=== PATIENT | male | born 1940 | race Caucasian/White ===

== ENCOUNTER → 2017-11-30 13:30 | Outpatient (CLI) | payer MEDICARE, BC, SELFPAY | PROVIDERS: PCP Family Medicine; Visit Provider Psychiatry & Neurology Neurology | DX: G20 Parkinson's disease (principal); I10 Essential (primary) hypertension | CPT/HCPCS: 99214 ==

== ENCOUNTER → 2017-12-01 10:34 | Outpatient (CLI) | payer MEDICARE, BC, SELFPAY | PROVIDERS: PCP Family Medicine | DX: R13.11 Dysphagia, oral phase (principal); R49.8 Other voice and resonance disorders | CPT/HCPCS: 92507 ==

== ENCOUNTER 2017-12-15 15:00 | Outpatient (RCR) | payer MEDICARE, BC, SELFPAY ==
--- NOTE | 2017-11-23 15:00 | PTTR_ITS ---
DATE: 11/23/17 SUBJECTIVE: Doing okay today. No complaints of any elbow or knee irritation given today throughout session. OBJECTIVE: Therapeutic procedures ([id number]) * x See flow sheet: Focus on strengthening of bilateral LE/ UE and core / hip stabilization. * x Provided skilled instruction in proper exercise performance * x Provided skilled manual cues to facilitate proper muscle recruitment and/ or movement pattern Ended session with MHP x 10 minutes to low back while in seated position. Direct treatment time: 45 minutes Total treatment time: 55 minutes
--- NOTE | 2017-11-25 14:49 | PTTR_ITS ---
DATE: 11/25/17 SUBJECTIVE: Wade states today that he is trying to speak more loudly and open his mouth wider when speaking, per speech therapy consultation. Did not feel that he was able to increase any of his exercises today, and feels as though he gets a good fatigue level with his current weights and reps. OBJECTIVE: Therapeutic procedures ([id number]). * x See flow sheet: focus was on strengthening of bilateral UE/LE and core/ hip stabilization. * Verbal and tactile cues were provided throughout today's session for proper positioning and isolation of specific muscles. * Treatment ended with application of moist heat pack to the low back w/ cryotherapy to the left knee x10 minutes while seated at no charge. Direct treatment time: 45 minutes Total treatment time: 55 minutes SG/gc
--- NOTE | 2017-12-06 14:00 | PTTR_ITS ---
DATE: 12/06/17 SUBJECTIVE: Wade states he has been holding up pretty well. He has been working quite a bit with speech pathologist working on volume and tongue motions. He follows up with them next week. Overall feels more stable on his feet with PT and has been holding up well with his HEP so long as his home care provider is there to help with some of the exercises, getting bands set up for him. Therapeutic procedures ([id number]). Bilateral UE/LE strengthening. Work on some verbal cues for proper squatting positions to avoid excessive anterior translation of knees over toes. Also offer verbal cues for proper upper back, postural positioning to avoid such slouched forward head posturing. Discuss this will also help with his vocal cord strength for volume of speech. Did progress to incorporate some Nautilus resistance hamstring and quad strengthening exercises. Direct treatment time: 30 mins Total treatment time: 30 mins followed by completion of strengthening with PSYCH SOCIAL WORKER April Quinones PTA (see her note) P: Continue as above 2x a week for next couple weeks, then start tapering him off for just HEP. MM/dl
--- NOTE | 2017-12-06 14:30 | PTTR_ITS ---
DATE: 12/06/17 Co-treat with supervising PT, Amadou Sandhu. OBJECTIVE: Therapeutic procedures ([id number]) * x See flow sheet: Completed remaining therapeutic exercises with client, adding quad and hams machines as per supervising PT's request. * x Provided skilled instruction in proper exercise performance * x Provided skilled manual cues to facilitate proper muscle recruitment and/ or movement pattern MHP to low back and cryotherapy to left knee at conclusion of session. Direct treatment time: 20 minutes Total treatment time: 30 minutes
--- NOTE | 2017-12-09 14:34 | PTTR_ITS ---
DATE: 12/09/17 SUBJECTIVE: No complaints are offered today. He asks for an updated HEP, secondary to having so many different papers that he is not sure what he should be performing. We discussed attending P.T. 1x per week, and he agrees. OBJECTIVE: Therapeutic procedures ([id number]). * x See flow sheet: upgraded his program by increasing reps of hip flexion, trying to work on AAROM while seated, working eccentric holds. Performed a ther-ex routine with verbal and tactile cues for proper pelvic alignment with standing hip PREs. Direct treatment time: 2:45 til 3:30 P.M. Assessment: Holding up very well with exercises. I do feel it is appropriate to start decreasing his frequency of treatment to 1x per week. MM/gc
--- NOTE | 2017-12-15 09:52 | PTTR_ITS ---
DATE: 12/15/17 SUBJECTIVE: Wade states that he is doing ok. He admits that he feels a little stronger and his endurance is better to tolerate functional activities at home. His pain level has not changed much. OBJECTIVE: Therapeutic procedures ([id number]). * x See flow sheet: for global strength and conditioning while incorporating functional mobility * x Provided skilled instruction in proper exercise performance: to avoid compensation, and engage specific muscle groups. * Ended with cryo to low back x 10 min. Direct treatment time: 35 min Total treatment time: 50 min (finished via wellness at no charge.)
== END 2017-12-17 23:59 | disposition home or self-care (01) ==
LOC: PT 15:00
PROVIDERS: PCP Family Medicine; Referring Provider Family Medicine; Visit Provider Family Medicine
DX: M25.562 Pain in left knee (principal); R26.89 Other abnormalities of gait and mobility; R29.898 Other symptoms and signs involving the musculoskeletal system; M06.9 Rheumatoid arthritis, unspecified
CPT/HCPCS: 97110

== ENCOUNTER 2017-12-16 02:46 | Outpatient (CLI) | payer MEDICARE, BC, SELFPAY | END 2017-12-16 02:47 | PROVIDERS: PCP Family Medicine | DX: R13.11 Dysphagia, oral phase (principal); R49.0 Dysphonia | CPT/HCPCS: 92507 ==

== ENCOUNTER 2017-12-30 11:02 | Outpatient (RCR) | payer MEDICARE, BC, SELFPAY | END 2018-01-16 23:59 | disposition home or self-care (01) | LOC: SP 11:02 | PROVIDERS: PCP Family Medicine | DX: R13.11 Dysphagia, oral phase (principal); R47.89 Other speech disturbances | CPT/HCPCS: 92507 ==

== ENCOUNTER 2018-01-31 09:58 | Outpatient (CLI) | payer MEDICARE, BC, SELFPAY ==
[2018-01-31 14:33] LABS: Abs Immature Grans 0.01 k/cumm (0.0-0.09); Absolute Basophil Count 0.01 k/cumm (0.0-0.2); Absolute Eosinophil Count 0.06 k/cumm (0.0-0.7); Absolute Monocyte Count 0.47 k/cumm (0.11-0.7); Absolute Neutrophil Count 3.76 k/cumm (1.2-6.7); Basophils % 0.2; Eosinophils % 1.1; HCT 35.8 % (40.0-50.0); HGB 11.8 g/dL (13.5-17.5); Immature Grans % 0.2; Lymphocytes % 23.2; Mean Corpuscular Hemoglobin 34.3 pg (27.0-33.0); Mean Corpuscular Volume 104.1 fL (80-95); Mean Platelet Volume 9.7 fL (8.0-11.0); Monocytes % 8.4; Neutrophils % 66.9; Platelet Count 149 x1000/uL (130-400); RBC 3.44 m/cumm (4.50-6.00); RBC Distribution Width 13.6 % (11.8-14.1); White Blood Cell Count 5.61 k/cumm (4.4-10.8)
[2018-01-31 15:07] LABS: ALT 16 U/L (12-78); AST 27 U/L (15-37); Albumin 4.2 g/dL (3.4-5.0); Alkaline Phosphatase 59 U/L (46-116); Anion Gap 8.8 mmol/L (3-11); BUN 44 mg/dL (7-18); Bilirubin, Total 0.3 mg/dL (0.2-1.0); C-Reactive Protein 0.19 mg/dL (0.0-0.3); CO2 28.2 mmol/L (21.0-32.0); Calcium 9.1 mg/dL (8.5-10.1); Chloride 104 mmol/L (98-107); Glucose 109 mg/dL (70-100); Potassium 5.7 mmol/L (3.5-5.1); Sodium 141 mmol/L (136-145); Total Protein 7.4 g/dL (6.4-8.2)
== END 2018-01-31 10:18 ==
PROVIDERS: PCP Family Medicine; Referring Provider Internal Medicine; Visit Provider Internal Medicine Rheumatology
DX: C61 Malignant neoplasm of prostate (principal); M06.9 Rheumatoid arthritis, unspecified; Z79.899 Other long term (current) drug therapy; I10 Essential (primary) hypertension; G20 Parkinson's disease; K11.7 Disturbances of salivary secretion
CPT/HCPCS: 80053; 99214; 84153; 84154; 85025; 86140

== ENCOUNTER 2018-03-17 01:33 | Outpatient (CLI) | payer MEDICARE, BC, SELFPAY ==
[2018-03-17 11:30] LABS: CREATININE 1.09 mg/dL (0.70-1.30)
[2018-03-17] MEDS: Omnipaque 350 MG/ML 50 ML BTL IJ (11:39)
[2018-03-17] MEDS: Omnipaque 350 MG/ML 100 ML BTL IJ (13:13)
--- NOTE | 2018-03-17 13:14 | DI.CT_ITS ---
SYMPTOMS/DIAGNOSIS: H/O PROSTATE CA, RISING PSA, C61 ABDOMINAL AND PELVIC CT: CT examination of the abdomen and pelvis was performed with a bolus infusion of 100 cc's of Omnipaque 350 and ingestion of dilute barium. Biphasic hepatic imaging was obtained. The visualized lung bases are clear. The liver and spleen appear normal. No pancreatic abnormality seen. The adrenals and kidneys appear normal. The abdominal aorta is of normal diameter and no major vascular abnormality is seen. No significant abdominal wall hernia seen. No abdominal or pelvic adenopathy identified. No evidence of bowel obstruction. Multiple vascular clips noted in the region of the prostate. No focal bony lesion identified. Marked degenerative changes of the lumbar spine noted. The adrenals and kidneys appear normal. No evidence of urinary tract calcification or obstruction. The urinary bladder is unremarkable in appearance. CONCLUSION: No evidence of acute disease. No specific evidence of prostatic metastatic disease.
--- NOTE | 2018-03-17 14:30 | DI.NM_ITS ---
SYMPTOMS/DIAGNOSIS: H/O PROSTATE CA, RISING PSA, C61 WHOLE BODY BONE SCAN: Whole body bone scan was performed with intravenous infusion of 23.5 mCi of technetium 99 labelled methylene diphosphonate with delayed imaging of the whole body. Today's CT examination showed severe degenerative changes and scoliosis of the lumbar spine. This corresponds to areas of increased uptake seen in the lumbar region on bone scan. Mildly increased uptake noted in the elbows, shoulders and ankles bilaterally, consistent with degenerative change with bilateral knee joint replacements in position. No other areas of increased uptake seen. CONCLUSION: Findings as described are unlikely to represent metastatic disease. Severe DJD of the lumbar spine.
== END 2018-03-17 01:53 ==
PROVIDERS: PCP Family Medicine; Visit Provider Nurse Practitioner Family
DX: R97.20 Elevated prostate specific antigen [PSA] (principal); Z85.46 Personal history of malignant neoplasm of prostate; M85.871 Other specified disorders of bone density and structure, right ankle and foot; M85.872 Other specified disorders of bone density and structure, left ankle and foot; M85.832 Other specified disorders of bone density and structure, left forearm; M85.831 Other specified disorders of bone density and structure, right forearm; M85.811 Other specified disorders of bone density and structure, right shoulder; M85.812 Other specified disorders of bone density and structure, left shoulder; M47.816 Spondylosis without myelopathy or radiculopathy, lumbar region; Z96.653 Presence of artificial knee joint, bilateral
CPT/HCPCS: 36415; 78306; 74177; 82565; J3490; Q9967

== ENCOUNTER → 2018-04-04 11:17 | Outpatient (BNVA) | payer MEDICARE, BC, SELFPAY | PROVIDERS: PCP Family Medicine; Visit Provider Psychiatry & Neurology Neurology | DX: G20 Parkinson's disease (principal); G24.01 Drug induced subacute dyskinesia; T42.8X5A Adverse effect of antiparkinsonism drugs and other central muscle-tone depressants, initial encounter; I10 Essential (primary) hypertension; K11.7 Disturbances of salivary secretion | CPT/HCPCS: 99214 ==

== ENCOUNTER 2018-04-13 11:31 | Outpatient (CLI) | payer MEDICARE, BC, SELFPAY ==
[2018-04-13 15:19] LABS: Potassium 4.8 mmol/L (3.5-5.1)
== END 2018-04-13 11:51 ==
PROVIDERS: PCP Family Medicine; Visit Provider Family Medicine
DX: E78.5 Hyperlipidemia, unspecified (principal)
CPT/HCPCS: 36415; 84132

== ENCOUNTER 2018-06-29 10:11 | Outpatient (CLI) | payer MEDICARE, BC, SELFPAY ==
[2018-06-29 12:34] LABS: Absolute Basophil Count 0.02 k/cumm (0.0-0.2); Absolute Eosinophil Count 0.05 k/cumm (0.0-0.7); Absolute Lymphocyte Count 1.21 k/cumm (1.2-3.4); Absolute Monocyte Count 0.36 k/cumm (0.11-0.7); Absolute Neutrophil Count 2.97 k/cumm (1.2-6.7); Basophils % 0.4; Eosinophils % 1.1; HCT 35.6 % (40.0-50.0); HGB 11.7 g/dL (13.5-17.5); Lymphocytes % 26.2; Mean Corp. HGB Concentration 32.9 g/dL (32.0-36.0); Mean Corpuscular Hemoglobin 34.1 pg (27.0-33.0); Mean Corpuscular Volume 103.8 fL (80-95); Mean Platelet Volume 9.9 fL (8.0-11.0); Monocytes % 7.8; Neutrophils % 64.5; Platelet Count 158 x1000/uL (130-400); RBC 3.43 m/cumm (4.50-6.00); RBC Distribution Width 13.3 % (11.8-14.1); White Blood Cell Count 4.61 k/cumm (4.4-10.8)
[2018-06-29 12:52] LABS: ALT 14 U/L (12-78); AST 30 U/L (15-37); Alkaline Phosphatase 65 U/L (46-116); BUN 27 mg/dL (7-18); Bilirubin, Total 0.4 mg/dL (0.2-1.0); CREATININE 1.18 mg/dL (0.70-1.30); Calcium 9.2 mg/dL (8.5-10.1); Chloride 103 mmol/L (98-107); Glucose 118 mg/dL (70-100); Potassium 4.8 mmol/L (3.5-5.1); Sodium 140 mmol/L (136-145)
[2018-06-29 12:58] LABS: C-Reactive Protein < 0.05 mg/dL (0.0-0.3)
== END 2018-06-29 10:31 ==
PROVIDERS: PCP Family Medicine; Visit Provider Internal Medicine Rheumatology
DX: M06.9 Rheumatoid arthritis, unspecified (principal); Z79.899 Other long term (current) drug therapy
CPT/HCPCS: 36415; 80053; 85025; 86140

== ENCOUNTER → 2018-07-11 13:25 | Outpatient (BNVA) | payer MEDICARE, BC, SELFPAY | PROVIDERS: PCP Family Medicine; Visit Provider Psychiatry & Neurology Neurology | DX: G20 Parkinson's disease (principal); G24.01 Drug induced subacute dyskinesia; T42.8X5A Adverse effect of antiparkinsonism drugs and other central muscle-tone depressants, initial encounter | CPT/HCPCS: 99214 ==

== ENCOUNTER 2018-07-15 15:09 | Outpatient (REF) | payer MEDICARE, BC, SELFPAY ==
--- NOTE | 2018-07-15 13:45 | SKI_PTH ---
PATIENT: Wade Lau LOC: [facility] U#:[id number] AGE/SX: 78/M ROOM: RE07/15/[address]: Willie Hodges MD : [id number] BED: DIS: 07/15/2018 SPEC #: [id number] RECD: 07/18/18 12:48 STATUS: XIMNEA REQ #: [id number] WON: 07/15/18 13:[address]: Willie Hodges DEPT: Surgical Specimen RECD BY: Leonela Parks Tissues: 1 - SKIN BIOPSY(SHAVE/PUNCH) Procedures: IMMUNOPEROXIDASE STAIN SKIN LEVEL 4 Comments: [id number]
== END 2018-07-15 15:29 ==
LOC: LBN 15:09
PROVIDERS: PCP Family Medicine; Visit Provider Family Medicine
DX: D22.72 Melanocytic nevi of left lower limb, including hip (principal)
CPT/HCPCS: 88305; 88361

== ENCOUNTER 2018-08-31 10:08 | Outpatient (CLI) | payer MEDICARE, BC, SELFPAY ==
[2018-08-31 13:15] LABS: Abs Immature Grans 0.01 k/cumm (0.0-0.09); Absolute Basophil Count 0.01 k/cumm (0.0-0.2); Absolute Eosinophil Count 0.07 k/cumm (0.0-0.7); Absolute Monocyte Count 0.38 k/cumm (0.11-0.7); Absolute Neutrophil Count 2.51 k/cumm (1.2-6.7); Basophils % 0.2; Eosinophils % 1.6; HCT 37.1 % (40.0-50.0); HGB 12.3 g/dL (13.5-17.5); Immature Grans % 0.2; Mean Corp. HGB Concentration 33.2 g/dL (32.0-36.0); Mean Corpuscular Hemoglobin 33.4 pg (27.0-33.0); Mean Corpuscular Volume 100.8 fL (80-95); Monocytes % 8.7; Neutrophils % 57.3; Platelet Count 149 x1000/uL (130-400); RBC 3.68 m/cumm (4.50-6.00); White Blood Cell Count 4.38 k/cumm (4.4-10.8)
[2018-08-31 14:26] LABS: ALT 15 U/L (12-78); AST 24 U/L (15-37); Albumin 4.1 g/dL (3.4-5.0); Alkaline Phosphatase 56 U/L (46-116); BUN 35 mg/dL (7-18); Bilirubin, Total 0.4 mg/dL (0.2-1.0); CREATININE 1.07 mg/dL (0.70-1.30); Calcium 9.4 mg/dL (8.5-10.1); Chloride 104 mmol/L (98-107); Glucose 105 mg/dL (70-100); Potassium 5.3 mmol/L (3.5-5.1); Sodium 140 mmol/L (136-145); Total Protein 7.3 g/dL (6.4-8.2)
[2018-08-31 14:38] LABS: C-Reactive Protein < 0.05 mg/dL (0.0-0.3)
[2018-09-01 10:05] LABS: PSA, Diagnostic 2.7 ng/ml (0-6.5)
== END 2018-08-31 10:28 ==
PROVIDERS: Internal Medicine; PCP Family Medicine; Visit Provider Internal Medicine Rheumatology
DX: C61 Malignant neoplasm of prostate (principal); M06.9 Rheumatoid arthritis, unspecified; Z79.899 Other long term (current) drug therapy
CPT/HCPCS: 36415; 80053; 84153; 85025; 86140

== ENCOUNTER → 2018-10-12 14:07 | Outpatient (BNVA) | payer MEDICARE, BC, SELFPAY | PROVIDERS: PCP Family Medicine; Visit Provider Psychiatry & Neurology Neurology | DX: K11.7 Disturbances of salivary secretion (principal); G20 Parkinson's disease; G56.03 Carpal tunnel syndrome, bilateral upper limbs; G56.22 Lesion of ulnar nerve, left upper limb; I10 Essential (primary) hypertension | CPT/HCPCS: 99214 ==

== ENCOUNTER 2019-01-04 12:08 | Outpatient (CLI) | payer MEDICARE, BC, SELFPAY ==
[2019-01-04 14:51] LABS: Abs Immature Grans 0.01 k/cumm (0.0-0.09); Absolute Basophil Count 0.01 k/cumm (0.0-0.2); Absolute Eosinophil Count 0.06 k/cumm (0.0-0.7); Absolute Lymphocyte Count 1.23 k/cumm (1.2-3.4); Absolute Monocyte Count 0.31 k/cumm (0.11-0.7); Absolute Neutrophil Count 2.88 k/cumm (1.2-6.7); Basophils % 0.2; Eosinophils % 1.3; HCT 35.3 % (40.0-50.0); HGB 11.4 g/dL (13.5-17.5); Immature Grans % 0.2; Lymphocytes % 27.3; Mean Corp. HGB Concentration 32.3 g/dL (32.0-36.0); Mean Corpuscular Volume 102.3 fL (80-95); Mean Platelet Volume 9.5 fL (8.0-11.0); Monocytes % 6.9; Neutrophils % 64.1; Platelet Count 165 x1000/uL (130-400); RBC 3.45 m/cumm (4.50-6.00); RBC Distribution Width 13.7 % (11.8-14.1)
[2019-01-04 15:42] LABS: ALT 18 U/L (16-63); AST 24 U/L (15-37); Alkaline Phosphatase 56 U/L (46-116); Anion Gap 11.6 mmol/L (3-11); BUN 33 mg/dL (7-18); Bilirubin, Total 0.4 mg/dL (0.2-1.0); CO2 25.4 mmol/L (21.0-32.0); CREATININE 1.14 mg/dL (0.70-1.30); Chloride 104 mmol/L (98-107); Glucose 133 mg/dL (70-100); Potassium 4.7 mmol/L (3.5-5.1); Sodium 141 mmol/L (136-145)
[2019-01-04 15:50] LABS: C-Reactive Protein < 0.05 mg/dL (0.0-0.3)
== END 2019-01-04 12:28 ==
PROVIDERS: PCP Family Medicine; Visit Provider Internal Medicine Rheumatology
DX: M06.9 Rheumatoid arthritis, unspecified (principal); Z79.899 Other long term (current) drug therapy
CPT/HCPCS: 36415; 80053; 85025; 86140

== ENCOUNTER → 2019-01-23 12:56 | Outpatient (BNVA) | payer MEDICARE, BC, SELFPAY | PROVIDERS: PCP Family Medicine; Referring Provider Family Medicine; Visit Provider Psychiatry & Neurology Neurology | DX: K11.7 Disturbances of salivary secretion (principal); G24.01 Drug induced subacute dyskinesia; G56.03 Carpal tunnel syndrome, bilateral upper limbs; G56.22 Lesion of ulnar nerve, left upper limb; G20 Parkinson's disease; R13.10 Dysphagia, unspecified; I10 Essential (primary) hypertension | CPT/HCPCS: 99214 ==

== ENCOUNTER 2019-03-16 02:48 | Emergency (ER) | payer MEDICARE, BC, SELFPAY ==
[2019-03-16 02:48] VITALS: BP 100/71; PULSE 77; RESP 14; TEMP 36.6; O2SAT 97
[2019-03-16 02:58] VITALS: RESP 15
--- NOTE | 2019-03-16 03:08 | ED.GENADUL_ITS ---
Discharge Plan Disposition Patient Disposition: HOME Condition: Good Discharge Details Chief Complaint: GenMedical Clinical Impression: Mild renal insufficiency, Generalized weakness Primary Care Provider: Willie Hodegs ED Provider: Toño Fay [place] Meds and New Rx's Prescriptions: Continued cyanocobalamin (vitamin B-12) 1,000 mcg tablet 1,000 mcg PO DAILY RF: 0 omega-3 fatty acids [Fish Oil Concentrate] 1,000 mg capsule 1,000 mg PO DAILY RF: 0 loperamide [Anti-Diarrheal (loperamide)] 2 mg capsule 2 mg PO DAILY PRN RF: 0 ibuprofen 200 mg tablet 200 - 800 mg PO HS PRN RF: 0 amoxicillin 500 mg capsule 2 gm PO ONCE PRN (Reason: TAKE 1 HOUR PRIOR TO DENTAL WORK) RF: 0 folic acid 1 mg tablet 1 mg PO DAILY RF: 0 ascorbic acid (vitamin C) 500 mg tablet 500 mg PO .4 DAYS A WEEK RF: 0 zinc 50 mg tablet 50 mg PO .3 DAYS A WEEK RF: 0 misoprostol 100 mcg tablet 100 mcg PO QAM Qty: 90 RF: 3 sertraline 50 mg tablet 50 mg PO DAILY Qty: 90 RF: 3 sertraline 25 mg tablet 25 mg PO DAILY Qty: 90 RF: 3 psyllium husk [Metamucil] 0.4 gram capsule 0.4 gm PO PRN PRNRF: 0 econazole 1 % cream 1 applic TP BID RF: 0 lisinopril 40 mg tablet 20 mg PO DAILY RF: 0 cetirizine 10 mg tablet 5 mg PO DAILY PRNRF: 0 Enbrel 50 MG/1 ML syringe 50 mg SQ 1x/wk RF: 0 fluocinonide 120 GM cream 120 gm Topical PRN RF: 0 Benedict-Mag 1 EACH tablet,chewable 1 ea PO DAILY RF: 0 cholecalciferol (vitamin D3) [Vitamin D3] 2,000 UNIT capsule 1,000 unit PO DAILY RF: 0 nystatin 100,000 unit/gram powder 1 applic TP BID PRN (Reason: inguinal rash) Qty: 30 RF: 1 methotrexate sodium 2.5 mg tablet 5 mg PO QWEEK Qty: 24 RF: 3 simvastatin 10 mg tablet 10 mg PO QPM Qty: 90 RF: 3 trazodone 50 mg tablet 50 - 100 mg PO HS Qty: 180 RF: 2 famotidine 40 mg tablet 40 mg PO QHS Qty: 90 RF: 3 carbidopa-levodopa 25-100 mg tablet 1 tab PO TID Qty: 270 RF: 3 Discharge Instructions Instructions: Weakness (ED) Additional Instructions: Please remember to drink plenty of fluids to hydrate. Always use your walker or cane to help with ambulation. Follow-up with primary care next week for reevaluation and for repeat labs. Return to ED if you develop fever, mental status changes, focal weakness, chest pain, abdominal pain, other concerns or problems. Referrals: Willie Hodges [Primary Care Provider] - Medical Decision Making Patient presenting with more of a general weakness and mild confusion than anything else. This does not strike me as focal issue related to stroke. He is afebrile and has normal vitals. However I feel work-up for metabolic and infectious etiologies is appropriate. IV established and laboratory studies obtained. Chest x-ray and urinalysis ordered. EKG ordered. EKG is normal. Laboratory studies for the most part unremarkable other than some elevation of his kidney function. He reports no vomiting or diarrhea. He does think he has been eating and drinking okay but admits maybe not as well as he should be. He is not on diuretics. Urine is negative for infection. Chest x-ray without acute disease. Patient was able to get up here and ambulate with a walker without significant difficulty. He reports that he is walking about the way he usually does. His biggest issue seems to be trying to get up from a sitting position. He reports that physical therapy has been teaching him exercises to get better with this. He is able to eat and drink without difficulty so I think he should build to hydrate at home. He will need to follow-up with primary care next week for repeat BMP. Return to ED if he develops fever, mental status changes, focal neurologic changes, chest pain, abdominal pain, other concerns or problems. Medical Records Medical records reviewed: Yes I reviewed the patient's medical records. Lab Data Lab results reviewed: Yes I reviewed the patient's lab results. ECG Data Attestation: I personally reviewed and interpreted this ECG (s) as follows: Prior ECG tracings: not available for review Interpretation: Sinus rhythm at 72. Normal intervals and axis. No ST changes. HPI General Mode of arrival: EMS . Date/Time Provider Initiated Documentation: 03/16/19 02:55 . Limitations to Documentation: no limitations . Information obtained by: patient, EMS, RN notes reviewed and old records reviewed . HPI Narrative: Patient presents to ED by ambulance because of inability to get out of his chair. He was having difficulty getting out of his chair. Had a friend come over and she thought he was having some speech problems and that his right leg was weak. EMS was called. Patient was transported here. Patient reports that the right thigh is always weak and has been since his knee replacement. He reports having difficulty getting out of his chair at times but not always. He also reports having some difficulty with remembering what he was going to say not speech difficulty per se. This has been ongoing for a few weeks and is not acutely different tonight. He denies being ill recently. He has been eating and drinking normally. He does have a history of Parkinson's as well as severe rheumatoid arthritis. Denies chest pain, shortness of breath, abdominal pain, headache. Related Data Home Medications Medication Instructions Recorded Confirmed Enbrel 50 mg SQ 1x/wk 12/04/13 03/16/19 fluocinonide 120 gm TOPICAL PRN 12/04/13 03/16/19 Benedict-Mag 1 ea PO DAILY tab.chew 10/30/14 03/16/19 cholecalciferol (vitamin D3) 1,000 unit PO DAILY 06/30/16 03/16/19 [Vitamin D3] amoxicillin 500 mg capsule 2 gm PO ONCE PRN cap 12/24/17 03/16/19 cyanocobalamin (vitamin B-12) 1,000 mcg PO DAILY 12/24/17 03/16/19 1,000 mcg tablet ibuprofen 200 mg tablet 200 - 800 mg PO HS PRN tab 12/24/17 03/16/19 loperamide 2 mg capsule 2 mg PO DAILY PRN cap 12/24/17 03/16/19 omega-3 fatty acids 1,000 mg 1,000 mg PO DAILY 12/24/17 03/16/19 capsule ascorbic acid (vitamin C) 500 mg 500 mg PO .4 DAYS A WEEK tab 04/04/18 03/16/19 tablet zinc 50 mg tablet 50 mg PO .3 DAYS A WEEK tab 04/04/18 03/16/19 nystatin 100,000 unit/gram topical 1 applic TP BID PRN #30 gm 05/10/18 03/16/19 powder econazole 1 % topical cream 1 applic TP BID 10/12/18 03/16/19 folic acid 1 mg tablet 1 mg PO DAILY tab 10/12/18 03/16/19 psyllium husk 0.4 gram capsule 0.4 gm PO PRN PRN cap 10/12/18 03/16/19 methotrexate sodium 2.5 mg tablet 5 mg PO QWEEK #24 tab 11/14/18 03/16/19 simvastatin 10 mg tablet 10 mg PO QPM #90 tab 11/14/18 03/16/19 trazodone 50 mg tablet 50 - 100 mg PO HS #180 tab 11/15/18 03/16/19 cetirizine 10 mg tablet 5 mg PO DAILY PRN 01/23/19 03/16/19 lisinopril 40 mg tablet 20 mg PO DAILY tab-cap 01/23/19 03/16/19 misoprostol 100 mcg tablet 100 mcg PO QAM #90 tab 01/24/19 03/16/19 sertraline 25 mg tablet 25 mg PO DAILY #90 tab 01/24/19 03/16/19 sertraline 50 mg tablet 50 mg PO DAILY #90 tab 01/24/19 03/16/19 famotidine 40 mg tablet 40 mg PO QHS #90 tab 02/13/19 03/16/19 carbidopa 25 mg-levodopa 100 mg 1 tab PO TID #270 tab 02/23/19 03/16/19 tablet Previous Rx's Medication Instructions Recorded nystatin 100,000 unit/gram topical 1 applic TP BID PRN #30 gm 05/10/18 powder methotrexate sodium 2.5 mg tablet 5 mg PO QWEEK #24 tab 11/14/18 simvastatin 10 mg tablet 10 mg PO QPM #90 tab 11/14/18 trazodone 50 mg tablet 50 - 100 mg PO HS #180 tab 11/15/18 misoprostol 100 mcg tablet 100 mcg PO QAM #90 tab 01/24/19 sertraline 25 mg tablet 25 mg PO DAILY #90 tab 01/24/19 sertraline 50 mg tablet 50 mg PO DAILY #90 tab 01/24/19 famotidine 40 mg tablet 40 mg PO QHS #90 tab 02/13/19 carbidopa 25 mg-levodopa 100 mg 1 tab PO TID #270 tab 02/23/19 tablet Allergies Allergy/AdvReac Type Severity Reaction Status Date / Time POLLEN Allergy Unknown Uncoded 01/24/19 14:21 dust AdvReac Unknown PND, RUNNY Uncoded 01/24/19 14:21 NOSE General Stated Complaint: GenMedical ELAINE: 3 Review of Systems Narrative: 01/30 Review of Systems completed and is negative except as stated above in HPI (Systems reviewed: Const, Eyes, ENT, Resp, CV, GI, , MSK, Skin, Neuro) PFSH Medical History Hyperlipidemia Hypertension Insomnia Ocular hemorrhage Parkinsonism (Acute) 10/29/14; [facility] ([facility] SCANNED) Prostate cancer RA (rheumatoid arthritis) Spinal stenosis Surgical History Extraction of cataract LEFT REMOVAL; LEFT RETINAL BUCKLE W/VITRIECTOMY; RIGHT RETINAL DETACHMENT W/VITRIECTOMY; YAG LASER TX CLOUDED LENS FOOT SURGERY (~1979) Open Carpal Tunnel release Prostatectomy RADICAL Replacement of total knee joint (~12/2013) Both spinal surgery Total replacement of hip RIGHT Transurethral prostatectomy Social History Smoking/Tobacco Use Status: Never Alcohol Intake: current Alcohol Intake frequency: 0-2 drinks per day Substance use type: does not use Duration: 15-30 minutes/day Frequency: 3-4 times per week Seatbelt use: always Do you feel safe at home: Yes Do you feel safe in your relationship?: Yes Exam Narrative Exam Narrative: Vitals: Afebrile. Normal vitals and room air pulse ox. Const: Thin elderly male in NAD. HEENT: NC/AT. Normal facial exam. Neck: Supple. Trachea midline. Lungs: Normal respiratory effort. Lungs are clear. Cor: RRR with murmur. Good radial pulses. GI: Soft. NT/ND. No guarding or rebound. Neuro: A+O x 3. CN grossly in tact. Good strength in the upper extremities. Sensation intact. Good distal strength in the lower extremities. Difficulty elevating right leg off bed which patient states is chronic. Speech is clear to me with no dysarthria or a aphasia. He does have pauses and memory lapses but usually recovers with some time. Ext: No C/C/E. Bilateral hand atrophy. Skin: Warm and dry without rash. Course Vital Signs Vital signs: Vital Signs Temperature 97.9 F 03/16/19 02:48 Pulse 77 03/16/19 02:48 Respiratory Rate 14 03/16/19 02:48 Blood Pressure 100/71 03/16/19 02:48 Pulse Oximetry 97 03/16/19 02:48 Temperature 97.9 F 03/16/19 02:48 Temperature Source Skin 03/16/19 02:48 Pulse 77 03/16/19 02:48 Respiratory Rate 15 03/16/19 02:58 Respiratory Effort 03/16/19 02:58 Blood Pressure 100/71 03/16/19 02:48 Blood Pressure Position Supine 03/16/19 02:48 Pulse Oximetry 97 03/16/19 02:48 Oxygen Delivery Method Room Air 03/16/19 02:48 Oxygen Flow Rate 0 03/16/19 02:48 Pain Level 0 03/16/19 02:48
[2019-03-16 03:30] LABS: Bilirubin Negative (Negative); Blood Negative (Negative); Clarity Clear (Clear); Glucose Negative (Negative); Ketones Negative (Negative); Leukocyte Esterase Negative (Negative); Nitrite Negative (Negative); Urobilinogen 0.2 EU/dL (Up TO 0.2)
[2019-03-16 03:41] LABS: Abs Immature Grans 0.02 k/cumm (0.0-0.09); Absolute Basophil Count 0.02 k/cumm (0.0-0.2); Absolute Eosinophil Count 0.08 k/cumm (0.0-0.7); Absolute Lymphocyte Count 1.03 k/cumm (1.2-3.4); Absolute Monocyte Count 0.69 k/cumm (0.11-0.7); Absolute Neutrophil Count 7.63 k/cumm (1.2-6.7); Basophils % 0.2; Eosinophils % 0.8; HCT 36.6 % (40.0-50.0); Immature Grans % 0.2; Lymphocytes % 10.9; Mean Corp. HGB Concentration 32.8 g/dL (32.0-36.0); Mean Corpuscular Hemoglobin 33.1 pg (27.0-33.0); Mean Corpuscular Volume 101.1 fL (80-95); Mean Platelet Volume 9.5 fL (8.0-11.0); Monocytes % 7.3; Neutrophils % 80.6; Platelet Count 196 x1000/uL (130-400); RBC 3.62 m/cumm (4.50-6.00); RBC Distribution Width 13.2 % (11.8-14.1); White Blood Cell Count 9.47 k/cumm (4.4-10.8)
--- NOTE | 2019-03-16 03:50 | NUR.NOTE ---
GENTRY Claire from home with c/o weakness. Pt was unable to get out of chair, called his friend Yessenia who called EMS. Yessenia notes pt was having difficulty with word finding. right leg seemed weak. Pt reports right leg has been weak for a long time after surgery and that he has been having word finding difficulty x several weeks. Face symmetrical, speech clear, slow at times. Tongue at midline. Pt having intermittent word finding difficulty. Pt reports difficulty lifting right leg off bed, 5/5 strength to [place] feet. SR on monitor. denies pain, recent illness, falls. Up to commode with 2 assist, pt unsteady on feet.
[2019-03-16 03:54] LABS: ALT 14 U/L (16-63); AST 22 U/L (15-37); Albumin 4.3 g/dL (3.4-5.0); Alkaline Phosphatase 63 U/L (46-116); Anion Gap 11.5 mmol/L (3-11); BUN 44 mg/dL (7-18); Bilirubin, Total 0.4 mg/dL (0.2-1.0); CO2 25.5 mmol/L (21.0-32.0); CREATININE 1.72 mg/dL (0.70-1.30); Calcium 9.4 mg/dL (8.5-10.1); Chloride 103 mmol/L (98-107); Estimated GFR 38.75 (mL/min/1.73m2); Glucose 110 mg/dL (74-106); Magnesium 2.1 mg/dL (1.8-2.4); Potassium 4.5 mmol/L (3.5-5.1); Sodium 140 mmol/L (136-145)
[2019-03-16 03:55] LABS: Troponin I < 0.05 ng/Ml (<0.06)
--- NOTE | 2019-03-16 03:57 | DI.RAD_ITS ---
EXAM: XR CHEST 2V PA LATERAL CLINICAL HISTORY: generalized weakness TECHNIQUE: The study was performed according to usual protocol. FINDINGS: Heart is not enlarged. Eventration of the diaphragm noted on the right portion of the colon interpos ed between liver and diaphragm. Findings appears similar to prior CT of 03/08/2018. There appear to be mild changes of COPD and scarring. No pleural effusion. No focal consolidation. IMPRESSION: No evidence of acute process.
--- NOTE | 2019-03-16 04:03 | NUR.NOTE ---
Neighbor/Friend Yessenia [phone]
--- NOTE | 2019-03-16 04:16 | DI.VRAD_ITS ---
PROCEDURE INFORMATION: Exam: XR Chest, 2 Views Exam date and time: 03/16/2019 3:52 AM Age: 79 years old Clinical history: Other: Generalized weakness TECHNIQUE: Imaging protocol: XR of the chest Views: 2 views. COMPARISON: No relevant prior studies available. FINDINGS: Lungs: Unremarkable. No consolidation. Pleural space: Unremarkable. No pleural effusion. No pneumothorax. Heart/Mediastinum: Unremarkable. No cardiomegaly. Diaphragm: Minimal elevation or eventration of right hemidiaphragm anteriorly. Bones/joints: Healed right rib fractures. IMPRESSION: No acute findings. Dictated and Authenticated by: Markos Owusu MD. Ordering:MAIK Lundberg MD
--- NOTE | 2019-03-16 04:30 | NUR.NOTE ---
ambulated in core with walker and steady gait. Pt reports he is ambulating at his baseline.
[2019-03-16 04:45] VITALS: BP 92/57; PULSE 82; RESP 16; TEMP 36.6; O2SAT 98
[2019-03-16] MEDS: Normal Saline 500 ML IV (04:45)
--- NOTE | 2019-03-16 05:18 | NUR.NOTE ---
Yessenia unable to drive in the dark, will pick pt up when it's light out.
[2019-03-16 05:19] VITALS: BP 97/51
== END 2019-03-16 06:43 | disposition home or self-care (01) ==
LOC: ER 05:56
PROVIDERS: Emergency Provider Emergency Medicine; PCP Family Medicine
DX: N28.9 Disorder of kidney and ureter, unspecified (principal); R53.1 Weakness; I10 Essential (primary) hypertension; G20 Parkinson's disease; Z96.653 Presence of artificial knee joint, bilateral
CPT/HCPCS: 36415; 80053; 93005; 96360; 99285; 71046; 81003; 83735; 84484; 85025; 93010; 99284

== ENCOUNTER 2019-03-23 10:04 | Outpatient (CLI) | payer MEDICARE, BC, SELFPAY ==
[2019-03-23 12:51] LABS: Abs Immature Grans 0.01 k/cumm (0.0-0.09); Absolute Basophil Count 0.02 k/cumm (0.0-0.2); Absolute Eosinophil Count 0.14 k/cumm (0.0-0.7); Absolute Lymphocyte Count 1.17 k/cumm (1.2-3.4); Absolute Monocyte Count 0.36 k/cumm (0.11-0.7); Absolute Neutrophil Count 3.35 k/cumm (1.2-6.7); Basophils % 0.4; Eosinophils % 2.8; HCT 36.8 % (40.0-50.0); HGB 11.8 g/dL (13.5-17.5); Immature Grans % 0.2; Lymphocytes % 23.2; Mean Corp. HGB Concentration 32.1 g/dL (32.0-36.0); Mean Corpuscular Hemoglobin 32.9 pg (27.0-33.0); Mean Corpuscular Volume 102.5 fL (80-95); Mean Platelet Volume 9.7 fL (8.0-11.0); Monocytes % 7.1; Neutrophils % 66.3; Platelet Count 194 x1000/uL (130-400); RBC 3.59 m/cumm (4.50-6.00); RBC Distribution Width 13.3 % (11.8-14.1); White Blood Cell Count 5.05 k/cumm (4.4-10.8)
[2019-03-23 13:03] LABS: C-Reactive Protein 0.08 mg/dL (0.0-0.3)
[2019-03-23 13:07] LABS: ALT 16 U/L (16-63); AST 29 U/L (15-37); Albumin 3.9 g/dL (3.4-5.0); Alkaline Phosphatase 58 U/L (46-116); Anion Gap 7.8 mmol/L (3-11); BUN 31 mg/dL (7-18); Bilirubin, Total 0.3 mg/dL (0.2-1.0); CO2 28.2 mmol/L (21.0-32.0); Calcium 9.1 mg/dL (8.5-10.1); Chloride 106 mmol/L (98-107); Estimated GFR 53.53 (mL/min/1.73m2); Glucose 109 mg/dL (74-106); Potassium 5.2 mmol/L (3.5-5.1); Sodium 142 mmol/L (136-145)
[2019-03-24 16:37] LABS: PSA, Diagnostic 4.4 ng/mL (0.0-6.5)
== END 2019-03-23 10:24 ==
PROVIDERS: Internal Medicine Rheumatology; Nurse Practitioner Family; PCP Family Medicine; Visit Provider Internal Medicine
DX: C61 Malignant neoplasm of prostate (principal); M06.9 Rheumatoid arthritis, unspecified; Z79.899 Other long term (current) drug therapy
CPT/HCPCS: 36415; 80053; 84153; 85025; 86140

== ENCOUNTER 2019-03-30 00:42 | Outpatient (CLI) | payer MEDICARE, BC, SELFPAY ==
[2019-03-30] MEDS: Omnipaque 350 MG/ML 100 ML BTL IJ (15:26)
--- NOTE | 2019-03-30 15:29 | DI.CT_ITS ---
EXAM: CT HEAD WO/W CLINICAL HISTORY: NEW ONSET HALLUCINATIONS, R44.1 TECHNIQUE: Before and after IV contrast COMPARISON: No exams were available for comparison FINDINGS: Intracranial hemorrhage, mass or infarct is seen. The ventricles are normal in size. No abnormal e nhancing lesions are seen on postcontrast images. There is no evidence of vascular occlusion or thro mbosis. No skull fracture or opacification of the sinuses or mastoid air cells is seen. There has b een previous surgery to both globes. IMPRESSION: Negative head CT
== END 2019-03-30 01:02 ==
PROVIDERS: PCP Family Medicine; Visit Provider Family Medicine
DX: R44.1 Visual hallucinations (principal)
CPT/HCPCS: 70470; J3490

== ENCOUNTER 2019-03-31 21:13 | Emergency (ER) | payer MEDICARE, BC, SELFPAY ==
[2019-03-31 21:15] VITALS: BP 122/59; PULSE 82; RESP 16; TEMP 37.4; O2SAT 99
[2019-03-31 21:20] VITALS: RESP 16
--- NOTE | 2019-03-31 21:25 | W.ED.GENAD ---
Discharge Plan Disposition Patient Disposition: HOME Condition: Stable Discharge Details Chief Complaint: AMS/LOC Clinical Impression: Disorientation Primary Care Provider: Willie Hodges ED Provider: Zeke Blanchard [place] Meds and New Rx's Prescriptions: Continued cyanocobalamin (vitamin B-12) 1,000 mcg tablet 1,000 mcg PO DAILY RF: 0 omega-3 fatty acids [Fish Oil Concentrate] 1,000 mg capsule 1,000 mg PO DAILY RF: 0 loperamide [Anti-Diarrheal (loperamide)] 2 mg capsule 2 mg PO DAILY PRN RF: 0 ibuprofen 200 mg tablet 200 - 800 mg PO HS PRN RF: 0 amoxicillin 500 mg capsule 2 gm PO ONCE PRN (Reason: TAKE 1 HOUR PRIOR TO DENTAL WORK) RF: 0 folic acid 1 mg tablet 1 mg PO DAILY RF: 0 ascorbic acid (vitamin C) 500 mg tablet 500 mg PO .4 DAYS A WEEK RF: 0 zinc 50 mg tablet 50 mg PO .3 DAYS A WEEK RF: 0 misoprostol 100 mcg tablet 100 mcg PO QAM Qty: 90 RF: 3 sertraline 50 mg tablet 50 mg PO DAILY Qty: 90 RF: 3 sertraline 25 mg tablet 25 mg PO DAILY Qty: 90 RF: 3 psyllium husk [Metamucil] 0.4 gram capsule 0.4 gm PO PRN PRNRF: 0 econazole 1 % cream 1 applic TP BID RF: 0 lisinopril 40 mg tablet 20 mg PO DAILY RF: 0 cetirizine 10 mg tablet 5 mg PO DAILY PRNRF: 0 atropine 1 % drops 1 - 4 drp sublingual QID PRN (Reason: secretions) Qty: 15 RF: 2 Enbrel 50 MG/1 ML syringe 50 mg SQ 1x/wk RF: 0 fluocinonide 120 GM cream 120 gm Topical PRN RF: 0 Benedict-Mag 1 EACH tablet,chewable 1 ea PO DAILY RF: 0 cholecalciferol (vitamin D3) [Vitamin D3] 2,000 UNIT capsule 1,000 unit PO DAILY RF: 0 nystatin 100,000 unit/gram powder 1 applic TP BID PRN (Reason: inguinal rash) Qty: 30 RF: 1 methotrexate sodium 2.5 mg tablet 5 mg PO QWEEK Qty: 24 RF: 3 simvastatin 10 mg tablet 10 mg PO QPM Qty: 90 RF: 3 trazodone 50 mg tablet 50 - 100 mg PO HS Qty: 180 RF: 2 famotidine 40 mg tablet 40 mg PO QHS Qty: 90 RF: 3 carbidopa-levodopa 25-100 mg tablet 1 tab PO TID Qty: 270 RF: 3 Discharge Instructions Additional Instructions: Follow up with your primary care provider within 1-2 weeks if you feel more ill or have fevers return to the emergency department Medical Decision Making 79 yo male with hx of parkinson's, recent visual hallucinations, who comes in after an episode where he was disoriented and arrives caox4 with no focal deficits or complaints. He denies fevers, chills, chest pain or abdominal pain and no focal deficits. He decclined to have any blood work or imaging done and requested to go home during the middle of the history and physical so this was not completed fully. HE has capacity to make his own decisions and understands risks of leaving without full h and p and workup of labs/imaging including and permanent disability and is willing to take these risks. HE understands he can always return if he changes his mind Differential Diagnosis Differential Diagnosis: dehydration, electrolyte abnormality, anemia HPI General Mode of arrival: EMS. Date/Time Provider Initiated Documentation: 03/31/19 21:25. Limitations to Documentation: no limitations. Information obtained by: patient. History of Present Illness 79 year old M presents to the emergency department with the chief complaint of disoriented, Patient started experiencing this hour(s) (1) and it has been now resolved. No relieving factors improve symptom(s), No exacerbating factors reported . Patient did receive the following treatments prior to arrival, none Related Data Home Medications Medication Instructions Recorded Confirmed Enbrel 50 mg SQ 1x/wk 12/04/13 03/31/19 fluocinonide 120 gm TOPICAL PRN 12/04/13 03/31/19 Benedict-Mag 1 ea PO DAILY tab.chew 10/30/14 03/31/19 cholecalciferol (vitamin D3) 1,000 unit PO DAILY 06/30/16 03/31/19 [Vitamin D3] amoxicillin 500 mg capsule 2 gm PO ONCE PRN cap 12/24/17 03/31/19 cyanocobalamin (vitamin B-12) 1,000 mcg PO DAILY 12/24/17 03/31/19 1,000 mcg tablet ibuprofen 200 mg tablet 200 - 800 mg PO HS PRN tab 12/24/17 03/31/19 loperamide 2 mg capsule 2 mg PO DAILY PRN cap 12/24/17 03/31/19 omega-3 fatty acids 1,000 mg 1,000 mg PO DAILY 12/24/17 03/31/19 capsule ascorbic acid (vitamin C) 500 mg 500 mg PO .4 DAYS A WEEK tab 04/04/18 03/31/19 tablet zinc 50 mg tablet 50 mg PO .3 DAYS A WEEK tab 04/04/18 03/31/19 nystatin 100,000 unit/gram topical 1 applic TP BID PRN #30 gm 05/10/18 03/31/19 powder econazole 1 % topical cream 1 applic TP BID 10/12/18 03/31/19 folic acid 1 mg tablet 1 mg PO DAILY tab 10/12/18 03/31/19 psyllium husk 0.4 gram capsule 0.4 gm PO PRN PRN cap 10/12/18 03/31/19 methotrexate sodium 2.5 mg tablet 5 mg PO QWEEK #24 tab 11/14/18 03/31/19 simvastatin 10 mg tablet 10 mg PO QPM #90 tab 11/14/18 03/31/19 trazodone 50 mg tablet 50 - 100 mg PO HS #180 tab 11/15/18 03/31/19 cetirizine 10 mg tablet 5 mg PO DAILY PRN 01/23/19 03/31/19 lisinopril 40 mg tablet 20 mg PO DAILY tab-cap 01/23/19 03/31/19 misoprostol 100 mcg tablet 100 mcg PO QAM #90 tab 01/24/19 03/31/19 sertraline 25 mg tablet 25 mg PO DAILY #90 tab 01/24/19 03/31/19 sertraline 50 mg tablet 50 mg PO DAILY #90 tab 01/24/19 03/22/19 famotidine 40 mg tablet 40 mg PO QHS #90 tab 02/13/19 03/31/19 carbidopa 25 mg-levodopa 100 mg 1 tab PO TID #270 tab 02/23/19 03/31/19 tablet atropine 1 % eye drops 1 - 4 drp SUBLINGUAL QID PRN #15 ml 03/22/19 03/31/19 Previous Rx's Medication Instructions Recorded nystatin 100,000 unit/gram topical 1 applic TP BID PRN #30 gm 05/10/18 powder methotrexate sodium 2.5 mg tablet 5 mg PO QWEEK #24 tab 11/14/18 simvastatin 10 mg tablet 10 mg PO QPM #90 tab 11/14/18 trazodone 50 mg tablet 50 - 100 mg PO HS #180 tab 11/15/18 misoprostol 100 mcg tablet 100 mcg PO QAM #90 tab 01/24/19 sertraline 25 mg tablet 25 mg PO DAILY #90 tab 01/24/19 sertraline 50 mg tablet 50 mg PO DAILY #90 tab 01/24/19 famotidine 40 mg tablet 40 mg PO QHS #90 tab 02/13/19 carbidopa 25 mg-levodopa 100 mg 1 tab PO TID #270 tab 02/23/19 tablet atropine 1 % eye drops 1 - 4 drp SUBLINGUAL QID PRN #15 ml 03/22/19 Allergies Allergy/AdvReac Type Severity Reaction Status Date / Time POLLEN Allergy Unknown Uncoded 03/22/19 15:34 dust AdvReac Unknown PND, RUNNY Uncoded 03/22/19 15:34 NOSE General Stated Complaint: AMS/LOC ELAINE: 3 Review of Systems All systems reviewed & are unremarkable except as noted in HPI and below Constitutional Constitutional: Denies chills and Denies fever(s) ENT Ears, Nose, Mouth, and Throat: Denies change in voice Cardiovascular Cardiovascular: Denies chest pain and Denies dyspnea Respiratory Respiratory: Denies cough and Denies dyspnea Gastrointestinal Gastrointestinal: Denies abdominal pain, Denies nausea and Denies vomiting Genitourinary Genitourinary: Denies dysuria Musculoskeletal Musculoskeletal: Denies joint swelling Integumentary/Breasts Skin/Breast: Denies rash Psychiatric Psychiatric: Denies depression Endocrine Endocrine: Denies cold intolerance and Denies heat intolerance Allergic/Immunologic Allergic/Immunologic: Denies urticaria [facility] Social History Smoking/Tobacco Use Status: Never Alcohol Intake: current Alcohol Intake frequency: 0-2 drinks per day Substance use type: does not use Duration: 15-30 minutes/day Frequency: 3-4 times per week Seatbelt use: always Do you feel safe at home: Yes Do you feel safe in your relationship?: Yes Exam Const General: no acute distress Orientation: alert HENMT Head: normal to inspection Ears: external ears normal General nose exam: external nose normal Mouth: moist mucous membranes Eyes General: appearance normal, both eyes and all related structures Neck Neck: normal visual inspection Resp Effort & Inspection: normal respiratory effort and able to speak in complete sentences Cardio Rate: regular rate Skin General skin exam: no rashes or lesions noted Neuro General: alert and oriented x3 Extrem General: normal to inspection Psych Mental Status: mental status grossly normal Course Vital Signs Vital signs: Vital Signs Temperature 37.4 C 03/31/19 21:15 Pulse 82 03/31/19 21:15 Respiratory Rate 16 03/31/19 21:15 Blood Pressure 122/59 L 03/31/19 21:15 Pulse Oximetry 99 03/31/19 21:15 Temperature 37.4 C 03/31/19 21:15 Temperature Source Skin 03/31/19 21:15 Pulse 82 03/31/19 21:15 Respiratory Rate 16 03/31/19 21:20 Respiratory Effort 03/31/19 21:20 Respiratory Depth Normal 03/31/19 21:20 Respiratory Pattern Normal 03/31/19 21:20 Blood Pressure 122/59 L 03/31/19 21:15 Blood Pressure Position Supine 03/31/19 21:15 Pulse Oximetry 99 03/31/19 21:15 Oxygen Delivery Method Room Air 03/31/19 21:15 Oxygen Flow Rate 0 03/31/19 21:15 Pain Level 0 03/31/19 21:15
--- NOTE | 2019-03-31 21:37 | NUR.NOTE ---
Arrives via [place] from home with c/o AMS. Pt was sent in by day public health officer for episode of confusion. Pt arrives A&Ox4. Denies any C/O. Denies CP, SOB, abd pain, N/V/D, VILLAFANA, confusion. Pt able to recall all medications. MD Blanchard in to eval, pt declined workup.
--- NOTE | 2019-03-31 22:00 | NUR.NOTE ---
Discharge instructions reviewed with verbal understanding. aware to f/u with pcp as needed. to exit via [place].
== END 2019-03-31 21:50 | disposition home or self-care (01) ==
LOC: ER 21:56
PROVIDERS: Emergency Provider Emergency Medicine; PCP Family Medicine
DX: R41.0 Disorientation, unspecified (principal); Z53.29 Procedure and treatment not carried out because of patient's decision for other reasons; G20 Parkinson's disease
CPT/HCPCS: 80053; 99282; 80320; 82140; 83735; 84443; 85025

== ENCOUNTER → 2019-04-05 10:09 | Outpatient (BNVA) | payer MEDICARE, BC, SELFPAY | PROVIDERS: PCP Family Medicine; Referring Provider Family Medicine; Visit Provider Psychiatry & Neurology Neurology | DX: G20 Parkinson's disease (principal); R13.10 Dysphagia, unspecified; K11.7 Disturbances of salivary secretion; G24.01 Drug induced subacute dyskinesia | CPT/HCPCS: 99214 ==

== ENCOUNTER → 2019-06-26 13:47 | Outpatient (BNVA) | payer MEDICARE, BC, SELFPAY | PROVIDERS: PCP Family Medicine; Referring Provider Family Medicine; Visit Provider Psychiatry & Neurology Neurology | DX: K11.7 Disturbances of salivary secretion (principal); G20 Parkinson's disease; R13.10 Dysphagia, unspecified; N32.81 Overactive bladder | CPT/HCPCS: 99214 ==

== ENCOUNTER → 2019-07-25 07:37 | Outpatient (BNVA) | payer MEDICARE, BC, SELFPAY | PROVIDERS: PCP Family Medicine; Referring Provider Family Medicine; Visit Provider Psychiatry & Neurology Neurology | DX: G20 Parkinson's disease (principal); K11.7 Disturbances of salivary secretion; R13.10 Dysphagia, unspecified; K59.00 Constipation, unspecified; N32.81 Overactive bladder; I10 Essential (primary) hypertension | CPT/HCPCS: 99213; 99442 ==

== ENCOUNTER 2019-09-21 04:15 | Outpatient (CLI) | payer MEDICARE, BC, SELFPAY ==
[2019-09-21 12:23] LABS: Abs Immature Grans 0.02 k/cumm (0.0-0.09); Absolute Basophil Count 0.01 k/cumm (0.0-0.2); Absolute Eosinophil Count 0.17 k/cumm (0.0-0.7); Absolute Lymphocyte Count 1.62 k/cumm (1.2-3.4); Absolute Monocyte Count 0.39 k/cumm (0.11-0.7); Absolute Neutrophil Count 2.28 k/cumm (1.2-6.7); Basophils % 0.2; Eosinophils % 3.8; HCT 33.1 % (40.0-50.0); Immature Grans % 0.4 %; Lymphocytes % 36.1; Mean Corp. HGB Concentration 33.2 g/dL (32.0-36.0); Mean Corpuscular Hemoglobin 33.4 pg (27.0-33.0); Mean Corpuscular Volume 100.6 fL (80-95); Mean Platelet Volume 9.7 fL (8.0-11.0); Monocytes % 8.7; Neutrophils % 50.8; Platelet Count 169 x1000/uL (130-400); RBC 3.29 m/cumm (4.50-6.00); RBC Distribution Width 13.5 % (11.8-14.1); White Blood Cell Count 4.49 k/cumm (4.4-10.8)
[2019-09-21 12:49] LABS: ALT 15 U/L (16-63); AST 27 U/L (15-37); Albumin 3.8 g/dL (3.4-5.0); Alkaline Phosphatase 57 U/L (46-116); Anion Gap 5.1 mmol/L (3-11); BUN 47 mg/dL (7-18); Bilirubin, Total 0.4 mg/dL (0.2-1.0); CO2 27.9 mmol/L (21.0-32.0); CREATININE 1.26 mg/dL (0.70-1.30); Calcium 9.3 mg/dL (8.5-10.1); Chloride 104 mmol/L (98-107); Estimated GFR 55.49 (mL/min/1.73m2); Glucose 97 mg/dL (74-106); Potassium 5.3 mmol/L (3.5-5.1); Sodium 137 mmol/L (136-145); Total Protein 7.2 g/dL (6.4-8.2)
[2019-09-21 12:51] LABS: C-Reactive Protein < 0.05 mg/dL (0.0-0.3)
[2019-09-22 09:34] LABS: PSA, Diagnostic 3.7 ng/mL (0.0-6.5)
== END 2019-09-21 04:35 ==
PROVIDERS: PCP Family Medicine; Visit Provider Nurse Practitioner Family
DX: C61 Malignant neoplasm of prostate (principal); M06.9 Rheumatoid arthritis, unspecified; Z79.899 Other long term (current) drug therapy
CPT/HCPCS: 36415; 80053; 84153; 85025; 86140

== ENCOUNTER → 2019-09-25 07:43 | Outpatient (BNVA) | payer MEDICARE, BC, SELFPAY | PROVIDERS: PCP Family Medicine; Referring Provider Family Medicine; Visit Provider Psychiatry & Neurology Neurology | DX: G20 Parkinson's disease (principal); K11.7 Disturbances of salivary secretion; R13.10 Dysphagia, unspecified; K59.00 Constipation, unspecified; N32.81 Overactive bladder | CPT/HCPCS: 99214; 99442 ==

== ENCOUNTER → 2019-10-26 14:06 | Outpatient (BNVA) | payer MEDICARE, BC, SELFPAY | PROVIDERS: PCP Family Medicine; Referring Provider Family Medicine; Visit Provider Psychiatry & Neurology Neurology | DX: G20 Parkinson's disease (principal); K11.7 Disturbances of salivary secretion; K59.00 Constipation, unspecified; N32.81 Overactive bladder; R13.10 Dysphagia, unspecified; I10 Essential (primary) hypertension | CPT/HCPCS: 99214 ==

== ENCOUNTER 2019-11-23 02:32 | Outpatient (CLI) | payer MEDICARE, BC, SELFPAY ==
[2019-11-23 13:07] LABS: Abs Immature Grans 0.01 10^3/uL (0.0-0.06); Absolute Basophil Count 0.02 10^3/uL (0.0-0.2); Absolute Eosinophil Count 0.13 10^3/uL (0.0-0.7); Absolute Lymphocyte Count 1.42 10^3/uL (1.2-3.4); Absolute Neutrophil Count 2.17 10^3/uL (1.2-6.7); Basophils % 0.5; Eosinophils % 3.1; HCT 34.7 % (40.0-50.0); HGB 11.2 g/dL (13.5-17.5); Immature Grans % 0.2; Lymphocytes % 34.2; MCH 32.8 pg (27.0-33.0); MCHC 32.3 % (32.0-36.0); MCV 101.8 fL (80-95); Monocytes % 9.6; Neutrophils % 52.4; Nucleated RBC 0 %; Platelet Count 190 10^3/uL (130-400); RBC 3.41 10^6/uL (4.36-5.78); RDW 13.5 % (11.8-14.1); RDW-SD 50.5 fL; WBC 4.15 10^3/uL (4.4-10.8)
[2019-11-23 13:26] LABS: ALT 17 U/L (16-63); AST 19 U/L (15-37); Alkaline Phosphatase 57 U/L (46-116); Anion Gap 7.6 mmol/L (3-11); BUN 43 mg/dL (7-18); Bilirubin, Total 0.3 mg/dL (0.2-1.0); CO2 27.4 mmol/L (21.0-32.0); CREATININE 1.15 mg/dL (0.70-1.30); Calcium 9.7 mg/dL (8.5-10.1); Chloride 107 mmol/L (98-107); Glucose 101 mg/dL (74-106); Potassium 5.1 mmol/L (3.5-5.1); Sodium 142 mmol/L (136-145); Total Protein 7.2 g/dL (6.4-8.2)
[2019-11-23 13:36] LABS: C-Reactive Protein 0.28 mg/dL (0.0-0.3)
== END 2019-11-23 02:52 ==
PROVIDERS: PCP Family Medicine; Visit Provider Internal Medicine Rheumatology
DX: M06.9 Rheumatoid arthritis, unspecified (principal); Z79.899 Other long term (current) drug therapy
CPT/HCPCS: 36415; 80053; 85025; 86140

== ENCOUNTER → 2020-01-02 11:07 | Outpatient (BNVA) | payer MEDICARE, BC, SELFPAY | PROVIDERS: PCP Family Medicine; Referring Provider Family Medicine; Visit Provider Psychiatry & Neurology Neurology | DX: G20 Parkinson's disease (principal); K11.7 Disturbances of salivary secretion; K59.00 Constipation, unspecified; N32.81 Overactive bladder; R13.10 Dysphagia, unspecified; I10 Essential (primary) hypertension | CPT/HCPCS: 99215 ==

== ENCOUNTER 2020-01-14 11:57 | Emergency (ER) | payer MEDICARE, BC, SELFPAY ==
[2020-01-14 12:03] VITALS: BP 152/67; PULSE 78; RESP 20; TEMP 36.8; O2SAT 97
--- NOTE | 2020-01-14 12:17 | ED.GENADUL_ITS ---
Discharge Plan Disposition Patient Disposition: HOME Condition: Improving Discharge Details Clinical Impression: Hematuria Primary Care Provider: Willie Hodges ED Provider: Marlon Haro Home Meds and New Rx's Prescriptions: New cephalexin 500 mg capsule 500 mg PO TID 5 Days Qty: 15 RF: 0 Continued cyanocobalamin (vitamin B-12) 1,000 mcg tablet 1,000 mcg PO DAILY RF: 0 omega-3 fatty acids [Fish Oil Concentrate] 1,000 mg capsule 1,000 mg PO DAILY RF: 0 loperamide [Anti-Diarrheal (loperamide)] 2 mg capsule 2 mg PO DAILY PRN RF: 0 folic acid 1 mg tablet 1 mg PO DAILY RF: 0 ascorbic acid (vitamin C) 500 mg tablet 500 mg PO .4 DAYS A WEEK RF: 0 zinc 50 mg tablet 50 mg PO .3 DAYS A WEEK RF: 0 misoprostol 100 mcg tablet 100 mcg PO QAM Qty: 90 RF: 3 carbidopa-levodopa 25-100 mg tablet 1 tab PO DIRECTED Qty: 360 RF: 3 sertraline 50 mg tablet 50 mg PO DAILY Qty: 90 RF: 3 sertraline 25 mg tablet 25 mg PO DAILY Qty: 90 RF: 3 psyllium husk [Metamucil] 0.4 gram capsule 0.4 gm PO PRN PRNRF: 0 econazole 1 % cream 1 applic TP BID RF: 0 lisinopril 40 mg tablet 20 mg PO DAILY RF: 0 Hold Instructions: Home Medication placed on hold at Doctor's office cetirizine 10 mg tablet 5 mg PO DAILY PRNRF: 0 trazodone 50 mg tablet 50 - 100 mg PO HS Qty: 180 RF: 3 methotrexate sodium 2.5 mg tablet 5 mg PO QWEEK Qty: 24 RF: 3 simvastatin 10 mg tablet 10 mg PO QPM Qty: 90 RF: 3 Enbrel 50 MG/1 ML syringe 50 mg SQ 1x/wk RF: 0 fluocinonide 120 GM cream 120 gm Topical PRN RF: 0 Benedict-Mag 1 EACH tablet,chewable 1 ea PO DAILY RF: 0 cholecalciferol (vitamin D3) [Vitamin D3] 2,000 UNIT capsule 1,000 unit PO DAILY RF: 0 ibuprofen 200 mg capsule 200 mg PO HS RF: 0 No Action amoxicillin 500 mg capsule 2 gm PO ONCE PRN (Reason: TAKE 1 HOUR PRIOR TO DENTAL WORK) RF: 0 Discharge Instructions Instructions: Hematuria (ED) Additional Instructions: We will ask our care management team to arrange a follow-up for you in urology clinic. With the bloody urine you are having is not dangerous in and of itself. It may be due to developing infection for which we will place you on antibiotics. If you develop inability to urinate with bloating of the abdomen and pain, please return for reevaluation. Return for any other acute concerns. Continue your regularly prescribed medications. Medical Decision Making 79-year-old male presents from home with urinary urgency and hematuria last night. No fever, no significant pain. 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 She is also status post transurethral resection of the prostate for prostate cancer. He is afebrile and well-appearing. Differential diagnosis includes UTI, cystitis, mass. IV access was established, patient given maintenance fluids, referred for laboratory testing with urinalysis as well as CT urogram. Labs noted a white count of 6, matted 34, platelets 150. Chemistries notable for BUN 34, creatinine 1.2. Urine with large blood, negative leuk esterase and negative nitrites. CT images: Bilateral extrarenal pelves. No evidence of renal cortical mass. Subtle wall thickening of the urothelium. Mild bladder wall thickening present. See formal report. Consistent with painless hematuria, may be developing cystitis and therefore he will merit a trial of 5 days of Keflex. Given the history of prostate cancer we will refer to urology for outpatient follow-up. CT images did not show a large clot present. Patient does understand indications seek return including inability to urinate. HPI General Mode of arrival: ambulatory . Date/Time Provider Initiated Documentation: 01/14/20 11:59 . Limitations to Documentation: no limitations . Information obtained by: patient . History of Present Illness 79 year old M presents to the emergency department with the chief complaint of Bloody urine at home, described as mild, and is localized to the pelvis. Patient reports no radiation. Patient started experiencing this hour(s) and it has been intermittent. No relieving factors improve symptom(s), No exacerbating factors reported . Patient notes denies fever/chills and nausea/vomiting. Patient did receive the following treatments prior to arrival, none Related Data Home Medications Medication Instructions Recorded Confirmed Enbrel 50 mg SQ 1x/wk 12/04/13 01/14/20 fluocinonide 120 gm TOPICAL PRN 12/04/13 01/14/20 Benedict-Mag 1 ea PO DAILY tab.chew 10/30/14 01/14/20 cholecalciferol (vitamin D3) 1,000 unit PO DAILY 06/30/16 01/14/20 [Vitamin D3] amoxicillin 500 mg capsule 2 gm PO ONCE PRN cap 12/24/17 01/14/20 cyanocobalamin (vitamin B-12) 1,000 mcg PO DAILY 12/24/17 01/14/20 1,000 mcg tablet loperamide 2 mg capsule 2 mg PO DAILY PRN cap 12/24/17 01/14/20 omega-3 fatty acids 1,000 mg 1,000 mg PO DAILY 12/24/17 01/14/20 capsule ascorbic acid (vitamin C) 500 mg 500 mg PO .4 DAYS A WEEK tab 04/04/18 01/14/20 tablet zinc 50 mg tablet 50 mg PO .3 DAYS A WEEK tab 04/04/18 01/14/20 econazole 1 % topical cream 1 applic TP BID 10/12/18 01/14/20 folic acid 1 mg tablet 1 mg PO DAILY tab 10/12/18 01/14/20 psyllium husk 0.4 gram capsule 0.4 gm PO PRN PRN cap 10/12/18 01/14/20 cetirizine 10 mg tablet 5 mg PO DAILY PRN 01/23/19 01/14/20 lisinopril 40 mg tablet 20 mg PO DAILY tab-cap 01/23/19 01/14/20 misoprostol 100 mcg tablet 100 mcg PO QAM #90 tab 01/24/19 01/14/20 carbidopa 25 mg-levodopa 100 mg 1 tab PO DIRECTED #360 tab 06/26/19 01/14/20 tablet methotrexate sodium 2.5 mg tablet 5 mg PO QWEEK #24 tab 09/12/19 01/14/20 simvastatin 10 mg tablet 10 mg PO QPM #90 tab 09/12/19 01/14/20 trazodone 50 mg tablet 50 - 100 mg PO HS #180 tab 09/12/19 01/14/20 ibuprofen 200 mg capsule 200 mg PO HS cap 12/12/19 01/14/20 sertraline 25 mg tablet 25 mg PO DAILY #90 tab 12/12/19 01/14/20 sertraline 50 mg tablet 50 mg PO DAILY #90 tab 12/12/19 01/14/20 cephalexin 500 mg PO TID 5 Days #15 cap 01/14/20 Previous Rx's Medication Instructions Recorded misoprostol 100 mcg tablet 100 mcg PO QAM #90 tab 01/24/19 carbidopa 25 mg-levodopa 100 mg 1 tab PO DIRECTED #360 tab 06/26/19 tablet methotrexate sodium 2.5 mg tablet 5 mg PO QWEEK #24 tab 09/12/19 simvastatin 10 mg tablet 10 mg PO QPM #90 tab 09/12/19 trazodone 50 mg tablet 50 - 100 mg PO HS #180 tab 09/12/19 sertraline 25 mg tablet 25 mg PO DAILY #90 tab 12/12/19 sertraline 50 mg tablet 50 mg PO DAILY #90 tab 12/12/19 cephalexin 500 mg PO TID 5 Days #15 cap 01/14/20 Allergies Allergy/AdvReac Type Severity Reaction Status Date / Time POLLEN Allergy Unknown Uncoded 01/14/20 12:15 dust AdvReac Unknown PND, RUNNY Uncoded 01/14/20 12:15 NOSE General Stated Complaint: Urinary ELAINE: 3 Review of Systems Narrative: 6 systems reviewed and otherwise negative [facility] Medical History Bilateral chronic knee pain Carpal tunnel syndrome on both sides based on sx; rheum recommends no surgery Cubital tunnel syndrome on left based on sx; no surgery per rheum 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 Hyperlipidemia Hypertension Insomnia Ocular hemorrhage Osteoarthritis of knee (10/01/14) Overactive bladder Parkinsonism 10/29/14; [facility] ([facility]) Prostate cancer RA (rheumatoid arthritis) Retinal detachment multiple, bilateral Sialorrhea 10/29/14; [facility]; ([facility]) Spinal stenosis lumbar with h/o radiculopathy Surgical History History of cataract removal with insertion of prosthetic lens LEFT REMOVAL; LEFT RETINAL BUCKLE W/VITRIECTOMY; RIGHT RETINAL DETACHMENT W/VITRIECTOMY; YAG LASER TX CLOUDED LENS History of spinal surgery Lumbar 2013 Status post carpal tunnel release LEFT Status post foot surgery Status post hip replacement RIGHT Status post prostatectomy Status post total knee replacement Bilateral Status post transurethral resection of prostate Family History Mother Essential hypertension Parkinson disease Father Personal history of malignant neoplasm PANCREATIC Heart disease CAD Parkinson disease Grandfather Personal history of malignant neoplasm LEUKEMIA Grandfather , UNKNOWN No problems noted. Grandmother No problems noted. Grandmother Essential hypertension Stroke Social History Smoking/Tobacco Use Status: Never Alcohol Intake: current Alcohol Intake frequency: 0-2 drinks per day Substance use type: does not use Duration: 15-30 minutes/day Frequency: 3-4 times per week Seatbelt use: always Do you feel safe at home: Yes Do you feel safe in your relationship?: Yes Exam Narrative Exam Narrative: GEN: awake, alert, oriented 3. Pleasant, well groomed, interactive. HEAD: Normocephalic, atraumatic ENT: Mucous membranes moist, oropharynx unremarkable, External ear exam unremarkable EYES: PERRL, EOMI NECK: Full ROM, no TAMARA, no menigismus CHEST/RESP: Nontender, clear to auscultation bilateral, no wheeze/rhonchi/rales CARDIOVASCULAR: RRR, no murmur, rub angel. 2+ Rad pulse bilateral ABDOMEN: Soft, nontender, no mass. +Bowel sounds. No flank tenderness. EXT: Full ROM, no edema, no rash Neuro: Grossly normal neurologic exam, conversant, interactive. Psych: Speech fluent, thoughts congruent, affect normal Course Vital Signs Vital signs: Vital Signs Temperature 36.8 C 01/14/20 12:03 Pulse 78 01/14/20 12:03 Respiratory Rate 20 01/14/20 12:03 Blood Pressure 152/67 H 01/14/20 12:03 Pulse Oximetry 97 01/14/20 12:03 Temperature 36.8 C 01/14/20 12:03 Temperature Source Skin 01/14/20 12:03 Pulse 78 01/14/20 12:03 Respiratory Rate 20 01/14/20 12:03 Respiratory Effort Non-Labored 01/14/20 12:14 Blood Pressure 152/67 H 01/14/20 12:03 Blood Pressure Position Sitting 01/14/20 12:03 Pulse Oximetry 97 01/14/20 12:03 Oxygen Delivery Method Room Air 01/14/20 12:03 Oxygen Flow Rate 0 01/14/20 12:03
[2020-01-14 12:18] LABS: Bilirubin Negative (Negative); Blood Large (Negative); Clarity Cloudy (Clear); Glucose Negative (Negative); Ketones Negative (Negative); Leukocyte Esterase Negative (Negative); Nitrite Negative (Negative); Specific Gravity 1.015 (1.005-1.025); Urobilinogen 0.2 EU/dL (Up TO 0.2); pH 6.5 (5-8)
[2020-01-14 12:32] LABS: RBC >50 HPF (0-2)
[2020-01-14 12:33] LABS: C & S Indicated? No
[2020-01-14] MEDS: Normal Saline Flush 10 ML SYR IVP (13:08)
[2020-01-14] MEDS: Normal Saline 1,000 ML 75 ML IV (13:08)
[2020-01-14 13:12] LABS: Abs Immature Grans 0.02 10^3/uL (0.0-0.06); Absolute Basophil Count 0.02 10^3/uL (0.0-0.2); Absolute Eosinophil Count 0.03 10^3/uL (0.0-0.7); Absolute Lymphocyte Count 1.18 10^3/uL (1.2-3.4); Absolute Monocyte Count 0.47 10^3/uL (0.1-0.8); Absolute Neutrophil Count 4.37 10^3/uL (1.2-6.7); Basophils % 0.3; Eosinophils % 0.5; HCT 33.9 % (40.0-50.0); HGB 11.1 g/dL (13.5-17.5); Immature Grans % 0.3; Lymphocytes % 19.4; MCH 33.8 pg (27.0-33.0); MCHC 32.7 % (32.0-36.0); MCV 103.4 fL (80-95); MPV 9.4 fL (8.0-11.0); Monocytes % 7.7; Neutrophils % 71.8; Nucleated RBC 0 %; Platelet Count 150 10^3/uL (130-400); RBC 3.28 10^6/uL (4.36-5.78); RDW 13.9 % (11.8-14.1); RDW-SD 52.8 fL; WBC 6.09 10^3/uL (4.4-10.8)
[2020-01-14 13:21] LABS: ALT 11 U/L (16-63); AST 27 U/L (15-37); Albumin 3.6 g/dL (3.4-5.0); Alkaline Phosphatase 55 U/L (46-116); BUN 34 mg/dL (7-18); Bilirubin, Total 0.4 mg/dL (0.2-1.0); CREATININE 1.21 mg/dL (0.70-1.30); Calcium 9.2 mg/dL (8.5-10.1); Chloride 104 mmol/L (98-107); Estimated GFR 58.15 (mL/min/1.73m2); Glucose 111 mg/dL (74-106); Potassium 4.7 mmol/L (3.5-5.1); Sodium 138 mmol/L (136-145); Total Protein 6.8 g/dL (6.4-8.2)
[2020-01-14] MEDS: Normal Saline - Diluent 50 ML VIAL IV ×3 (13:41→13:43)
[2020-01-14] MEDS: Omnipaque 350 MG/ML 100 ML BTL IJ (13:43)
--- NOTE | 2020-01-14 13:44 | DI.CT_ITS ---
EXAM: CT ABDOMEN PELVIS WO/W REASON FOR EXAM: PAINLESS HEMATURIA TECHNIQUE: Imaging Protocol: Axial computed tomography images with coronal and sagittal reformatted images were created and reviewed CONTRAST MATERIAL: Intravenous: Omnipaque 350 Contrast volume:100 ml Contrast route:IV - Oral:/ no FINDINGS: ABDOMEN: Lung Bases: Normal where visualized. Liver: Normal density. No measurable mass. Gallbladder and biliary tract: No radiodense calculus or dilation. Pancreas: Normal density, no abnormal calcifications or inflammatory process. Spleen: Normal. Kidneys: No radiodense stones or obstructive uropathy. No masses seen. There is a prominent right ext rarenal pelvis. A small left extrarenal pelvis is present. There is mild bilateral hydronephrosis. This appears increased when compared with the previous exam. There are symmetric nephrogram and dionte logram. There is a question of mild urothelial enhancement. Adrenal glands: No masses seen. Lymph nodes: Within normal limits. Abdominal Aorta: Abdominal portion non-dilated. PELVIS: Bladder: Distended. No stones, mass or wall thickening. Bowel: No obstruction or bowel wall thickening. Peritoneal cavity: No ascites, collection or mesenteric inflammatory response. Bones: There are degenerative disc changes and scoliosis. Right hip prosthesis. Reproductive organs: Status post prostatectomy. IMPRESSION: Mild bilateral hydronephrosis and bilateral extrarenal pelves. No evidence of a mass or stone. Ques tion of mild urothelial enhancement. RADIATION DOSE DELIVERED: 2,080.54mGy.cm Total DLP DATA REPOSITORY: All CT scans at this facility are submitted to the National Radiology Data Registry (NRDR) Dose Index Registry (DIR) with the [employer] (A[employer]). RADIATION OPTIMIZATION: All CT scans at this facility use at least one of these dose optimization te chniques: automated exposure control; mA and/or kV adjustment per patient size (includes targeted exa ms where dose is matched to clinical indication); or iterative reconstruction.
--- NOTE | 2020-01-14 14:18 | DI.VRAD_ITS ---
PROCEDURE INFORMATION: Exam: CT Abdomen And Pelvis Without And With Contrast Exam date and time: 01/14/2020 1:43 PM Age: 79 years old Clinical indication: Other: Painless hematuria; Patient HX: HX prostate CA TECHNIQUE: Imaging protocol: Computed tomography of the abdomen and pelvis without and with intravenous contrast. Contrast material: OMNIPAQUE 350; Contrast volume: 100 ml; Contrast route: INTRAVENOUS (IV); COMPARISON: CT ABD PELVIS WITH CONTRAST 07/26/2017 10:23 AM FINDINGS: Lungs: No significant airspace consolidation is identified at the lung bases. Pleural effusion is not seen. Liver: The liver is not significantly enlarged. No new intrahepatic abnormality is identified. Gallbladder and bile ducts: The gallbladder is contracted. No calcified gallstones are identified. There is no evidence of biliary ductal dilatation Pancreas: Pancreas is unremarkable Spleen: Spleen is unremarkable Adrenals: Adrenals are unremarkable. Kidneys and ureters: No definite radiopaque urinary tract calculi are identified. There are bilateral extrarenal pelves . There is mild caliectasis, mild hydroureteronephrosis, increased when compared with the patient's prior exam. There is subtle wall thickening/enhancement of the urothelium in the ureters bilaterally. There is no evidence of an enhancing or solid renal cortical mass. Stomach and bowel: Bowel is noted anterior to the liver. Evaluation of the bowel is limited without oral contrast but there is no evidence of bowel obstruction, mass or pneumatosis. Appendix: There are no findings to suggest acute appendicitis Intraperitoneal space: No free fluid focal collections or free air Vasculature: Vascular calcification is noted within the abdomen, pelvis. The aorta is nonaneurysmal Lymph nodes: No significantly enlarged mesenteric or retroperitoneal nodes are identified. Urinary bladder: There is mild bladder wall thickening which is subtle. No bladder calculi are identified. Reproductive: Patient has had apparent prior prostatectomy. Bones/joints: There is a right hip replacement with metallic artifact which somewhat limits evaluation of the pelvis. There is a levoconvex lumbar scoliosis, there is multilevel disc space narrowing. There is multilevel vacuum phenomena. There are disc bulges spondylitic changes of the endplates and facet arthropathy. There is narrowing of the canal/stenosis present at multiple levels, this appears most prominent at L4-L5, L5-S1. There is multilevel foraminal stenosis. No definite acute or destructive bony abnormality is identified. Soft tissues: Subcutaneous soft tissues are unremarkable There is a small fat containing right inguinal hernia the IMPRESSION: 1. Bilateral extrarenal pelves. There is mild caliectasis and mild bilateral hydroureteronephrosis new/increased when compared with 2018. There is no evidence of a discrete renal cortical mass, there is subtle wall thickening/enhancement of the urothelium particularly seen in both ureters, there is mild bladder wall thickening as well. Findings are nonspecific and may be related to inflammation/urinary tract infection but subtle neoplastic disease could have a similar appearance and clinical correlation recommended. 2. Levoconvex lumbar scoliosis. Advanced lumba the r spondylosis, disc disease with multilevel spinal, foraminal stenosis. Dictated and Authenticated by: Ngoc Clinton MD. Ordering:LANEY Mason MD
--- NOTE | 2020-01-14 14:28 | NUR.NOTE ---
Referral faxed to [facility].Nursing Note:
[2020-01-14 14:45] VITALS: BP 150/71; PULSE 78; RESP 18; TEMP 37; O2SAT 96
== END 2020-01-14 13:01 | disposition home or self-care (01) ==
PROVIDERS: Emergency Provider Emergency Medicine; PCP Family Medicine
DX: R31.0 Gross hematuria (principal); R39.15 Urgency of urination; I10 Essential (primary) hypertension; G20 Parkinson's disease
CPT/HCPCS: 36415; 80053; 99285; 74178; 81003; 81015; 85025; 99284; J3490

== ENCOUNTER → 2020-03-04 10:15 | Outpatient (BNVA) | payer MEDICARE, BC, SELFPAY | PROVIDERS: PCP Family Medicine; Referring Provider Family Medicine; Visit Provider Psychiatry & Neurology Neurology | DX: G20 Parkinson's disease (principal); K11.7 Disturbances of salivary secretion; K59.00 Constipation, unspecified; N32.81 Overactive bladder; R13.10 Dysphagia, unspecified; R31.9 Hematuria, unspecified | CPT/HCPCS: 99213; 99442 ==

== ENCOUNTER 2020-03-20 03:26 | Outpatient (CLI) | payer MEDICARE, BC, SELFPAY ==
[2020-03-20 12:19] LABS: Abs Immature Grans 0.01 10^3/uL (0.0-0.06); Absolute Basophil Count 0.02 10^3/uL (0.0-0.2); Absolute Lymphocyte Count 1.49 10^3/uL (1.2-3.4); Absolute Monocyte Count 0.31 10^3/uL (0.1-0.8); Absolute Neutrophil Count 2.57 10^3/uL (1.2-6.7); Basophils % 0.4; Eosinophils % 2.2; HCT 39.4 % (40.0-50.0); HGB 12.9 g/dL (13.5-17.5); Immature Grans % 0.2; Lymphocytes % 33.1; MCH 33.2 pg (27.0-33.0); MCHC 32.7 % (32.0-36.0); MCV 101.5 fL (80-95); MPV 10.4 fL (8.0-11.0); Monocytes % 6.9; Neutrophils % 57.2; Nucleated RBC 0 %; Platelet Count 145 10^3/uL (130-400); RBC 3.88 10^6/uL (4.36-5.78); RDW 13.3 % (11.8-14.1); RDW-SD 49.6 fL
[2020-03-20 12:30] LABS: ALT 14 U/L (16-63); AST 23 U/L (15-37); Albumin 4.1 g/dL (3.4-5.0); Alkaline Phosphatase 71 U/L (46-116); Anion Gap 6.6 mmol/L (3-11); BUN 28 mg/dL (7-18); Bilirubin, Total 0.5 mg/dL (0.2-1.0); C-Reactive Protein 1.12 mg/dL (0.0-0.3); CO2 28.4 mmol/L (21.0-32.0); CREATININE 1.05 mg/dL (0.70-1.30); Calcium 9.4 mg/dL (8.5-10.1); Chloride 105 mmol/L (98-107); Glucose 96 mg/dL (74-106); Potassium 4.1 mmol/L (3.5-5.1); Sodium 140 mmol/L (136-145); Total Protein 7.4 g/dL (6.4-8.2)
[2020-03-21 18:16] LABS: PSA, Ultrasensitive 5.2 ng/mL (<= 6.5)
== END 2020-03-20 03:46 ==
PROVIDERS: Internal Medicine; PCP Family Medicine; Visit Provider Family Medicine
DX: C61 Malignant neoplasm of prostate (principal); M06.9 Rheumatoid arthritis, unspecified; Z79.899 Other long term (current) drug therapy
CPT/HCPCS: 36415; 80053; 84153; 85025; 86140

== ENCOUNTER → 2020-06-03 08:43 | Outpatient (BNVA) | payer MEDICARE, BC, SELFPAY | PROVIDERS: PCP Family Medicine; Referring Provider Family Medicine; Visit Provider Psychiatry & Neurology Neurology | DX: G20 Parkinson's disease (principal); K11.7 Disturbances of salivary secretion; K59.00 Constipation, unspecified; R13.10 Dysphagia, unspecified; R31.9 Hematuria, unspecified; N32.81 Overactive bladder | CPT/HCPCS: 99443 ==

== ENCOUNTER → 2020-07-03 12:18 | Outpatient (BNVA) | payer MEDICARE, BC, SELFPAY | PROVIDERS: PCP Family Medicine; Referring Provider Family Medicine; Visit Provider Psychiatry & Neurology Neurology | DX: G20 Parkinson's disease (principal); K11.7 Disturbances of salivary secretion; K59.00 Constipation, unspecified; N32.81 Overactive bladder; R13.10 Dysphagia, unspecified; R31.9 Hematuria, unspecified | CPT/HCPCS: 99213 ==

== ENCOUNTER → 2020-08-12 07:51 | Outpatient (BNVA) | payer MEDICARE, BC, SELFPAY | PROVIDERS: PCP Family Medicine; Referring Provider Family Medicine; Visit Provider Psychiatry & Neurology Neurology | DX: G20 Parkinson's disease (principal); K11.7 Disturbances of salivary secretion; K59.00 Constipation, unspecified; N32.81 Overactive bladder; R13.10 Dysphagia, unspecified; R31.9 Hematuria, unspecified | CPT/HCPCS: 99443 ==

== ENCOUNTER 2020-08-30 01:51 | Outpatient (CLI) | payer MEDICARE, BC, SELFPAY ==
[2020-08-30 12:41] LABS: Bilirubin Negative (Negative); Blood Negative (Negative); Clarity Clear (Clear); Glucose Negative (Negative); Ketones Trace mg/dL (Negative); Leukocyte Esterase Negative (Negative); Nitrite Negative (Negative); Specific Gravity 1.025 (1.005-1.025); Urobilinogen 0.2 EU/dL (Up TO 0.2)
== END 2020-08-30 01:52 | disposition home or self-care (01) ==
PROVIDERS: Psychiatry & Neurology Neurology; PCP Family Medicine; Visit Provider Internal Medicine Rheumatology
DX: R31.9 Hematuria, unspecified (principal)
CPT/HCPCS: 36415; 80053; 85027; 81003; 86140

== ENCOUNTER 2020-09-02 03:27 | Outpatient (CLI) | payer MEDICARE, BC, SELFPAY ==
[2020-09-02 13:57] LABS: Abs Immature Grans 0.01 10^3/uL (0.0-0.06); Absolute Basophil Count 0.03 10^3/uL (0.0-0.2); Absolute Eosinophil Count 0.11 10^3/uL (0.0-0.7); Absolute Lymphocyte Count 1.71 10^3/uL (1.2-3.4); Absolute Monocyte Count 0.43 10^3/uL (0.1-0.8); Absolute Neutrophil Count 3.53 10^3/uL (1.2-6.7); Basophils % 0.5; Eosinophils % 1.9; HCT 37.9 % (40.0-50.0); HGB 12.7 g/dL (13.5-17.5); Immature Grans % 0.2; Lymphocytes % 29.4; MCH 34.3 pg (27.0-33.0); MCHC 33.5 % (32.0-36.0); MCV 102.4 fL (80-95); MPV 9.8 fL (8.0-11.0); Monocytes % 7.4; Neutrophils % 60.6; Nucleated RBC 0 %; Platelet Count 153 10^3/uL (130-400); RDW 13.4 % (11.8-14.1); RDW-SD 50.5 fL; WBC 5.82 10^3/uL (4.4-10.8)
[2020-09-02 14:12] LABS: ALT 10 U/L (16-63); AST 22 U/L (15-37); Albumin 4.1 g/dL (3.4-5.0); Alkaline Phosphatase 67 U/L (46-116); Anion Gap 9.4 mmol/L (3-11); BUN 27 mg/dL (7-18); Bilirubin, Total 0.4 mg/dL (0.2-1.0); CO2 27.6 mmol/L (21.0-32.0); CREATININE 0.9 mg/dL (0.70-1.30); Calcium 9.5 mg/dL (8.5-10.1); Chloride 103 mmol/L (98-107); Glucose 93 mg/dL (74-106); Potassium 4.4 mmol/L (3.5-5.1); Sodium 140 mmol/L (136-145); Total Protein 7.6 g/dL (6.4-8.2)
[2020-09-02 14:35] LABS: C-Reactive Protein 0.09 mg/dL (0.0-0.3)
[2020-09-03 18:29] LABS: PSA, Ultrasensitive 4.6 ng/mL (<= 6.5)
== END 2020-09-02 03:28 | disposition home or self-care (01) ==
LOC: LBO 03:28
PROVIDERS: Internal Medicine Rheumatology; PCP Family Medicine; Visit Provider Internal Medicine
DX: C61 Malignant neoplasm of prostate (principal); M06.9 Rheumatoid arthritis, unspecified; Z79.899 Other long term (current) drug therapy
CPT/HCPCS: 36415; 80053; 84153; 85025; 86140

== ENCOUNTER → 2020-10-14 12:47 | Outpatient (BNVA) | payer MEDICARE, BC, SELFPAY | PROVIDERS: PCP Family Medicine; Referring Provider Family Medicine; Visit Provider Psychiatry & Neurology Neurology | DX: G20 Parkinson's disease (principal); K11.7 Disturbances of salivary secretion; K59.00 Constipation, unspecified; N32.81 Overactive bladder; R13.10 Dysphagia, unspecified; R31.9 Hematuria, unspecified | CPT/HCPCS: 99215 ==

== ENCOUNTER → 2020-11-25 09:47 | Outpatient (BNVA) | payer MEDICARE, BC, SELFPAY | PROVIDERS: PCP Family Medicine; Referring Provider Family Medicine; Visit Provider Psychiatry & Neurology Neurology | DX: G20 Parkinson's disease (principal); R41.3 Other amnesia; R13.10 Dysphagia, unspecified; K59.00 Constipation, unspecified; N32.81 Overactive bladder; K11.7 Disturbances of salivary secretion | CPT/HCPCS: 99215; 99415 ==

== ENCOUNTER 2020-12-12 03:36 | Outpatient (CLI) | payer MEDICARE, BC, SELFPAY ==
[2020-12-12 12:42] LABS: HCT 33.9 % (40.0-50.0); HGB 11.5 g/dL (13.5-17.5); MCHC 33.9 % (32.0-36.0); MCV 97.4 fL (80-95); MPV 9.9 fL (8.0-11.0); Platelet Count 172 10^3/uL (130-400); RBC 3.48 10^6/uL (4.36-5.78); RDW-SD 46.3 fL; WBC 4.79 10^3/uL (4.4-10.8)
[2020-12-12 12:45] LABS: Bilirubin Negative (Negative); Blood Negative (Negative); Clarity Clear (Clear); Glucose Negative (Negative); Ketones Negative (Negative); Leukocyte Esterase Negative (Negative); Nitrite Negative (Negative); Specific Gravity 1.015 (1.005-1.025); Urobilinogen 0.2 EU/dL (Up TO 0.2)
[2020-12-12 13:41] LABS: ALT 8 U/L (16-63); AST 23 U/L (15-37); Albumin 3.9 g/dL (3.4-5.0); Alkaline Phosphatase 59 U/L (46-116); Anion Gap 7.3 mmol/L (3-11); BUN 26 mg/dL (7-18); Bilirubin, Total 0.5 mg/dL (0.2-1.0); CO2 28.7 mmol/L (21.0-32.0); CREATININE 0.9 mg/dL (0.70-1.30); Calcium 9.4 mg/dL (8.5-10.1); Chloride 99 mmol/L (98-107); Glucose 101 mg/dL (74-106); Potassium 4.7 mmol/L (3.5-5.1); Sodium 135 mmol/L (136-145); TSH (W/Ref FT4) 0.89 uIU/mL (0.36-3.74); Total Protein 6.7 g/dL (6.4-8.2); Vitamin B12 1631 pg/mL (193-986)
== END 2020-12-12 03:37 | disposition home or self-care (01) ==
LOC: LOS 03:36
PROVIDERS: PCP Family Medicine; Visit Provider Psychiatry & Neurology Neurology
DX: E13.10 Other specified diabetes mellitus with ketoacidosis without coma (principal); G62.9 Polyneuropathy, unspecified; G20 Parkinson's disease; R41.0 Disorientation, unspecified; R41.3 Other amnesia
CPT/HCPCS: 36415; 80053; 85027; 81003; 82607; 84443

== ENCOUNTER 2020-12-13 12:34 | Inpatient (IN) | payer MEDICARE, BC, SELFPAY ==
[2020-12-13 12:43] VITALS: BP 156/68; PULSE 61; TEMP 36.7; O2SAT 98
[2020-12-13 12:49] VITALS: RESP 15
--- NOTE | 2020-12-13 12:52 | W.ED.GENAD ---
Discharge Plan Disposition Patient Disposition: [facility] INPATIENT Condition: Stable Discharge Details Clinical Impression: Frequent falls, Parkinsonism Admit Date/Time: 12/13/20 14:22 Admit Provider: Lalit Wells Attending Provider: Lalit Wells Primary Care Provider: Willie Hodges ED Provider: Lauryn Sutton Medical Decision Making 80 year old male with a history of Parkinson's, RA, HTN, Hyperlidpidemia, Prostate CA presents to the ER accompanied by his daughter for increased frequent falls at home, inability to walk by himself and failure to take care of him at home safely. Patient states she has been in contact with patient's PCP and Neurologist and was instructed to come here by PCP, Patient had labs and urinalysis done yesterday. Patient has no signs of trauma, no focal neuro deficits noted, denies neck or back pain, no fever, chills, SOB, no chest pain. Patients only complaint is some leg pain which is at his baseline. 1305: Care management consulted, spoke with Trina, discussed patient case and details, she agrees to come and speak with the daughter. Will re-draw labs and obtain urinalysis and CT head due to increased falls and inability to walk. 1401: Spoke with radiologist regarding head CT, He reports some questionable left occipital lobe low attenuation which is questionable for evolving infarct, unclear if this was present with last Head CT. EXAM: CT HEAD WO CLINICAL HISTORY: Frequent falls, Hx parkinsons. COMPARISON: CT CT HEAD WO/W from 03/30/2019 FINDINGS: There is mild generalized cerebral atrophy. There is a question of mild decreased attenuation in left occipital lobe in comparison with the right. Possibility of left occipital infarct of indeterminate age is raised, cysts similar findings may have been present on prior examination of March 2019. No evidence of acute intracranial hemorrhage, mass effect, or midline shift. The orbital structures are unremarkable. The temporal bone structures appear intact. Calvarium: Normal. Visualized Paranasal sinuses/Mastoids: Clear. IMPRESSION: No evidence of acute intracranial hemorrhage. Question left occipital infarct of uncertain age. Correlation with brain MRI may be obtained if clinically appropriate. 1404: Spoke with Dr. Hodges who is patients PCP, he expressed concern for patients decline and deterioration over the last week and being unsafe at home. I did discuss work up and recent devekopment on Head CT and informed him I would do whatever the right thing is for the patient. XR CHEST 2V PA LATERAL EXAM: XR CHEST 2V PA LATERAL CLINICAL HISTORY: Frequent falls TECHNIQUE: COMPARISON: CR,XR XR CHEST 2V PA LATERAL from 03/16/2019 FINDINGS: There is an eventration of the diaphragm on the right with bowel interposed between hepatic dome in the diaphragm, unchanged from prior examination of February 2019. Cardiac size is within normal limits. Lungs appear predominantly clear except for question of slight atelectasis or consolidation seen in the costophrenic angle on the left laterally. Old healed rib fractures noted on the right. No pleural effusion or pneumothorax. IMPRESSION: Question atelectasis or consolidation laterally in the left lung base. Follow-up films suggested following treatment. 1421: Spoke with Dr. Wells, discussed patient case and details who agrees to accept patient for admission at this time. Family and patient aware of plan of care, verbalized understanding and are in agreement with plan. HPI General Mode of arrival: wheelchair. Date/Time Provider Initiated Documentation: 12/13/20 12:37. Limitations to Documentation: no limitations and altered mental status (hx of parkinsons ). Information obtained by: patient and family (Daughter). HPI Narrative: 80 year old male with a history of Parkinson's, RA, HTN, Hyperlidpidemia, Prostate CA presents to the ER accompanied by his daughter for increased frequent falls at home, inability to walk by himself and failure to take care of him at home safely. Patient states she has been in contact with patient's PCP and Neurologist and was instructed to come here by PCP, Patient had labs and urinalysis done yesterday. Patient has no signs of trauma, denies neck or back pain, no fever, chills, SOB, no chest pain. Patients only complaint is some leg pain which is at his baseline. Related Data Home Medications Medication Instructions Recorded Confirmed fluocinonide 120 gm TOPICAL PRN 12/04/13 12/13/20 Benedict-Mag 1 ea PO DAILY tab.chew 10/30/14 12/13/20 cholecalciferol (vitamin D3) 1,000 unit PO DAILY 06/30/16 12/13/20 [Vitamin D3] amoxicillin 500 mg capsule 2 gm PO ONCE PRN cap 12/24/17 12/13/20 cyanocobalamin (vitamin B-12) 1,000 mcg PO DAILY 12/24/17 12/13/20 1,000 mcg tablet loperamide 2 mg capsule 2 mg PO DAILY PRN cap 12/24/17 12/13/20 omega-3 fatty acids 1,000 mg 1,000 mg PO DAILY 12/24/17 12/13/20 capsule ascorbic acid (vitamin C) 500 mg 500 mg PO .4 DAYS A WEEK tab 04/04/18 12/13/20 tablet zinc 50 mg tablet 50 mg PO .3 DAYS A WEEK tab 04/04/18 12/13/20 econazole 1 % topical cream 1 applic TP BID 10/12/18 12/13/20 folic acid 1 mg tablet 1 mg PO DAILY tab 10/12/18 12/13/20 psyllium husk 0.4 gram capsule 0.4 gm PO PRN PRN cap 10/12/18 12/13/20 cetirizine 10 mg tablet 5 mg PO DAILY PRN 01/23/19 12/13/20 ibuprofen 200 mg capsule 200 mg PO HS cap 12/12/19 12/13/20 amitriptyline 25 mg tablet 25 mg PO QHS #90 tab 05/03/20 12/13/20 methotrexate sodium 2.5 mg tablet 5 mg PO QWEEK #24 tab 09/25/20 12/13/20 oxybutynin chloride 5 mg tablet 5 mg PO QHS PRN #90 tab 11/12/20 12/13/20 adalimumab 40 mg/0.8 mL See Rx Instructions SUBCUT .COMPLEX 11/25/20 12/13/20 subcutaneous syringe kit sertraline 25 mg tablet 25 mg PO DAILY #90 tab 12/11/20 12/13/20 sertraline 50 mg tablet 50 mg PO DAILY #90 tab 12/11/20 12/13/20 simvastatin 10 mg tablet 10 mg PO QPM #90 tab 12/11/20 12/13/20 carbidopa 25 mg-levodopa 100 mg 1 tab PO QHS #90 tab 12/12/20 12/13/20 tablet carbidopa 25 mg-levodopa 250 mg 1 tab PO TID #90 tab 12/12/20 12/13/20 tablet Previous Rx's Medication Instructions Recorded amitriptyline 25 mg tablet 25 mg PO QHS #90 tab 05/03/20 methotrexate sodium 2.5 mg tablet 5 mg PO QWEEK #24 tab 06/09/21 oxybutynin chloride 5 mg tablet 5 mg PO QHS PRN #90 tab 11/12/20 sertraline 25 mg tablet 25 mg PO DAILY #90 tab 12/11/20 sertraline 50 mg tablet 50 mg PO DAILY #90 tab 12/11/20 simvastatin 10 mg tablet 10 mg PO QPM #90 tab 12/11/20 carbidopa 25 mg-levodopa 100 mg 1 tab PO QHS #90 tab 12/12/20 tablet carbidopa 25 mg-levodopa 250 mg 1 tab PO TID #90 tab 12/12/20 tablet Allergies Allergy/AdvReac Type Severity Reaction Status Date / Time POLLEN Allergy Unknown Uncoded 12/13/20 12:47 dust AdvReac Unknown PND, RUNNY Uncoded 12/13/20 12:47 NOSE General Stated Complaint: GenMedical ELAINE: 3 Review of Systems All systems reviewed & are unremarkable except as noted in HPI and below Constitutional Constitutional: Reports as per HPI, Denies chills, Reports frequent falls and Reports weakness Neurologic Neurologic: Reports frequent falls and Reports weakness PFSH Medical History Bilateral chronic knee pain Carpal tunnel syndrome on both sides based on sx; rheum recommends no surgery Confusion 10/31/20 Resolved with decrease of Oxybutnin to QD Cubital tunnel syndrome on left based on sx; no surgery per rheum 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 Hyperlipidemia Hypertension Insomnia Ocular hemorrhage Osteoarthritis of knee (10/01/14) Overactive bladder Parkinsonism 10/29/14; [facility] ([facility]) Prostate cancer RA (rheumatoid arthritis) Retinal detachment multiple, bilateral Sialorrhea 10/29/14; [facility]; ([facility]) Spinal stenosis lumbar with h/o radiculopathy Surgical History History of cataract removal with insertion of prosthetic lens LEFT REMOVAL; LEFT RETINAL BUCKLE W/VITRIECTOMY; RIGHT RETINAL DETACHMENT W/VITRIECTOMY; YAG LASER TX CLOUDED LENS History of spinal surgery Lumbar 2012 Status post carpal tunnel release LEFT Status post foot surgery Status post hip replacement RIGHT Status post prostatectomy Status post total knee replacement Bilateral Status post transurethral resection of prostate Family History Mother Essential hypertension Parkinson disease Father Personal history of malignant neoplasm PANCREATIC Heart disease CAD Parkinson disease Grandfather Personal history of malignant neoplasm LEUKEMIA Grandfather , UNKNOWN No problems noted. Grandmother No problems noted. Grandmother Essential hypertension Stroke Social History Smoking/Tobacco Use Status: Never Smoking risk assessment performed?: Yes Alcohol Intake: current Alcohol Intake frequency: 0-2 drinks per day Substance use type: does not use Duration: 15-30 minutes/day Frequency: 3-4 times per week Seatbelt use: always Do you feel safe at home: Yes Do you feel safe in your relationship?: Yes Exam Const General: cooperative, comfortable and well groomed Nutritional Appearance: average body habitus and well nourished Orientation: alert, awake and oriented to person [facility] Head: normal to inspection, no palpable skull fracture, normocephalic, atraumatic, no Monet's sign and no raccoon eyes Ears: external ears normal General nose exam: external nose normal Mouth: tongue normal Resp Effort & Inspection: normal respiratory effort and able to speak in complete sentences Auscultation: clear to auscultation bilaterally Cardio Rate: regular rate Rhythm: regular rhythm Heart Sounds: S1 normal and S2 normal GI Inspection: normal to inspection Palpation: soft Auscultation: normal bowel sounds Back/Spine/Pelvis Back: no CVA tenderness and No back tenderness Cervical Spine: No cervical spinal tenderness Thoracic/Lumbar Spine: thoracic and lumbar spine normal to inspection Pelvis: no pain with anterior-posterior compression Skin General skin exam: no rashes or lesions noted Lesions: no lesions Rashes: no rashes Trauma: no lacerations or abrasions Wounds: no wounds Neuro General: patient alert, patient awake, moves all extremities and no focal motor deficits Cranial Nerves: tongue midline and able to elevate shoulders bilaterally Motor: muscle tone normal throughout, strength 5/5 throughout and no pronator drift Course Vital Signs Vital signs: Vital Signs Temperature 36.7 C 12/13/20 12:43 Pulse 61 12/13/20 12:43 Blood Pressure 156/68 H 12/13/20 12:43 Pulse Oximetry 98 12/13/20 12:43 Temperature 36.7 C 12/13/20 12:43 Pulse 61 12/13/20 12:43 Respiratory Rate 15 12/13/20 12:49 Respiratory Effort Non-Labored 12/13/20 12:49 Respiratory Depth Normal 12/13/20 12:49 Respiratory Pattern Normal 12/13/20 12:49 Blood Pressure 156/68 H 12/13/20 12:43 Blood Pressure Position Supine 12/13/20 12:43 Pulse Oximetry 98 12/13/20 12:43 Oxygen Delivery Method Room Air 12/13/20 12:43 Oxygen Flow Rate 0 12/13/20 12:43 Pain Level 2 12/13/20 12:43
--- NOTE | 2020-12-13 13:00 | DI.CT_ITS ---
Exam(s) CT HEAD WO EXAM: CT HEAD WO CLINICAL HISTORY: Frequent falls, Hx parkinsons. TECHNIQUE: Imaging Protocol: Axial computed tomography images with coronal and sagittal reformatted images were created and reviewed COMPARISON: CT CT HEAD WO/W from 03/30/2019 FINDINGS: There is mild generalized cerebral atrophy. There is a question of mild decreased attenuation in left occipital lobe in comparison with the right . Possibility of left occipital infarct of indeterminate age is raised, cysts similar findings may h ave been present on prior examination of March 2019. No evidence of acute intracranial hemorrhage, mass effect, or midline shift. The orbital structures are unremarkable. The temporal bone structures appear intact. Calvarium: Normal. Visualized Paranasal sinuses/Mastoids: Clear. IMPRESSION: No evidence of acute intracranial hemorrhage. Question left occipital infarct of uncertain age. Cor relation with brain MRI may be obtained if clinically appropriate. RADIATION DOSE DELIVERED: 889.16mGy.cm Total DLP 889.16mGy.cm Total DLP 39.59mGy CTDIvol DATA REPOSITORY: All CT scans at this facility are submitted to the National Radiology Data Registry (NRDR) Dose Index Registry (DIR) with the [employer] ([employer]). RADIATION OPTIMIZATION: All CT scans at this facility use at least one of these dose optimization te chniques: automated exposure control; mA and/or kV adjustment per patient size (includes targeted exa ms where dose is matched to clinical indication); or iterative reconstruction.
--- NOTE | 2020-12-13 13:00 | DI.RAD_ITS ---
Exam(s) XR CHEST 2V PA LATERAL EXAM: XR CHEST 2V PA LATERAL CLINICAL HISTORY: Frequent falls TECHNIQUE: COMPARISON: CR,XR XR CHEST 2V PA LATERAL from 03/16/2019 FINDINGS: There is an eventration of the diaphragm on the right with bowel interposed between hepatic dome in t he diaphragm, unchanged from prior examination of February 2019. Cardiac size is within normal limit s. Lungs appear predominantly clear except for question of slight atelectasis or consolidation seen in the costophrenic angle on the left laterally. Old healed rib fractures noted on the right. No pl eural effusion or pneumothorax. IMPRESSION: Question atelectasis or consolidation laterally in the left lung base. Follow-up films suggested fol lowing treatment. RADIATION DOSE DELIVERED: Total DLP
[2020-12-13 13:24] LABS: Abs Immature Grans 0.01 10^3/uL (0.0-0.06); Absolute Basophil Count 0.03 10^3/uL (0.0-0.2); Absolute Eosinophil Count 0.15 10^3/uL (0.0-0.7); Absolute Lymphocyte Count 1.54 10^3/uL (1.2-3.4); Absolute Monocyte Count 0.66 10^3/uL (0.1-0.8); Absolute Neutrophil Count 2.82 10^3/uL (1.2-6.7); Basophils % 0.6; Eosinophils % 2.9; HGB 11.3 g/dL (13.5-17.5); Immature Grans % 0.2; Lymphocytes % 29.6; MCH 32.8 pg (27.0-33.0); MCHC 33.2 % (32.0-36.0); MCV 98.6 fL (80-95); MPV 9.6 fL (8.0-11.0); Monocytes % 12.7; Nucleated RBC 0 %; Platelet Count 156 10^3/uL (130-400); RBC 3.45 10^6/uL (4.36-5.78); RDW-SD 46.4 fL; WBC 5.21 10^3/uL (4.4-10.8)
[2020-12-13 13:36] LABS: Magnesium 1.9 mg/dL (1.8-2.4)
[2020-12-13 13:40] LABS: ALT 16 U/L (16-63); AST 24 U/L (15-37); Albumin 3.7 g/dL (3.4-5.0); Alkaline Phosphatase 55 U/L (46-116); Anion Gap 6.5 mmol/L (3-11); BUN 23 mg/dL (7-18); Bilirubin, Total 0.3 mg/dL (0.2-1.0); CO2 28.5 mmol/L (21.0-32.0); CREATININE 0.9 mg/dL (0.70-1.30); Calcium 9.1 mg/dL (8.5-10.1); Chloride 101 mmol/L (98-107); Glucose 101 mg/dL (74-106); Potassium 4.4 mmol/L (3.5-5.1); Sodium 136 mmol/L (136-145); Total Protein 6.8 g/dL (6.4-8.2)
[2020-12-13 14:29] LABS: Bilirubin Negative (Negative); Blood Negative (Negative); Clarity Clear (Clear); Glucose Negative (Negative); Ketones Negative (Negative); Leukocyte Esterase Negative (Negative); Nitrite Negative (Negative); Specific Gravity 1.015 (1.005-1.025); Urobilinogen 0.2 EU/dL (Up TO 0.2); pH 6.5 (5-8)
[2020-12-13 14:58] LABS: Source Nasal/Nares
[2020-12-13 14:59] VITALS: BP 156/68; PULSE 61; RESP 15; TEMP 36.7; O2SAT 98
[2020-12-13 15:15] VITALS: BP 163/82; PULSE 62; RESP 17; TEMP 36.8; O2SAT 97
[2020-12-13 15:50] LABS: COVID-19 PCR Negative (Negative)
--- NOTE | 2020-12-13 15:57 | CMPROGNOTE_ITS ---
- If Service Date Differs Date of service: 12/13/20 Time of Service: 13:45 Care Management Progress Note Wade presents in the ED due to frequent falls and inability to walk. At the request of ED provider, MAGGI meets with Wade and his daughter Robina. Wade lives alone in [place]. Robina reports that he has a diagnosis of Parkinson and expresses her belief that it is no longer safe for him to be at home alone due to frequent falls and an inability to care for himself. Wade currently has p rivate caregivers a few hours each day of the week but Robina feels he requires around the clock care. We discuss that Home Health PT and [employer] can be ordered but that would not provide 24/ care. Robina feels her dad should be going to a SNF placement. MAGGI advises that unless Lauryn, ED provider, finds a medical reason to admit him inpatient to the hospital, the family will need to pay out of pocket for the SNF placement, as Medicare will not pay for a nursing home facility without Wade first having a three nights qualifying stay at the hospital. Robina states she was told by Dr. Hodges of [facility] to bring her father to [facility] for admission to the hospital. MAGGI advises her that the ED provider is doing a work-up but if she does not find a medical reason to admit him, then we will be unable to proceed with an admission.
--- NOTE | 2020-12-13 17:29 | W.PM.HP.N ---
Date of service: 12/13/20 Time of Service: 17:30 Assessment and Plan Assessment and plan (1) Frequent falls: Status: Acute Assessment and plan: Multifactoral: Parkinsonism, RA, OA. He uses a walker and does have a wheelchair for use out of the home. PT to evaluate. He is likely going to continue to decline but may be able to slow progression of his disease states. He may benefit from a motorized wheelchair if he is capable of utilizing his upper exts adequately. (2) Rheumatoid arthritis: Status: Acute Assessment and plan: On Humira Q2 weeks. Due this coming Tues. Methotrexate 5mg po Qwk. (3) Parkinsonism: Status: Acute Assessment and plan: Cont home Sinemet Qualifiers: Parkinsonism type: Parkinson's disease Qualified Code(s): G20 - Parkinson's disease (4) Constipation: Status: Acute Assessment and plan: He controls this with prunes. Will have kitchen provide prunes. Miralax offered prn History of Present Illness History of Present Illness Chief Complaint: Frequent falls, Failure to thrive. Narrative: This is a 80 yo male with a h/o Parkinson's, RA, HTN, HLD, Prostate CA. He presented to the ED accompanied by his daughter who endorsed that he has been noted to be falling more frequently. She has concerns about his ability to care for himself. He endorses that at times a leg will give out and at other times he cannot get his legs to move. He states he has always been able to let himself down in a controlled manner He denies hitting his head. He denies palpitations, cp, F/C, N/V, SOA/cough. Covid in the ED was negative. CT head showed mild gen. cerebral atrophy. There is a question of mild decreased attenuation in the left occipital lobe compared to the right. Questionably a left occipital infarct. MRI ordered and pending. WBC count normal. Hgb 11.3. Lytes normal. BUN 23. creatinine 0.9. SBP in the 150-160's. Afebrile. RA O2 sats in the upper 90's. Admitting for observation and PT evaluation. 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 Hyperlipidemia Hypertension Insomnia Ocular hemorrhage Osteoarthritis of knee (10/01/14) Overactive bladder Parkinsonism 10/29/14; [facility] (SEE SCANNED) Prostate cancer RA (rheumatoid arthritis) Retinal detachment multiple, bilateral Sialorrhea 10/29/14; [facility]; (SEE SCANNED) Spinal stenosis lumbar with h/o radiculopathy Surgical History History of cataract removal with insertion of prosthetic lens LEFT REMOVAL; LEFT RETINAL BUCKLE W/VITRIECTOMY; RIGHT RETINAL DETACHMENT W/VITRIECTOMY; YAG LASER TX CLOUDED LENS History of spinal surgery Lumbar 2012 Status post carpal tunnel release LEFT Status post foot surgery Status post hip replacement RIGHT Status post prostatectomy Status post total knee replacement Bilateral Status post transurethral resection of prostate Family History Mother Essential hypertension Parkinson disease Father Personal history of malignant neoplasm PANCREATIC Heart disease CAD Parkinson disease Grandfather Personal history of malignant neoplasm LEUKEMIA Grandfather , UNKNOWN No problems noted. Grandmother No problems noted. Grandmother Essential hypertension Stroke Social History Smoking/Tobacco Use Status: Never Smoking risk assessment performed?: Yes Alcohol Intake: current Alcohol Intake frequency: 0-2 drinks per day Substance use type: does not use Duration: 15-30 minutes/day Frequency: 3-4 times per week Seatbelt use: always Do you feel safe at home: Yes Do you feel safe in your relationship?: Yes Meds Allergies and Home Medications Allergies Allergy/AdvReac Type Severity Reaction Status Date / Time POLLEN Allergy Unknown Uncoded 12/13/20 12:47 dust AdvReac Unknown PND, RUNNY Uncoded 12/13/20 12:47 NOSE Home Medications Medication Instructions Recorded Confirmed Type fluocinonide 120 gm TOPICAL PRN 12/04/13 12/13/20 History Benedict-Mag 1 ea PO DAILY tab.chew 10/30/14 12/13/20 History cholecalciferol (vitamin D3) 1,000 unit PO DAILY 06/30/16 12/13/20 History [Vitamin D3] amoxicillin 500 mg capsule 2 gm PO ONCE PRN cap 12/24/17 12/13/20 History cyanocobalamin (vitamin B-12) 1,000 mcg PO DAILY 12/24/17 12/13/20 History 1,000 mcg tablet loperamide 2 mg capsule 2 mg PO DAILY PRN cap 12/24/17 12/13/20 History omega-3 fatty acids 1,000 mg 1,000 mg PO DAILY 12/24/17 12/13/20 History capsule ascorbic acid (vitamin C) 500 mg 500 mg PO .4 DAYS A WEEK tab 04/04/18 12/13/20 History tablet zinc 50 mg tablet 50 mg PO .3 DAYS A WEEK tab 04/04/18 12/13/20 History econazole 1 % topical cream 1 applic TP BID 10/12/18 12/13/20 History folic acid 1 mg tablet 1 mg PO DAILY tab 10/12/18 12/13/20 History psyllium husk 0.4 gram capsule 0.4 gm PO PRN PRN cap 10/12/18 12/13/20 History cetirizine 10 mg tablet 5 mg PO DAILY PRN 01/23/19 12/13/20 History ibuprofen 200 mg capsule 200 mg PO HS cap 12/12/19 12/13/20 History amitriptyline 25 mg tablet 25 mg PO QHS #90 tab 05/03/20 12/13/20 Rx methotrexate sodium 2.5 mg tablet 5 mg PO QWEEK #24 tab 09/25/20 12/13/20 Rx oxybutynin chloride 5 mg tablet 5 mg PO QHS PRN #90 tab 11/12/20 12/13/20 Rx adalimumab 40 mg/0.8 mL See Rx Instructions SUBCUT .COMPLEX 11/25/20 12/13/20 History subcutaneous syringe kit sertraline 25 mg tablet 25 mg PO DAILY #90 tab 12/11/20 12/13/20 Rx sertraline 50 mg tablet 50 mg PO DAILY #90 tab 12/11/20 12/13/20 Rx simvastatin 10 mg tablet 10 mg PO QPM #90 tab 12/11/20 12/13/20 Rx carbidopa 25 mg-levodopa 100 mg 1 tab PO QHS #90 tab 12/12/20 12/13/20 Rx tablet carbidopa 25 mg-levodopa 250 mg 1 tab PO TID #90 tab 12/12/20 12/13/20 Rx tablet Exam Const General: cooperative, no acute distress and frail appearing Nutritional Appearance: average body habitus Orientation: alert and oriented x3 HENMT Head: normocephalic and atraumatic Neck Neck: full ROM and no JVD Resp Effort & Inspection: normal respiratory effort Auscultation: clear to auscultation bilaterally Cardio Rate: regular rate Rhythm: regular rhythm Heart Sounds: S1 normal and S2 normal GI Palpation: soft Auscultation: hyperactive bowel sounds Skin General skin exam: no rashes or lesions noted Neuro General: moves all extremities Cranial Nerves: facial strength normal Cognition: normal cognition Speech: other (weak vocal projection.) Motor: tone not normal throughout (Cog-wheel rigidity), strength not 5/5 throughout, tremor (Intentional tremor of hands.) and other (Unable to extend elbows d/t contractures. ) Extrem General: no pedal edema and no calf tenderness Hand/finger images: 1. Enlargement of DIP and PIP joints of both hands. Psych Mood: congruent mood Affect: other (Masked facies) Results Labs Result diagrams: 12/13/20 13:15 12/13/20 13:15 Labs: Laboratory Results - last 24 hr 12/13/20 12/13/20 12/13/20 13:15 13:15 13:15 WBC 5.21 RBC 3.45 L Hgb 11.3 L Hct 34.0 L MCV 98.6 H MCH 32.8 MCHC 33.2 RDW 13.0 Plt Count 156 MPV 9.6 Immature Gran % 0.2 Neutrophils % 54.0 Lymphocytes % 29.6 Monocytes % 12.7 Eosinophils % 2.9 Basophils % 0.6 Nucleated RBC % 0 Absolute Neutrophils 2.82 Absolute Lymphocytes 1.54 Absolute Monocytes 0.66 Absolute Eosinophils 0.15 Absolute Basophils 0.03 Sodium 136 Potassium 4.4 Chloride 101 Carbon Dioxide 28.5 Anion Gap 6.5 BUN 23 H Creatinine 0.9 Estimated GFR/1.73 m2 >= 60.00 Glucose 101 Calcium 9.1 Magnesium 1.9 Total Bilirubin 0.3 AST 24 ALT 16 Alkaline Phosphatase 55 Total Protein 6.8 Albumin 3.7 Urine Color Urine Clarity Urine pH Ur Specific [place] Urine Protein Urine Ketones Urine Blood Urine Nitrite Urine Bilirubin Urine Urobilinogen Ur Leukocyte Esterase Urine Glucose COVID-19 Source SARS-CoV-2 (PCR) 12/13/20 12/13/20 14:10 14:49 WBC RBC Hgb Hct MCV MCH MCHC RDW Plt Count MPV Immature Gran % Neutrophils % Lymphocytes % Monocytes % Eosinophils % Basophils % Nucleated RBC % Absolute Neutrophils Absolute Lymphocytes Absolute Monocytes Absolute Eosinophils Absolute Basophils Sodium Potassium Chloride Carbon Dioxide Anion Gap BUN Creatinine Estimated GFR/1.73 m2 Glucose Calcium Magnesium Total Bilirubin AST ALT Alkaline Phosphatase Total Protein Albumin Urine Color Yellow Urine Clarity Clear Urine pH 6.5 Ur Specific [place] 1.015 Urine Protein Negative Urine Ketones Negative Urine Blood Negative Urine Nitrite Negative Urine Bilirubin Negative Urine Urobilinogen 0.2 Ur Leukocyte Esterase Negative Urine Glucose Negative COVID-19 Source Nasal/Nares SARS-CoV-2 (PCR) Negative Last Vital Signs Temp 36.8 C 12/13/20 15:15 Pulse 62 12/13/20 15:15 Resp 17 12/13/20 15:15 BP 163/82 H 12/13/20 15:15 Pulse Ox 97 12/13/20 15:15
[2020-12-13] MEDS: Normal Saline 1,000 ML 75 ML IV (19:55)
[2020-12-13] MEDS: Ibuprofen 200 MG TAB PO (22:28)
[2020-12-13] MEDS: Simvastatin 10 MG TAB PO (22:29)
--- NOTE | 2020-12-14 | DI.US_ITS ---
Exam(s) US EXTREMITY VENOUS BI EXAM: US EXTREMITY VENOUS BI CLINICAL HISTORY: concern for DVT. TECHNIQUE: Bilateral lower extremity venous ultrasound performed using grayscale, color-flow, and sp ectral Doppler analysis. COMPARISON: No exams were available for comparison FINDINGS: The bilateral common femoral, femoral and popliteal veins demonstrate normal compressibility, augment ation, and color Doppler. The posterior tibial veins are patent. The saphenofemoral junctions are unr emarkable. There is no evidence of a Vallejo's cyst. The soft tissues are unremarkable. IMPRESSION: Right: Negative for DVT Left: Negative for DVT DATA REPOSITORY:
[2020-12-14 00:18] VITALS: BP 184/83; PULSE 64; RESP 16; TEMP 36.5; O2SAT 98
[2020-12-14 07:15] VITALS: BP 138/77; PULSE 55; RESP 16; TEMP 36.7; O2SAT 97
[2020-12-14 07:27] LABS: Anion Gap 4.7 mmol/L (3-11); BUN 19 mg/dL (7-18); CO2 29.3 mmol/L (21.0-32.0); CREATININE 0.8 mg/dL (0.70-1.30); Calcium 8.8 mg/dL (8.5-10.1); Chloride 105 mmol/L (98-107); Glucose 95 mg/dL (74-106); Potassium 3.8 mmol/L (3.5-5.1); Sodium 139 mmol/L (136-145)
[2020-12-14 08:14] VITALS: BP 169/78; PULSE 65; RESP 15; TEMP 36.4; O2SAT 98
[2020-12-14] MEDS: Sertraline 50 MG TAB PO (08:14)
[2020-12-14] MEDS: Cyanocobalamin 500 MCG TAB 1000 MCG PO (08:14)
[2020-12-14] MEDS: Folic Acid 1 MG TAB PO (08:14)
[2020-12-14] MEDS: Normal Saline Flush 10 ML SYR IVP ×2 (08:14→23:44)
[2020-12-14] MEDS: Omega-3 Fatty Acids 1000 MG CAP PO (08:14)
[2020-12-14] MEDS: Sertraline 25 MG TAB PO (08:14)
[2020-12-14] MEDS: Normal Saline 1,000 ML 75 ML IV (09:33)
--- NOTE | 2020-12-14 09:44 | PT.INIE ---
Date of service: 12/14/20 Time of Service: 09:00 PT Notes Visit Reasons: Frequent Falls, Parkinsons Inpatient Physical Therapy Evaluation Date: December 14, 2020 Referring Doctor: Lauryn Sutton PT Orders: PT CONSULT: Frequent falls, fall safety assessment Precautions: Fall risk, standard Patient Profile/Admitting Diagnosis: 80-year-old male with multiple comorbidities of PD, RA, and OA presenting to ER with his daughter on December 13, 2020 to the recommendation of his PCP due to increased falling and lower extremity weakness and immobility, for medical work-up. Differential diagnosis at this point suggesting UTI, patient currently undergoing work-up. 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 Hyperlipidemia Hypertension Insomnia Ocular hemorrhage Osteoarthritis of knee (10/01/14) Overactive bladder Parkinsonism 10/29/14; [facility] (SEE SCANNED) Prostate cancer RA (rheumatoid arthritis) Retinal detachment multiple, bilateral Sialorrhea 10/29/14; [facility]; (SEE SCANNED) Spinal stenosis lumbar with h/o radiculopathy Surgical History History of cataract removal with insertion of prosthetic lens LEFT REMOVAL; LEFT RETINAL BUCKLE W/VITRIECTOMY; RIGHT RETINAL DETACHMENT W/VITRIECTOMY; YAG LASER TX CLOUDED LENS History of spinal surgery Lumbar 2013 Status post carpal tunnel release LEFT Status post foot surgery Status post hip replacement RIGHT Status post prostatectomy Status post total knee replacement Bilateral Status post transurethral resection of prostate Social History/Home Situation: Patient reports to me that he lives alone in an apartment or mobile home, is unclear on which one. He states that he has caregivers that come in daily to provide food, clean, and visit with him. He is alone from 10 AM to 7 PM. He generally ambulates around his home with his walker, and states that he can get in and out of his home with a ramp or 2 small steps with his walker. This is per his subjective report, not sure how accurate this is. Current Functional Limitations: Patient is currently requiring assistance with sit to stand and stand to sit transfers, all ambulation activities with use of walker, and needed assistance with toileting today Equipment Owned/DME: Walker, WC Subjective: Denies any pain. Initially seems very confused, telling me that he and his daughter got into a small argument, while traveling through the current snowstorm. He is annoyed by all of the hospital bills, he is anxious to get out of the hospital. Does not suggest any feelings of illness. He does acknowledge that he is not able to get up and go like he once was. He tells me that he has had many close falls, but no falls. Objective: General Observation: Sitting in recliner chair, just having finished his breakfast. IV left cubital fossa. Swelling of bilateral elbows and digits due to arthritis. Mild edema noted bilateral lower extremities left greater than right Mental Status: Confused, not alert today, does know he is in the hospital but not certain which one. He is able to tell me that he lives alone of over a month, but is not clear on whether or not he lives in a mobile home or an apartment. Does know that he has a daughter, but seems to be confused about the current relationship peacefulness. Pain: 0/10 Vital Signs: BP 145/83, HR 79 ROM: Right Upper Extremity: Active shoulder flexion 80, scapular plane 70, passive shoulder flexion 145, passive shoulder abduction 90, elbow WNL, wrist limited 20 degrees flexion extension due to arthritis Left Upper Extremity: Active shoulder flexion 90, scapular plane 60, passive shoulder flexion 120, passive shoulder abduction 90, elbow WNL, wrist limited 20 degrees flexion and extension due to arthritis Right Lower Extremity: Right hip limited 90 degrees flexion in the seated position, 5 to 100 degrees knee mobility, assessed in sitting. Ankle within functional limits Left Lower Extremity: Right hip limited to 120 degrees flexion in the seated position, 5 to 100 degrees knee mobility assessed in sitting. Ankle within functional limits Strength: Right Upper Extremity: Grossly 3+/5 all planes of right shoulder, elbow 4+/5, wrist 3/5 Left Upper Extremity: Grossly 4/5 all planes left shoulder with crepitus, elbow 4+/5, wrist 3/5 Right Lower Extremity: Hip flexion 3/5, knee extension 4/5, knee flexion 5/5, ankle dorsiflexion 4/5, plantarflexion 4/5 Left Lower Extremity: Hip flexion 4 -/5, knee extension 4/5, knee flexion 5/5, ankle dorsiflexion plantarflexion 4/5 Sensation: Intact Bed Mobility/Transfers: Requires verbal cues throughout for proper hand placement for safety Sit to stand, max assist x1 at RW Stand to sit, max assist x1 to slow descent of RW Pivot transfer, mod assist x1 to limit falls, and assist with movement of RW Bed mobility not assessed today, can completely visits. Chair mobility requires min assist to transfer to the edge of the seat. Standing at RW, requires min assist x1 to maintain balance while utilizing urinal Gait: CG x1, min assist x1 for mobilization of RW, verbal cues for encouragement of advancement of lower extremities. Tolerates only 4-5 steps, shuffling pattern, bradykinesia observed. Requires verbal cues throughout for proper hand placement on walker Balance: Static Sitting: Fair Dynamic Sitting: Poor Static Standing: Poor Dynamic Standing: Poor Stage IV balance test: Feels to all stages Special Tests: Mobility Limitations Standardized Measure [facility] 6 clicks Basic Mobility Inpatient Short Form: 72% disability Informed Consent/Education: Patient instructed in purpose of PT consult and plan of care. Assessment: Patient is a 80 year old male referred to physical therapy services with the diagnosis of increased falls and lower extremity weakness, in the setting of PD, RA, and OA. Patient presents with clinical signs and symptoms of poor balance, lower extremity weakness, and unsteady gait, consistent with his progressive PD diagnosis contributing to functional limitations of inability to independently transfer, ambulate, or care for himself. He is completely dependent on assist for sit to stand transfers and just 3-5 steps of ambulation today, and all toileting activities. He is not appropriate for return home safely at this time, and does require rehab to attempt improvement in his physical capabilities. He will not be appropriate to be alone, if he cannot improve enough to be able to sit to stand and ambulate safely independently. Patient is assessed as a High [id number] complexity based on the following: History: See comorbidities Examination: See above impairments and functional limitations Presentation: Complex Decision Making: Hard Goals: Goals X1 week 1. Supine-Sit independent 2. Sit-Supine independent 3. Sit-Stand CG x1 4. Stand-Sit CG x1 5. Bed-Chair CG x1 6. Chair-Bed CG x1 7. Gait 20 feet with RW, CG x1 8. Stairs 2, with rail, min assist x1 9. Independent with home exercise program 10. Balance fair with contact-guard with ambulation activities and dynamic transfers Plan of Care/Treatment Plan: 1-2x/day, 7 days/week x 1 week. Plan of care has been reviewed with the DRIVER MESSENGER providing the service under Physical Therapy direction. Initiate Physical Therapy intervention for strengthening, bed mobility, transfers, gait, stairs, balance training, use of assistive device. DISCHARGE RECOMMENDATIONS: Swing bed or SNF TREATMENT CODE/TIME: 30 minutes, [id number]
[2020-12-14] MEDS: Carbidopa 25/Levodopa 100 TAB PO ×3 (15:03→21:43)
--- NOTE | 2020-12-14 15:05 | PGE_ITS ---
Date of Service Date of service: 12/14/20 Time of Service: 15:05 Assessment and Plan Assessment and plan (1) Edema of both lower extremities: Status: Acute Assessment and plan: This may actually be a chronic finding. D/c IVF. R/o DVT - obtain venous dopplers. Also, obtain an echo. Could be due to water retention of methotrexate. If no DVT, would start TEDs. (2) Frequent falls: Status: Acute Assessment and plan: Agree that this is likely multifactoral (Parkinsonism , RA, OA). However, due to abnormal CT head, will await MRI brain to ensure that there is not another pathology contributing. PT on board. Continue fall precautions. Will likely benefit from SNF placement on discharge. Has a walker and a wheelchair at home. (3) Parkinsonism: Status: Acute Assessment and plan: Continue home Sinemet - perhaps the schedule may have to be adjusted. Will monitor. Continue working with physical therapy. Qualifiers: Parkinsonism type: Parkinson's disease Qualified Code(s): G20 - Parkinson's disease (4) Rheumatoid arthritis: Status: Acute Assessment and plan: On Humira [id number] (Due Tu) as well as Methotrexate 5mg po Qwk. No change in tx (5) Constipation: Status: Acute Assessment and plan: Continue prunes as well as prn bowel regimen (6) DVT prophylaxis: Status: Acute Assessment and plan: Hold chemical DVT ppx due to listed h/o intraocular hemorrhage. Once we have ruled out acute DVT, would start TEDs/SCDs. (7) Discharge planning issues: Status: Acute Assessment and plan: Full code PT consulted. Will likely require SNF placement Subjective Subjective Interval history since last seen: Mr Lau states he does not have any dizziness, chest pain, shortness of breath, nausea. Nursing endorses the patient having extreme difficulty with ambulation. States his BLE edema is chronic. He takes his sinemet at 0800, 1230, 1830 and at HS. Exam Narrative Exam Narrative: General: Anxious tremulous elderly male, A&Ox3, sitting at the edge of the bed HEENT: EOMI, MMM Heart: RRR, no m/r/g Lungs: CTAB Abdomen: soft, nontender, nondistended Extremities: 2+ BLE edema, symmetric Objective Last Vital Signs Temp 36.4 C L 12/14/20 08:14 Pulse 65 12/14/20 08:14 Resp 15 12/14/20 08:14 BP 169/78 H 12/14/20 08:14 Pulse Ox 98 12/14/20 08:14 Laboratory Results - last 24 hr 12/13/20 12/14/20 14:49 06:46 Sodium 139 Potassium 3.8 Chloride 105 Carbon Dioxide 29.3 Anion Gap 4.7 BUN 19 H Creatinine 0.8 Estimated GFR/1.73 m2 >= 60.00 Glucose 95 Calcium 8.8 SARS-CoV-2 (PCR) Negative
[2020-12-14 15:14] VITALS: BP 170/75; PULSE 64; RESP 18; TEMP 37.1; O2SAT 99
--- NOTE | 2020-12-14 18:03 | DI.VRAD_ITS ---
PROCEDURE INFORMATION: Exam: US Duplex Lower Extremity Veins, Bilateral Exam date and time: 12/14/2020 3:05 PM Age: 80 years old Clinical indication: Swelling (edema) of limb; Lower extremity, bilateral TECHNIQUE: Imaging protocol: Real-time duplex ultrasound of the extremities with 2-D issa scale, color Doppler flow and spectral waveform analysis with image documentation. Complete exam focused on the bilateral lower extremity veins. COMPARISON: CT Abdomen^ROUTINE ABDOMEN PELVIS ARTERIAL VENOUS (Adult) 03/17/2018 12:58 PM FINDINGS: Right deep veins: The common femoral, femoral and popliteal veins are patent without thrombus. Normal compressibility, augmentation response and Doppler waveforms. Visualized calf veins are patent. Right superficial veins: Saphenofemoral junction is patent without thrombus. Left deep veins: The common femoral, femoral and popliteal veins are patent without thrombus. Normal compressibility, augmentation response and Doppler waveforms. Visualized calf veins are patent. Left superficial veins: Saphenofemoral junction is patent without thrombus. Soft tissues: Unremarkable. IMPRESSION: No deep venous thrombus. Dictated and Authenticated by: Isha Carter MD. Ordering:HÉCTOR Lackey MD
[2020-12-14] MEDS: Simvastatin 10 MG TAB PO (19:31)
[2020-12-14] MEDS: Melatonin 3 MG TAB PO (21:42)
[2020-12-14] MEDS: Ibuprofen 200 MG TAB PO (21:42)
[2020-12-14 22:40] VITALS: BP 148/76; PULSE 52; RESP 18; TEMP 36.6; O2SAT 99
[2020-12-14] MEDS: LORazepam 2 MG/ML VIAL 1 MG IVP (23:43)
[2020-12-15] MEDS: Calcium Carbonate *TUMS* 500 MG CHEW 1000 MG PO (02:40)
[2020-12-15] MEDS: QUEtiapine 25 MG TAB PO (02:55)
[2020-12-15 07:00] VITALS: BP 154/71; PULSE 53; RESP 14; TEMP 36.5; O2SAT 98
[2020-12-15] MEDS: Cyanocobalamin 500 MCG TAB 1000 MCG PO (08:15)
[2020-12-15] MEDS: Omega-3 Fatty Acids 1000 MG CAP PO (08:15)
[2020-12-15] MEDS: Carbidopa 25/Levodopa 100 TAB PO ×3 (08:15→17:35)
[2020-12-15] MEDS: Sertraline 50 MG TAB PO (08:15)
[2020-12-15] MEDS: Sertraline 25 MG TAB PO (08:15)
[2020-12-15] MEDS: Normal Saline Flush 10 ML SYR IVP ×2 (08:16→21:30)
[2020-12-15] MEDS: Folic Acid 1 MG TAB PO (08:16)
--- NOTE | 2020-12-15 12:01 | PT.INTREAT ---
PT Notes Visit Reasons: Frequent Falls, Parkinsons 12/15/2020 SUBJECTIVE: Pt stating he would like to get up. His left hip is feeling stiff and uncomfortable. OBJECTIVE: Sit to stand: Max A x 1 Stand to sit: Max A x 1 GAIT Device: FWW Weight bearing: Full Assist: Min A x1 and 2 Distance: 15'x2 Deviation: Second person in room stood in front of patient giving patient visual cues wear to move his foot, counting steps ASSESSMENT: Requires quite a bit of effort to get out of chair and initiate gait. Utilizing counting of steps which was helpful to keep his gait smooth. He is pleasant and cooperative. PLAN: Continue current POC. Treatment time: 25 minutes [id number] Nasra Asif PTA Clinic location: [facility] [place], [place]
[2020-12-15 13:11] LABS: Bilirubin Negative (Negative); Blood Negative (Negative); Clarity Clear (Clear); Glucose Negative (Negative); Ketones Negative (Negative); Leukocyte Esterase Negative (Negative); Nitrite Negative (Negative); Urobilinogen 0.2 EU/dL (Up TO 0.2)
--- NOTE | 2020-12-15 14:07 | PGE_ITS ---
Date of Service Date of service: 12/15/20 Time of Service: 14:07 Assessment and Plan Assessment and plan (1) Edema of both lower extremities: Status: Acute Assessment and plan: This may actually be a chronic finding due to water retention from methotrexate. DVT ruled out. Await echo. (2) Frequent falls: Status: Acute Assessment and plan: Agree that this is likely multifactoral (Parkinsonism, RA, OA). However, due to abnormal CT head, will await MRI brain to ensure that there is not another pathology contributing. PT on board. Continue fall precautions. Will likely benefit from SNF placement on discharge. Daughter is interested in [facility]. Has a walker and a wheelchair at home. (3) Parkinsonism: Status: Acute Assessment and plan: Continue home Sinemet - perhaps the schedule may have to be adjusted. Consult neurology. Seroquel for night time delirium. Will monitor. Continue working with physical therapy. Qualifiers: Parkinsonism type: Parkinson's disease Qualified Code(s): G20 - Parkinson's disease (4) Rheumatoid arthritis: Status: Acute Assessment and plan: On Humira [id number] (Due Tu) as well as Methotrexate 5mg po Qwk. No change in tx (5) Constipation: Status: Acute Assessment and plan: Continue prunes as well as prn bowel regimen (6) DVT prophylaxis: Status: Acute Assessment and plan: DVT ruled out with a negative doppler. TEDS/SCDS ordered. Avoid chemical DVT ppx due to h/o intraocular hemorrhage. (7) Discharge planning issues: Status: Acute Assessment and plan: Full code PT consulted. Will likely require SNF placement Subjective Subjective Interval history since last seen: Restless last night and required a dose of seroquel. Feels relaxed today. Denies dizziness, chest pain, shortness of breath, nausea. States his bilateral ankles hurt somewhat. Daughter is wondering if we could get Dr Fisher to see him and if we could stop oxybutynin (he never received it here as it was written prn for drooling). They are concerned that oxybutynin may have had a behavioral side effect. Exam Narrative Exam Narrative: General: Anxious slightly tremulous elderly male, A&Ox2 (thinks it is June of 2020), sitting up in a chair talking to his family, reading [employer] HEENT: EOMI, MMM Heart: RRR, no m/r/g Lungs: CTAB Abdomen: soft, nontender, nondistended Extremities: 1+ BLE edema, symmetric, improved from yesterday. Objective Last Vital Signs Temp 36.5 C 12/15/20 07:00 Pulse 53 L 12/15/20 07:00 Resp 14 12/15/20 07:00 BP 154/71 H 12/15/20 07:00 Pulse Ox 98 12/15/20 07:00 Laboratory Results - last 24 hr 12/15/20 13:01 Urine Color Yellow Urine Clarity Clear Urine pH 7.0 Ur Specific Hughes 1.020 Urine Protein Negative Urine Ketones Negative Urine Blood Negative Urine Nitrite Negative Urine Bilirubin Negative Urine Urobilinogen 0.2 Ur Leukocyte Esterase Negative Urine Glucose Negative
[2020-12-15 15:38] VITALS: BP 169/89; PULSE 59; RESP 18; TEMP 36.7; O2SAT 99
[2020-12-15 20:13] VITALS: BP 160/92; PULSE 81; RESP 18; TEMP 37.5; O2SAT 97
[2020-12-15] MEDS: LORazepam 2 MG/ML VIAL 1 MG IVP (21:30)
[2020-12-16] VITALS (7 sets, daily range): BP systolic 90–179; BP diastolic 50–86; PULSE 65–83; RESP 16–18; TEMP 36.5–37.3; O2SAT 94–99
--- NOTE | 2020-12-16 09:06 | DI.US_ITS ---
APPROVED REPORT EXAM: Comprehensive 2D, Doppler, and color-flow Echocardiogram Patient Location: In-Patient Room/Bed: [address] Machine Feeder: Eda Chavez RDCS (AE) Indications: Bilateral leg edema Other Information Study Quality: Fair. Technically limited study due to body habitus, inability to position patient, un cooperative patient. Conclusion Left Ventricle : The left ventricle is normal size. There is normal left ventricular wall thickness. The left ventricular systolic function is normal. The left ventricular ejection fraction is within the normal range. There is normal LV segmental wall motion. LVEF is 50-55%. Right Ventricle : Right ventricle is grossly normal in size. Right ventricular systolic function is g rossly normal. Atria : The left atrium size is normal. The right atrium size is normal. Aortic Valve : Aortic valve is grossly normal in structure. Aortic valve is trileaflet. Trace aortic regurgitation. There is no aortic valvular stenosis. Mitral Valve : Mild mitral annular calcification. Trace mitral regurgitation. No evidence of mitral v alve stenosis. Great Vessels : The aortic root is normal in size. Ascending aorta is not well visualized. Due to poo r image quality, the IVC could not be assessed. Please see remainder of study for further details. Wall motion Left Ventricle The left ventricle is normal size. The left ventricular systolic function is normal. The left ventric ular ejection fraction is within the normal range. There is normal left ventricular wall thickness. T here is normal LV segmental wall motion. There is no ventricular septal defect visualized. LVEF is 50 -55%. Right Ventricle Right ventricle is grossly normal in size. Right ventricular systolic function is grossly normal. Atria The left atrium size is normal. The right atrium size is normal. The interatrial septum is intact wit h no evidence for an atrial septal defect. Aortic Valve Aortic valve is grossly normal in structure. Aortic valve is trileaflet. There is no aortic valvular stenosis. Trace aortic regurgitation. Mitral Valve Mild mitral annular calcification. No evidence of mitral valve stenosis. Trace mitral regurgitation. Tricuspid Valve The tricuspid valve is normal in structure. There is no tricuspid valve stenosis. Trace to mild tricu spid regurgitation. Pulmonic Valve Pulmonic valve is not well visualized. There is no pulmonic valvular stenosis. There is no pulmonic v alvular regurgitation. Great Vessels The aortic root is normal in size. Ascending aorta is not well visualized. Due to poor image quality, the IVC could not be assessed. Pericardium There is no pericardial effusion. 2D Dimensions IVSD d PLAX 0.96 cm M: 0.6-1.2 LV Vol A2C d MOD 75.7 mL LVPW d PLAX 0.94 cm M: 0.6 - 1.2 LV Vol A4C d MOD 70.0 mL LVID d PLAX 4.26 cm M: 4.2 - 5.8 LA vol/ BSA A2C s A-L 17.5 mL/m2 LVDs 3.00 cm M: 2.5 - 4.0 LA Area A2C s MOD 12.50 cm2 Ao Root d 2.35 cm M: 3.1 - 3.7 LV EF A4C MOD 50.1 % LV EF Teichholz 55.7 % LV EF A2C MOD 55.0 % LVEF (Sandhu's) 52.27 % M: 52 - 72 LV EF Biplane MOD 52.3 % LV Volume 61.67 mL M: 62 - 150 SV 40.66 mL LV Volume Index 36.27 mL/m2 M: 34 - 74 SV Index 23.80 mL/m2 LV Vol Biplane MOD 77.8 mL FS 28.75 % M-Mode TAPSE 1.93 cm (M/F) >1.7 LV Diastology MV E' medial 0.061 (>0.07 m/s) E/A Ratio 0.7 LV E/e MED 9.65 (<14) MV E Vmax 0.59 (0.4-1.3 m/s) MV E' lateral 0.076 (>0.1 m/s) MV A Vmax 0.80 (0.4-1.3 m/s) LV E/e LAT 7.75 (<14) MV E/A Ratio 0.73 MV E/E' medial 9.65 MV E/E' lateral 7.78 Aortic Valve LVOT Area 2.78 cm2 AoV Area Vmax 2.73 cm2 LVOT Vmax 1.50 m/s AoV Area/ BSA (Vmax) 1.60 cm2/m2 LVOT Mean Mike. 0.97 m/s NELSON Mean Mike. 2.48 cm2 LVOT Peak Grad 9.0 mmHg NELSON Mean Mike. Index 1.45 cm2/m2 LVOT Mean Grad 4.5 mmHg LVOT VTI 0.313 m LVOT Diam s 1.85 cm AoV Vmax 1.53 m/s Velocity Ratio 0.98 AoV Mean Mike. 1.09 m/s AoV Peak Grad 9.3 mmHg LVOT SV 86.90 mL AoV Mean Grad 5.2 mmHg AoV VTI 0.313 m AoV Area VTI 2.77 cm2 AoV Area/ BSA (VTI) 1.62 cm/m2 Mitral Valve MV DT 337 (160-240 msec) MV PHT 98 msec MV Area PHT 2.25 cm2 MV VTI 0.271 m MV Area VTI 3.21 (4.0-6.0 cm2) Pulmonary Valve PV Vmax 1.41 (0.5-1.5 m/s) RVOT Peak Gr. 6.22 mmHg PV Peak Grad 7.9 mmHg RVOT Mean Gr. 3.00 mmHg PV Mean Grad 4.0 mmHg RVOT VTI 0.184 m PV VTI 0.257 m RVOT Vmax 1.25 m/s Tricuspid Valve TR Peak Grad 18.9 mmHg TR Vmax 2.18 m/s
[2020-12-16] MEDS: Carbidopa 25/Levodopa 100 TAB PO ×3 (10:10→20:16)
[2020-12-16] MEDS: Cyanocobalamin 500 MCG TAB 1000 MCG PO (10:15)
[2020-12-16] MEDS: Sertraline 50 MG TAB PO (10:15)
[2020-12-16] MEDS: Sertraline 25 MG TAB PO (10:15)
[2020-12-16] MEDS: Zinc Sulfate 220 MG TAB PO (10:15)
[2020-12-16] MEDS: Omega-3 Fatty Acids 1000 MG CAP PO (10:15)
[2020-12-16] MEDS: Folic Acid 1 MG TAB PO (10:15)
--- NOTE | 2020-12-16 10:20 | DI.MRI_ITS ---
Exam(s) MR BRAIN WO EXAM: MR BRAIN WO CLINICAL HISTORY: Falls. Questionable infarct on CT. TECHNIQUE: Multiplanar multisequence MRI of the brain was performed. COMPARISON: CT CT HEAD WO from 12/13/[address] HEAD WO from 12/13/2020 FINDINGS: The examination is limited due to patient motion artifact. VENTRICLES AND EXTRA AXIAL SPACES: Normal in size and morphology for the patient's age. MIDLINE SHIFT: None. CEREBRAL PARENCHYMA: No focus of restricted diffusion to suggest acute infarct. No space-occupying le onofre identified. There are multiple areas of hyperintense signal on the T2 and FLAIR images in the wh ite matter most consistent with chronic microvascular ischemic disease. HEMORRHAGE: None. BRAINSTEM/CEREBELLUM: Normal. CALVARIUM: Normal. VISUALIZED PARANASAL SINUSES/MASTOIDS:Clear. S[place] OF GONZALEZ: Normal flow void. PITUITARY GLAND: Unremarkable. OTHER FINDINGS: None. IMPRESSION: 1. No evidence of an acute infarct. 2. Chronic microvascular ischemic disease. DATA REPOSITORY:
--- NOTE | 2020-12-16 11:20 | INITIAL_ITS ---
- If Service Date Differs Date of service: 12/16/20 Time of Service: 11:20 Care Management Initial Assess REASON FOR HOSPITALIZATION:: Frequent falls, Parkinson's PAST MEDICAL HISTORY/PAST SURGICAL HISTORY:: Bilateral chronic knee pain. Carpal tunnel syndrome on both sides. based on sx; rheum recommends no surgery. Confusion. 10/31/20 Resolved with decrease of Oxybutnin to QD. Cubital tunnel syndrome on left. based on sx; no surgery per rheum. 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 Hyperlipidemia. Hypertension. Insomnia. Ocular hemorrhage. Osteoarthritis of knee (10/01/14). Overactive bladder. Parkinsonism. 10/29/14; [facility] (SEE SCANNED). Prostate cancer. RA (rheumatoid arthritis). Retinal detachment. multiple, bilateral. Sialorrhea. 10/29/14; [facility]; (SEE SCANNED). Spinal stenosis. lumbar with h/o radiculopathy. History of cataract removal with insertion of prosthetic lens. LEFT REMOVAL; LEFT RETINAL BUCKLE W/VITRIECTOMY; RIGHT RETINAL DETACHMENT W/VITRIECTOMY; YAG LASER TX CLOUDED LENS. History of spinal surgery. Lumbar 2012. Status post carpal tunnel release. LEFT. Status post foot surgery. Status post hip replacement. RIGHT. Status post prostatectomy. Status post total knee replacement. Bilateral. Status post transurethral resection of prostate PREVIOUS FUNCTIONAL STATUS/SOCIAL/FAMILY SUPPORTS:: Wade resides in [place], [place]. He has a supportive family including his DPOA and daughter, Robina and his caregiver, Radha. He requires support with most ADLs due to Parkinsonism. CURRENT FUNCTIONAL STATUS:: Wade is sitting in his chair, sleeping. His daughter, Robina is sitting with him on her tablet. continues to follow. ADVANCE DIRECTIVES:: DPOA: Robina Lau Has patient been provided with info about the portal/API?: Yes Did the patient sign up for the portal?: Yes (Previously) CODE STATUS:: Full Code INSURANCE COVERAGE / FINANCIAL ISSUES:: BC/BS. Medicare CURRENT HOME/COMMUNITY SERVICES/EQUIPMENT:: Caregiver, raised toilet seat, tub seat/bench, FWW, home health aide, home health nurse PRIMARY CARE PHYSICIAN:: Willie Hodges POTENTIAL DISCHARGE NEEDS:: SNF [id number] PATIENT/FAMILY EDUCATION NEEDS:: Review of discharge instructions, discuss care needs for discharge. ANTICIPATED BARRIERS TO DISCHARGE:: None identified. TRANSPORTATION:: TBD by disposition. PLAN:: Wade continues to be closely monitored and treated, referral sent to [facility]. CM continues to follow. SNF discussion to follow tomorrow.
[2020-12-16] MEDS: Lactated Ringers 500 ML IV (14:25)
--- NOTE | 2020-12-16 14:25 | W.PM.PROGNOT ---
Date of Service Date of service: 12/16/20 Time of Service: 14:26 Assessment and Plan Assessment and plan (1) Hypotension: Status: Acute Assessment and plan: Current episode is likely at least partially vagal due to constipation. Will provide bowel meds. Hydrate gently. The orthostatic component likely has to do with Parkinsonism. Will trial IVF for this as well. May require midodrine. May be the reason for falls as well. (2) Frequent falls: Status: Acute Assessment and plan: Multifactoral (Parkinsonism, orthostasis, RA, OA). MRI brain negative PT on board. Hydrate. Continue fall precautions. Will likely benefit from SNF placement on discharge. Has a walker and a wheelchair at home. (3) Parkinsonism: Status: Acute Assessment and plan: Continue home Sinemet - perhaps the schedule may have to be adjusted. Await neurology consult. Seroquel for night time delirium - the patient refused this last night. Ativan appears to have made the patient too sedated. Will monitor. Continue working with physical therapy. Qualifiers: Parkinsonism type: Parkinson's disease Qualified Code(s): G20 - Parkinson's disease (4) Edema of both lower extremities: Status: Chronic Assessment and plan: This may actually be a chronic finding due to water retention from methotrexate. DVT ruled out. Echo with preserved EF and no evidence of pulmonary hypertension. Continue TEDs (5) Rheumatoid arthritis: Status: Acute Assessment and plan: On Humira [id number] (Due ) as well as Methotrexate 5mg po Qwk. No change in tx (6) Constipation: Status: Acute Assessment and plan: To receive dulcolax now. Continue prunes as well as prn bowel regimen (7) DVT prophylaxis: Status: Acute Assessment and plan: TEDS/SCDS Avoid chemical DVT ppx due to h/o intraocular hemorrhage. (8) Discharge planning issues: Status: Acute Assessment and plan: Full code PT consulted. Will require SNF placement Subjective Subjective Interval history since last seen: I got called to the patient's bedside because of his BP of 90/50 while supine. Additionally, nurses noted a new stereotypic tongue movement. The patient states he feels off. He also states he feels like he needs to have a BM. His last BM was on Wednesday. He does not feel dizzy, have chest pain, shortness of breath or nausea. He was found to have orthostasis today. Last night, the patient was restless/confused. HE did not take either sinement or seroquel. HE ended up getting a dose of lorazepam 1 mg at 9 pm. Per nurses he was asleep at 3 am, but it's not clear how much the ativan helped. Exam Narrative Exam Narrative: General: Anxious frail male who is laying in bed, and I do observe the stereotypic tongue movement. Speaking very quietly. HEENT: EOMI, MMM Heart: RRR, no m/r/g Lungs: CTAB Abdomen: soft, nontender, nondistended Extremities: 1+ BLE edema, symmetric Objective Last Vital Signs Temp 36.6 C 12/16/20 14:01 Pulse 68 12/16/20 14:01 Resp 16 12/16/20 14:01 BP 90/50 L 12/16/20 14:01 Pulse Ox 96 12/16/20 14:01 Objective Narrative Objective Narrative: echo: Left Ventricle : The left ventricle is normal size. There is normal left ventricular wall thickness. The left ventricular systolic function is normal. The left ventricular ejection fraction is within the normal range. There is normal LV segmental wall motion. LVEF is 50-55%. Right Ventricle : Right ventricle is grossly normal in size. Right ventricular systolic function is grossly normal. Atria : The left atrium size is normal. The right atrium size is normal. Aortic Valve : Aortic valve is grossly normal in structure. Aortic valve is trileaflet. Trace aortic regurgitation. There is no aortic valvular stenosis. Mitral Valve : Mild mitral annular calcification. Trace mitral regurgitation. No evidence of mitral valve stenosis. Great Vessels : The aortic root is normal in size. Ascending aorta is not well visualized. Due to poor image quality, the IVC could not be assessed. Please see remainder of study for further detai MRI brain: 1. No evidence of an acute infarct. 2. Chronic microvascular ischemic disease.
[2020-12-16 14:51] LABS: Abs Immature Grans 0.04 10^3/uL (0.0-0.06); Absolute Basophil Count 0.04 10^3/uL (0.0-0.2); Absolute Eosinophil Count 0.08 10^3/uL (0.0-0.7); Absolute Monocyte Count 0.87 10^3/uL (0.1-0.8); Absolute Neutrophil Count 5.32 10^3/uL (1.2-6.7); Basophils % 0.5; HCT 39.4 % (40.0-50.0); HGB 13.3 g/dL (13.5-17.5); Immature Grans % 0.5; Lymphocytes % 19.1; MCH 33.4 pg (27.0-33.0); MCHC 33.8 % (32.0-36.0); MPV 9.1 fL (8.0-11.0); Monocytes % 11.1; Neutrophils % 67.8; Nucleated RBC 0 %; Platelet Count 174 10^3/uL (130-400); RBC 3.98 10^6/uL (4.36-5.78); RDW 13.2 % (11.8-14.1); RDW-SD 48.1 fL; WBC 7.85 10^3/uL (4.4-10.8)
[2020-12-16 14:53] LABS: Lactate 1.6 mmol/L (0.6-1.4)
[2020-12-16 15:04] LABS: Magnesium 1.8 mg/dL (1.8-2.4)
[2020-12-16 15:11] LABS: Anion Gap 6.1 mmol/L (3-11); BUN 24 mg/dL (7-18); CO2 29.9 mmol/L (21.0-32.0); CREATININE 1.3 mg/dL (0.70-1.30); Calcium 9.3 mg/dL (8.5-10.1); Chloride 101 mmol/L (98-107); Estimated GFR 53.39 (mL/min/1.73m2); Glucose 108 mg/dL (74-106); Potassium 4.4 mmol/L (3.5-5.1); Sodium 137 mmol/L (136-145); Troponin I < 0.05 ng/mL (<0.06)
[2020-12-16 15:23] LABS: Procalcitonin < 0.1 ng/mL
[2020-12-16] MEDS: Lactated Ringers 1,000 ML 75 ML IV (15:34)
--- NOTE | 2020-12-16 15:41 | PT.INTREAT ---
Date of service: 12/16/20 Time of Service: 13:45 PT Notes Visit Reasons: Frequent Falls, Parkinsons Inpatient Physical Therapy Treatment Note [facility] Date: 12/16/2020 PRECAUTIONS: Fall, Parkinson's SUBJECTIVE: Wade consents to transferring from chair to bed. OBJECTIVE: Patient not available for a.m. PT session, as he was at MRI testing. In p.m., patient is noted to be speaking very softly and is difficult to understand at times. He does not appear to wake fully throughout session, keeping his eyes closed through the majority. Nursing present throughout session. PAIN: No c/o pain BED MOBILITY/TRANSFERS Sit-supine: Max A x2 with HOB flat Sit-stand: Max A x2 Stand-sit: Max A x2 Chair-bed: Max A x2 stand pivot transfer THEREX: Hold as patient was unable to wake fully. VITALS: Vital signs obtained by nursing, BP found to be low in B UE. ASSESSMENT: Patient's ability to participate in PT session appeared limited due to an inability to wake completely. He required Max A x2 for all transfers and bed mobility this afternoon due to drowsiness. Held further PT interventions, per nursing. PLAN: Continue with gait and transfer training and global strengthening for improved mobility and activity tolerance, when appropriate. TREATMENT CODE/TIME: 15 minutes; 50410 (13:45)
[2020-12-16] MEDS: Bisacodyl 10 MG SUPP PR (15:42)
--- NOTE | 2020-12-16 16:45 | W.NEUROCONSU ---
Date of service: 12/16/20 Time of Service: 16:45 Assessment and Plan Assessment and plan (1) Frequent falls: Status: Acute (2) Memory loss: Status: Acute (3) Parkinsonism: Status: Acute Assessment and plan: Mr. Lau is a 80 year-old, right-handed man who was admitted with the following: #1. Parkinsons, weakness, and falls complicated by severe OA/RA. Let's increase Sinemet to 25/250 TID + 25/100mg HS. ADRs discussed including worsening confusion/agitation, however, benefits would be increased mobility. Agree with aggressive PT as well as ST for dysphagia/hypophonia. #2. Sundowning in the setting of moderate-stage dementia. Per report, he has been accepted to [facility] for management of sundowning if need be as currently can't go to SNF with current safety concerns. Will try with Seroquel 50mg HS tonight. If he refuses to take, then we need to start offering earlier in the day. Discussed with him and Robina about need to take his medications correctly so that he can get to rehab sooner and then potentially back to home. Daughter has single caregiver at home currently, but not manager multimedia, and no longer able to transfer him. Qualifiers: Parkinsonism type: Parkinson's disease Qualified Code(s): G20 - Parkinson's disease History of Present Illness History of Present Illness Chief Complaint: AMS, inability to be care for at home Narrative: Handedness: right. HPI: Mr. Lau is a 80 year-old man with very significant, severe rheumatoid and osteoarthritis, which causes significant stiffness, especially in his hands, elbows and shoulders along with Parkinsons and memory loss/dementia. Mr. Lau was admitted on 12/13/20 for increased falls, weakness, and inability to be cared for at home. I last saw him in clinic on 11/25/20. He has had a slow decline over the years both physically and cognitively. He has been having more frequent and increased confusion over time. This was in part complicated by oxybutynin which he was using for drooling. His las dose was 12/13/20. His drooling has not returned. At the time of his last visit, he was actually on Sinemet 25/100mg x2 TID + 1x25/100 mg HS. Since that visit, we had discussed increasing to 1x25/250mg TID + 1x25/100mg HS. Daughter Robina never picked up new Rx prior to admission. He is currently getting old dose 1.5x25/100mg TID + 1x25/100mg HS. Since admission, Mr. Lau has been sundowning, agitation, refusing medications, and trying to get out of bed. He was given seroquel 25mg HS on 12/14/20 at 1130pm with modest benefit. He refused Seroquel 12/15/20 pm. Was instead given lorazepam 1mg at 2100. With this he was able to sleep, but was quite tired most of the morning. This afternoon, he became hypotensive - improved with IVF. -Labs (12/12/20): Na 135 (this has since normalized), B12 1621, UA ok -CTH (12/13/20): no acute findings. I reviewed these images personally and this is my personal interpretation. -MRI brain (12/16/20): no acute findings. moderate-severe chronic small vessel disease changes. I reviewed these images personally and this is my personal interpretation. 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 Hyperlipidemia Hypertension Insomnia Ocular hemorrhage Osteoarthritis of knee (10/01/14) Overactive bladder Parkinsonism 10/29/14; [facility] (SEE SCANNED) Prostate cancer RA (rheumatoid arthritis) Retinal detachment multiple, bilateral Sialorrhea 10/29/14; [facility]; (SEE SCANNED) Spinal stenosis lumbar with h/o radiculopathy Surgical History History of cataract removal with insertion of prosthetic lens LEFT REMOVAL; LEFT RETINAL BUCKLE W/VITRIECTOMY; RIGHT RETINAL DETACHMENT W/VITRIECTOMY; YAG LASER TX CLOUDED LENS History of spinal surgery Lumbar 2013 Status post carpal tunnel release LEFT Status post foot surgery Status post hip replacement RIGHT Status post prostatectomy Status post total knee replacement Bilateral Status post transurethral resection of prostate Family History Mother Essential hypertension Parkinson disease Father Personal history of malignant neoplasm PANCREATIC Heart disease CAD Parkinson disease Grandfather Personal history of malignant neoplasm LEUKEMIA Grandfather , UNKNOWN No problems noted. Grandmother No problems noted. Grandmother Essential hypertension Stroke Social History Smoking/Tobacco Use Status: Never Smoking risk assessment performed?: Yes Alcohol Intake: current Alcohol Intake frequency: 0-2 drinks per day Substance use type: does not use Duration: 15-30 minutes/day Frequency: 3-4 times per week Seatbelt use: always Do you feel safe at home: Yes Do you feel safe in your relationship?: Yes Visit Medication and Allergies Active Medications Generic Name Dose Route Start Last Admin Trade Name Freq PRN Reason Stop Dose Admin Acetaminophen 650 mg 12/13/20 15:24 Acetaminophen 325 Mg Tab PO Q4H PRN PRN Bisacodyl 5 mg 12/14/20 15:12 Bisacodyl 5 Mg Tabec PO DAILY PRN PRN Calcium Carbonate 1,000 mg 12/15/20 02:22 12/15/20 02:40 Calcium Carbonate *Tums* 500 Mg Chew PO 1,000 mg QID PRN PRN Administration Carbidopa/Levodopa 1 tab 12/14/20 22:00 12/15/20 21:42 Carbidopa 25/Levodopa 100 Tab PO Not Given HS YARI Carbidopa/Levodopa 1 tab 12/16/20 16:40 Carbidopa 25/Levodopa 250 Tab PO TID YARI Cyanocobalamin 1,000 mcg 12/14/20 08:30 12/16/20 10:15 Cyanocobalamin 500 Mcg Tab PO 1,000 mcg DAILY YARI Administration Dimethicone/Zinc Oxide 0 gm 12/13/20 15:24 Dianne Protect Cream 142 Gm Tube TP PRN PRN Docusate Sodium 100 mg 12/14/20 15:12 Docusate Sodium 100 Mg Cap PO BID PRN PRN Fish Oil 1,000 mg 12/14/20 08:30 12/16/20 10:15 [place]-3 Fatty Acids 1000 Mg Cap PO 1,000 mg DAILY YARI Administration Folic Acid 1 mg 12/14/20 08:30 12/16/20 10:15 Folic Acid 1 Mg Tab PO 1 mg DAILY YARI Administration Sodium Chloride 500 mls @ 0 mls/hr 12/13/20 13:03 Saline 500ml Bag IV PRN PRN As Directed Sodium Chloride 500 mls @ 0 mls/hr 12/13/20 14:22 Saline 500ml Bag IV PRN PRN As Directed Ringer's Solution 1,000 mls @ 75 mls/hr 12/16/20 14:45 12/16/20 15:34 IV 75 mls/hr INFUSION YARI Administration IV Miscellaneous Supplies 1 each 12/13/20 14:30 Iv Access IV DIRECTED YARI Ibuprofen 200 mg 12/13/20 22:00 12/15/20 21:42 Ibuprofen 200 Mg Tab PO Not Given HS YARI Loperamide HCl 2 mg 12/13/20 16:00 Loperamide 2 Mg Cap PO DAILY PRN PRN Melatonin 3 mg 12/14/20 22:00 12/15/20 21:42 Melatonin 3 Mg Tab PO Not Given HS YARI Methotrexate Sodium 5 mg 12/17/20 08:30 Methotrexate 2.5 Mg Tab PO Q7D YARI Polyethylene Glycol 17 gm 12/13/20 15:24 Polyethylene Glycol 3350 17 Gm Packet PO DAILY PRN PRN Constipation Quetiapine Fumarate 25 mg 12/15/20 07:59 Quetiapine 25 Mg Tab PO HS PRN PRN Sennosides 1 tab 12/14/20 15:12 Senna Tab PO BID PRN PRN Sertraline HCl 25 mg 12/14/20 08:30 12/16/20 10:15 Sertraline 25 Mg Tab PO 25 mg DAILY YARI Administration Sertraline HCl 50 mg 12/14/20 08:30 12/16/20 10:15 Sertraline 50 Mg Tab PO 50 mg DAILY YARI Administration Simvastatin 10 mg 12/13/20 20:00 12/15/20 21:41 Simvastatin 10 Mg Tab PO Not Given QPM YARI Sodium Chloride 0 ml 12/13/20 14:22 12/15/20 21:30 Normal Saline Flush 10 Ml Syr IVP 10 ml PRN PRN Administration Zinc Sulfate 1 mg 12/16/20 08:30 12/16/20 10:15 Zinc Sulfate 220 Mg Tab PO 1 mg [id number] YARI Administration Allergies POLLEN Allergy (Unknown, Uncoded 12/13/20 12:47) dust Adverse Reaction (Unknown, Uncoded 12/13/20 12:47) PND, RUNNY NOSE Exam Narrative Exam Narrative: Physical Exam: Sinemet taken ~4hours prior Constitutional: Patient of apparent stated age, well nourished, well developed, no acute distress, mild hypomima Neck: Supple, no meningismus CV: RRR, S1, S2, no murmur Resp: CTAB Abd: Soft, nontender, nondistended Neuro: MS/Language/Speech: Alert, oriented, clear language (fluency and comprehension), mild dysarthria; moderate hypophonia CN: EOMI, visual smith full, trigeminal sensation intact, no facial asymmetry, hearing intact Motor: Bilateral wrist rigidity, R>L, severe; ?cogwheeling. Mild diffuse bradykinesia, worse in the LE. FMM reduced bilaterally, R=L, no pronator drift. 4/5 L hip flexor and 3-/5 R hip flexor. 5/5 all else in LE. No resting tremor today. Bilateral hand atrophy. Minimal bilateral UE postural tremor and dysmetria. Reflexes: hyporeflexic throughout, downgoing toes Coordination: Finger to nose performed with subtle bilateral UE dysmetria Gait: not tested Results Last Vital Signs Temp 36.9 C 12/16/20 15:19 Pulse 83 12/16/20 15:19 Resp 17 12/16/20 15:19 BP 142/76 H 12/16/20 15:19 Pulse Ox 99 12/16/20 15:19 Labs Result diagrams: 12/16/20 14:43 12/16/20 14:43 Labs: Laboratory Results - last 24 hr 12/16/20 12/16/20 12/16/20 14:43 14:43 14:43 WBC RBC Hgb Hct MCV MCH MCHC RDW Plt Count MPV Immature Gran % Neutrophils % Lymphocytes % Monocytes % Eosinophils % Basophils % Nucleated RBC % Absolute Neutrophils Absolute Lymphocytes Absolute Monocytes Absolute Eosinophils Absolute Basophils VBG Lactate 1.6 H Sodium 137 Potassium 4.4 Chloride 101 Carbon Dioxide 29.9 Anion Gap 6.1 BUN 24 H Creatinine 1.3 D Estimated GFR/1.73 m2 53.39 Glucose 108 H Calcium 9.3 Magnesium 1.8 Troponin I < 0.05 Procalcitonin < 0.1 12/16/20 14:43 WBC 7.85 RBC 3.98 L Hgb 13.3 L Hct 39.4 L MCV 99.0 H MCH 33.4 H MCHC 33.8 RDW 13.2 Plt Count 174 MPV 9.1 Immature Gran % 0.5 Neutrophils % 67.8 Lymphocytes % 19.1 Monocytes % 11.1 Eosinophils % 1.0 Basophils % 0.5 Nucleated RBC % 0 Absolute Neutrophils 5.32 Absolute Lymphocytes 1.50 Absolute Monocytes 0.87 H Absolute Eosinophils 0.08 Absolute Basophils 0.04 VBG Lactate Sodium Potassium Chloride Carbon Dioxide Anion Gap BUN Creatinine Estimated GFR/1.73 m2 Glucose Calcium Magnesium Troponin I Procalcitonin
--- NOTE | 2020-12-16 17:29 | PHA.REVIEW ---
Pharmacy Admission Review - Admission Clinical Review (Last Reviewed 12/13/20 @ 17:39 by Lalit Wells MD) Hypotension (Acute) Discharge planning issues (Acute) DVT prophylaxis (Acute) Frequent falls (Acute) Constipation (Acute) Parkinsonism (Acute) Rheumatoid arthritis (Acute 10/01/14) POLLEN Allergy (Unknown, Uncoded 12/13/20 12:47) dust Adverse Reaction (Unknown, Uncoded 12/13/20 12:47) PND, RUNNY NOSE Resuscitation Status Full Code Height 5 ft 6 in Weight 62.6 kg - Renal Dosing Renal Dosing: BUN 24 mg/dL (7-18) H 12/16/20 14:43 Creatinine 1.3 mg/dL (0.70-1.30) D 12/16/20 14:43 - Anticoagulation Anticoagulation: Hgb 13.3 g/dL (13.5-17.5) L 12/16/20 14:43 Hct 39.4 % (40.0-50.0) L 12/16/20 14:43 Plt Count 174 10^3/uL (130-400) 12/16/20 14:43 Creatinine 1.3 mg/dL (0.70-1.30) D 12/16/20 14:43 - Relevant Labs Sodium 137 mmol/L (136-145) 12/16/20 14:43 Potassium 4.4 mmol/L (3.5-5.1) 12/16/20 14:43 Chloride 101 mmol/L (98-107) 12/16/20 14:43 Magnesium 1.8 mg/dL (1.8-2.4) 12/16/20 14:43 - DM Control DM Control: Glucose 108 mg/dL (74-106) H 12/16/20 14:43 - Heart Failure/MN Heart Failure/MN: Troponin I < 0.05 ng/mL (<0.06) 12/16/20 14:43 - BP Control BP Control: Blood Pressure [Standing] 118/62 Blood Pressure [Sitting] 124/74 Blood Pressure [Supine] 164/83 Blood Pressure 142/76 Blood Pressure 90/50 Blood Pressure 130/81 Blood Pressure 179/86
[2020-12-16] MEDS: Ibuprofen 200 MG TAB PO (20:15)
[2020-12-16] MEDS: Senna TAB 1 TAB PO (20:16)
[2020-12-17 01:56] LABS: Bilirubin Negative (Negative); Blood Negative (Negative); Clarity Clear (Clear); Glucose Negative (Negative); Ketones Trace mg/dL (Negative); Leukocyte Esterase Negative (Negative); Nitrite Negative (Negative); Specific Gravity 1.025 (1.005-1.025); Urobilinogen 0.2 EU/dL (Up TO 0.2)
[2020-12-17] MEDS: Lactated Ringers 1,000 ML 75 ML IV (04:39)
[2020-12-17 04:43] VITALS: BP 162/77; PULSE 73; RESP 17; TEMP 36.6; O2SAT 97
[2020-12-17 07:30] LABS: Abs Immature Grans 0.02 10^3/uL (0.0-0.06); Absolute Basophil Count 0.02 10^3/uL (0.0-0.2); Absolute Eosinophil Count 0.12 10^3/uL (0.0-0.7); Absolute Lymphocyte Count 1.71 10^3/uL (1.2-3.4); Absolute Monocyte Count 0.67 10^3/uL (0.1-0.8); Absolute Neutrophil Count 5.11 10^3/uL (1.2-6.7); Basophils % 0.3; Eosinophils % 1.6; HCT 35.3 % (40.0-50.0); HGB 12.2 g/dL (13.5-17.5); Immature Grans % 0.3; Lymphocytes % 22.4; MCH 33.1 pg (27.0-33.0); MCHC 34.6 % (32.0-36.0); MCV 95.7 fL (80-95); MPV 9.6 fL (8.0-11.0); Monocytes % 8.8; Neutrophils % 66.6; Nucleated RBC 0 %; Platelet Count 175 10^3/uL (130-400); RBC 3.69 10^6/uL (4.36-5.78); RDW 13.2 % (11.8-14.1); RDW-SD 46.1 fL; WBC 7.65 10^3/uL (4.4-10.8)
[2020-12-17 07:46] VITALS: BP 181/77; PULSE 76; RESP 18; TEMP 37; O2SAT 96
[2020-12-17 08:12] LABS: Anion Gap 8.7 mmol/L (3-11); BUN 23 mg/dL (7-18); CO2 27.3 mmol/L (21.0-32.0); Calcium 9.2 mg/dL (8.5-10.1); Chloride 101 mmol/L (98-107); Glucose 108 mg/dL (74-106); Magnesium 1.6 mg/dL (1.8-2.4); Potassium 3.9 mmol/L (3.5-5.1); Sodium 137 mmol/L (136-145)
[2020-12-17] MEDS: Folic Acid 1 MG TAB PO (08:14)
[2020-12-17] MEDS: Sertraline 50 MG TAB PO (08:14)
[2020-12-17] MEDS: Cyanocobalamin 500 MCG TAB 1000 MCG PO (08:14)
[2020-12-17] MEDS: Sertraline 25 MG TAB PO (08:14)
[2020-12-17] MEDS: Omega-3 Fatty Acids 1000 MG CAP PO (08:14)
[2020-12-17] MEDS: Acetaminophen 325 MG TAB 650 MG PO (08:41)
[2020-12-17] MEDS: MAGNESIUM SULFATE 2 GM/50 ML BAG IVPB (09:41)
--- NOTE | 2020-12-17 11:07 | CMPROGNOTE_ITS ---
Care Management Progress Note S/O: Wade remains acute at [facility]; with medications changes and close monitoring. Scheduled seroquel started yesterday with good effect per MD. Palliative consult ordered; CM notified PC office that Robina needed to be included in code status conversation. MAGGI spoke with Robina re: the following: SNF options: Robina chose [facility], [facility], [facility], [facility]. CM faxed referral to chosen facilities. [facility] referral pending-awaiting determination though concerned about that limited mobility. Robina shared concerns re: her father being more mentally clear on IVF and needing to be fed during meals. MAGGI spoke with RNCCCarolann who confirmed Wade is currently being fed during meals. A: 80 year old male admitted to [facility] 12/13/20 for frequent falls, Parkinsonism P: SNF referrals pending, as well as [facility] referral. Transportation to be determined by disposition. CM continues to follow.
--- NOTE | 2020-12-17 12:49 | PTTR_ITS ---
Date of service: 12/17/20 Time of Service: 10:35 PT Notes Visit Reasons: Frequent Falls, Parkinsons Inpatient Physical Therapy Treatment Note [facility] Date: 12/17/2020 PRECAUTIONS: Fall, Parkinson's, Dementia SUBJECTIVE: Wade is agreeable to participating in PT. He states that he will try. OBJECTIVE: Patient continues to speak very softly today. PAIN: Patient c/o pain in R hip with gait training, Aqua-K pad applied to R hip at end of session BED MOBILITY/TRANSFERS Sit-stand: Max A x2 in a.m.; Mod A + Max A in p.m. Stand-sit: Max A x2 in a.m.; Mod A x2 in p.m. GAIT Assistive Device: FWW in a.m.; FWW for ~10', ZIPPER MACHINE OPERATOR x2 x~10' Weight bearing: Full Assist: Min A Distance: 15' in a.m.; 20' in p.m. Deviation: Max cueing to keep eyes open, assist with FWW management, and counting steps for improved beba THEREX: Patient was instructed in a LE and UE strengthening program, completed in a seated position, as per flow sheet. R > L LE weakness noted. TOILETING: Patient was incontinent of urine, requiring Max A x2 ASSESSMENT: Patient was able to participate in gait training, although requires max cueing to keep eyes open and for improved beba, and requires assist for FWW management. He appears to tolerate ZIPPER MACHINE OPERATOR better than FWW for support with gait training. PLAN: Continue with transfer and gait training, as well as global strengthening, as tolerated. TREATMENT CODE/TIME: Session 1: 30 minutes; 49219 x2 (10:35) Session 2: 30 minutes; 63043, [id number] (13:40)
--- NOTE | 2020-12-17 13:53 | W.NUTCONSULT ---
Date of service: 12/17/20 Time of Service: 13:53 Nutritional Consult ASSESSMENT: 80 year old male admitted with hypotension and failure to thrive in home environment. PMH: Parkinson's Dx, RA, OA with low but stable weight. Following regular meal plan with poor po intake since admit. EMERGENCY MEDICINE PHYSICIAN ASSISTANT consult pending. Staff has been assisting in feeding Wade. Noted to be full code, no polst on record. If continues to have poor nutrient/fluid intake will need to discuss nutrition support. Estimated Needs: [id number] kcal, 66-76 g protein NUTRITIONAL DIAGNOSIS: Low weight Poor nutrient intake INTERVENTION: Continue current meal plan, provide ensure BID as meal supplements MONITORING AND EVALUATION: weight, po intake, labs Time Spent in Nutritional Counseling and Treatment: 5
--- NOTE | 2020-12-17 14:59 | W.PM.PROGNOT ---
Date of Service Date of service: 12/17/20 Time of Service: 14:59 Assessment and Plan Assessment and plan (1) Parkinsonism: Status: Acute Assessment and plan: Seen by Dr. Fisher yesterday she recommended increasing the Sinemet to 25/250 3 times daily and 25/100 at at bedtime. Continue with aggressive PT and speech therapy. Qualifiers: Parkinsonism type: Parkinson's disease Qualified Code(s): G20 - Parkinson's disease (2) Frequent falls: Status: Acute Assessment and plan: His mobility may be improved with the increased Sinemet but it may be at the cost of some increased confusion. Still high risk for falls. The overall goal is [facility] facility placement for ongoing physical therapy. (3) Memory loss: Status: Acute Assessment and plan: Worsening problems with memory loss and confusion. This is making it harder for him to continue to receive care at home. (4) Constipation: Status: Acute Assessment and plan: He is taking prunes to help with bowel movements. (5) Rheumatoid arthritis: Status: Acute Assessment and plan: He has been on 2 DMARDs, methotrexate and adalimumab. He is followed by Dr. Casas at [facility]. He was last seen in August 2020. Being on the Humira is going to make placement difficult because of the cost of the drug. The plan is to discontinue Humira for now until he can be reevaluated by Dr. Casas as an outpatient. At this point rehabilitation and improved ambulation are probably best for his overall health and welfare. Continue the methotrexate 5 mg q. weekly. (6) Discharge planning issues: Status: Acute Assessment and plan: He is scheduled for a palliative care consult. He remains a full code. Plan is to try to obtain [facility] facility placement. Will DC the IV fluids as he has had no further episodes of hypotension or vagal response. Subjective Subjective Interval history since last seen: Patient is status quo with no new complaints. He speaks very quietly and is difficult to understand at times. The content appears to be accurate. I asked about his 2 pairs of glasses and he stated he use them as them for different reasons. I have asked about bowel movements and he said not yet. I asked about pain and discomfort and he said none. He participated with physical therapy. He continues to complain of some right hip pain and has an aqua K pad applied. Exam Narrative Exam Narrative: Disheveled and somewhat confused. He has very quiet phonation. He is sitting in the recliner with pillows around him for comfort. He has an aqua K pad on the right hip. He has a consistent tremor and keeps his hands folded. His lungs sound clear bilaterally. His heart sounds show a 3/6 systolic murmur. His heart is beating irregularly with a louder murmur during the PVCs. His abdomen is overall soft and nontender to palpation. His lower extremities appear to be well perfused and warm. Neurologically he appears to display a very subdued affect. He has the tremor and paucity of movement consistent with his Parkinson's syndrome. I did not walk him or check his strength today. Objective Last Vital Signs Temp 37.0 C 12/17/20 07:46 Pulse 76 12/17/20 07:46 Resp 18 12/17/20 07:46 BP 181/77 H 12/17/20 07:46 Pulse Ox 96 12/17/20 07:46 Laboratory Results - last 24 hr 12/16/20 12/16/20 12/16/20 14:43 14:43 14:43 WBC RBC Hgb Hct MCV MCH MCHC RDW Plt Count MPV Immature Gran % Neutrophils % Lymphocytes % Monocytes % Eosinophils % Basophils % Nucleated RBC % Absolute Neutrophils Absolute Lymphocytes Absolute Monocytes Absolute Eosinophils Absolute Basophils Sodium 137 Potassium 4.4 Chloride 101 Carbon Dioxide 29.9 Anion Gap 6.1 BUN 24 H Creatinine 1.3 D Estimated GFR/1.73 m2 53.39 Glucose 108 H Calcium 9.3 Magnesium 1.8 Troponin I < 0.05 Procalcitonin < 0.1 Urine Color Urine Clarity Urine pH Ur Specific [place] Urine Protein Urine Ketones Urine Blood Urine Nitrite Urine Bilirubin Urine Urobilinogen Ur Leukocyte Esterase Urine Glucose 12/17/20 12/17/20 12/17/20 00:00 06:49 06:49 WBC RBC Hgb Hct MCV MCH MCHC RDW Plt Count MPV Immature Gran % Neutrophils % Lymphocytes % Monocytes % Eosinophils % Basophils % Nucleated RBC % Absolute Neutrophils Absolute Lymphocytes Absolute Monocytes Absolute Eosinophils Absolute Basophils Sodium 137 Potassium 3.9 Chloride 101 Carbon Dioxide 27.3 Anion Gap 8.7 BUN 23 H Creatinine 1.0 Estimated GFR/1.73 m2 >= 60.00 Glucose 108 H Calcium 9.2 Magnesium 1.6 L Troponin I Procalcitonin Urine Color Yellow Urine Clarity Clear Urine pH 6.0 Ur Specific [place] 1.025 Urine Protein Negative Urine Ketones Trace H Urine Blood Negative Urine Nitrite Negative Urine Bilirubin Negative Urine Urobilinogen 0.2 Ur Leukocyte Esterase Negative Urine Glucose Negative 12/17/20 06:49 WBC 7.65 RBC 3.69 L Hgb 12.2 L Hct 35.3 L MCV 95.7 H D MCH 33.1 H MCHC 34.6 RDW 13.2 Plt Count 175 MPV 9.6 Immature Gran % 0.3 Neutrophils % 66.6 Lymphocytes % 22.4 Monocytes % 8.8 Eosinophils % 1.6 Basophils % 0.3 Nucleated RBC % 0 Absolute Neutrophils 5.11 Absolute Lymphocytes 1.71 Absolute Monocytes 0.67 Absolute Eosinophils 0.12 Absolute Basophils 0.02 Sodium Potassium Chloride Carbon Dioxide Anion Gap BUN Creatinine Estimated GFR/1.73 m2 Glucose Calcium Magnesium Troponin I Procalcitonin Urine Color Urine Clarity Urine pH Ur Specific [place] Urine Protein Urine Ketones Urine Blood Urine Nitrite Urine Bilirubin Urine Urobilinogen Ur Leukocyte Esterase Urine Glucose
--- NOTE | 2020-12-17 15:54 | PGE_ITS ---
Date of Service Date of service: 12/17/20 Time of Service: 15:54 Assessment and Plan Assessment and plan (1) Frequent falls: Status: Chronic (2) Memory loss: Status: Chronic (3) Parkinsonism: Status: Acute Assessment and plan: Mr. Lau is a 80 year-old, right-handed man who was admitted with the following: #1. Parkinsons, weakness, and falls complicated by severe OA/RA. Continue Sinemet 25/250 TID + 25/100mg HS. Continue PT/ST. Will assess tomorrow to see if any changes/improvement with increase in Sinemet. #2. Sundowning in the setting of moderate-stage dementia. Per report, he has been accepted to [facility] for management of sundowning if need be as currently can't go to SNF with current safety concerns. Need to discuss medications with him to help him sleep and why he needs them as he is current refusing. However, he seems less interested in SNF, but not reconciled to fact he cannot be cared for at home.... Will continue to follow. Qualifiers: Parkinsonism type: Parkinson's disease Qualified Code(s): G20 - Parkinson's disease Subjective Subjective Interval history since last seen: I visited room x2. Unable to assess patient today as he was busy with other providers a those times. Refused Seroquel last night. Agitated/confused overnight. I briefly spoke with him and he was able to express need to use the bathroom. Less hypophonia??? Seems clear during the day per report. Exam Narrative Exam Narrative: No exam today. Objective Last Vital Signs Temp 37.0 C 12/17/20 07:46 Pulse 76 12/17/20 07:46 Resp 18 12/17/20 07:46 BP 181/77 H 12/17/20 07:46 Pulse Ox 96 12/17/20 07:46 Laboratory Results - last 24 hr 12/17/20 12/17/20 12/17/20 00:00 06:49 06:49 WBC RBC Hgb Hct MCV MCH MCHC RDW Plt Count MPV Immature Gran % Neutrophils % Lymphocytes % Monocytes % Eosinophils % Basophils % Nucleated RBC % Absolute Neutrophils Absolute Lymphocytes Absolute Monocytes Absolute Eosinophils Absolute Basophils Sodium 137 Potassium 3.9 Chloride 101 Carbon Dioxide 27.3 Anion Gap 8.7 BUN 23 H Creatinine 1.0 Estimated GFR/1.73 m2 >= 60.00 Glucose 108 H Calcium 9.2 Magnesium 1.6 L Urine Color Yellow Urine Clarity Clear Urine pH 6.0 Ur Specific [place] 1.025 Urine Protein Negative Urine Ketones Trace H Urine Blood Negative Urine Nitrite Negative Urine Bilirubin Negative Urine Urobilinogen 0.2 Ur Leukocyte Esterase Negative Urine Glucose Negative 12/17/20 06:49 WBC 7.65 RBC 3.69 L Hgb 12.2 L Hct 35.3 L MCV 95.7 H D MCH 33.1 H MCHC 34.6 RDW 13.2 Plt Count 175 MPV 9.6 Immature Gran % 0.3 Neutrophils % 66.6 Lymphocytes % 22.4 Monocytes % 8.8 Eosinophils % 1.6 Basophils % 0.3 Nucleated RBC % 0 Absolute Neutrophils 5.11 Absolute Lymphocytes 1.71 Absolute Monocytes 0.67 Absolute Eosinophils 0.12 Absolute Basophils 0.02 Sodium Potassium Chloride Carbon Dioxide Anion Gap BUN Creatinine Estimated GFR/1.73 m2 Glucose Calcium Magnesium Urine Color Urine Clarity Urine pH Ur Specific [place] Urine Protein Urine Ketones Urine Blood Urine Nitrite Urine Bilirubin Urine Urobilinogen Ur Leukocyte Esterase Urine Glucose
--- NOTE | 2020-12-17 16:25 | PCNE_ITS ---
Date of service: 12/17/20 Time of Service: 16:00 History of Present Illness History of Present Illness Chief Complaint: end-stage Parkinson's Disease, goals of care Narrative: I met with Wade and his only child, daughter Robina Lau, who is also his DPOA. Wade has advanced PD. He is followed by Dr Fisher, neurology, who diagnosed him with PD about 6 years ago. Wade had been able to manage on his own, more or less, with overnight caregivers, until this admission. His caregivers made him dinner, gave him evening meds, put him to bed, and then helped in the am. He has struggled to take his mid-day meds and eat a mid-day meal; he needs to be hand-fed. His daughter is looking for placement for him; she would like him to go to [facility], but they are not accepting patients at this time due to staffing shortages. She is looking at other places, too, with help from Care Management. Robina is worried about her father's recent cognitive decline. He has not been able to use his Iphone properly. He sends funny texts that make no sense. He says the texts are a reflectiof of what I've been thinking, but Robina says they come across all jumbled and nonsensical. His sense of time has been poor. He forgets to take his medications, and to eat. He was in an Assisted Living in the past at [facility] in [place], [place] fol lowing a surgery. He adapted well there after a while, but he had a hard first few days, per Robina. FInally, Dr Story and CM would like me to address Wade's goals of care, particularly his code status. This was done. Consults Consult date: 12/17/20 Requesting physician: Darya Story Assessment and Plan Assessment and plan (1) Goals of care, counseling/discussion: Status: Acute Assessment and plan: I discussed his CODE status with Wade and Robina. I explained what happens during a code, and his minimal chances of surviving a code and returning to his current state of ill health. He elected to allow a natural and Robina signed his COLST on his behalf. I explained if he is accepted to a [place] facility, he will want to ensure that they fill out a [place] form, too. (2) Frequent falls: Status: Chronic Assessment and plan: Part of his end-stage PD. Struggling to walk, even with assistance. He seems unaware of his decline and deficits. Robina explains that he is not so much as weak as that he forgets how to move his feet, c/w PD. At home, he was missing his midday carbodopa/levodopa unless Robina or her was able to come by. Once he gets medication in a timely manner, he may have some modicum of improvment. (3) Memory loss: Status: Chronic Assessment and plan: Also part of his end-stage PD. No other types of dementia suspected at this time. (4) Palliative care patient: Status: Acute (5) POLST (Physician Orders for Life-Sustaining Treatment): Status: Acute (6) DNI (do not intubate): Status: Acute (7) DNR (do not resuscitate): Status: Acute (8) Parkinson disease: Status: Chronic Assessment and plan: VERY strong FH of same--both parents and maternal GM. ? whether Amanda should enroll in a study? Told them I would check with Dr Fisher. (9) Health care proxy on file: Status: Chronic (10) Rheumatoid arthritis: Status: Acute (11) Dysphagia: Status: Acute Assessment and plan: I tried to help him take a sip of his water, using a straw. He could not easily. Support speech therapy eval. High risk for aspiration pneumonia. Qualifiers: Dysphagia type: unspecified Qualified Code(s): R13.10 - Dysphagia, unspecified Review of Systems Unobtainable due to (ROS from Robina, his daughter, primarily) Constitutional Constitutional: Reports daytime sleepiness, Reports fatigue, Reports frequent falls, Reports lethargy, Reports poor appetite, Reports weakness and Reports camacho ght loss Comments: He had one bad fall recently where he could not get up on his own. Trapped between the wall and furniture until his caregiver came in that evening. No head injuries from his fall. Eyes Eyes: Reports blurry vision, Reports dry eyes, Reports loss of vision and Reports requires corrective lenses ENT Ears, Nose, Mouth, and Throat: Reports change in voice (hypophonia), Reports dysphagia, Reports dry mouth, Denies hearing loss (has VERY ACUTE hearing) and Reports disequilibrium Cardiovascular Cardiovascular: Reports pedal edema, Reports lightheadedness and Reports dyspnea on exertion Respiratory Respiratory: Reports dyspnea on exertion Gastrointestinal Gastrointestinal: Reports constipation and Reports dysphagia Genitourinary Genitourinary: Reports difficulty urinating Musculoskeletal Musculoskeletal: Reports abnormal gait, Reports atrophy, Reports deformity, Reports arthralgias, Reports joint swelling, Reports muscle weakness and Reports stiffness Integumentary/Breasts Skin/Breast: Reports dry skin Neurologic Neurologic: Reports abnormal speech, Reports abnormal gait, Reports confusion (comes and goes), Reports frequent falls, Reports loss of vision, Reports memory loss, Reports disequilibrium and Reports weakness Psychiatric Psychiatric: Reports confusion (comes and goes), Reports difficulty concentrating, Reports hopelessness, Reports anhedonia, Reports memory loss and Reports paranoia Endocrine Endocrine: Reports fatigue Hematologic/Lymphatic Hematologic/Lymphatic: Reports easy bruising [facility] Medical History (Updated 12/17/20 @ 17:10 by Lilia Dukes MD) Bilateral chronic knee pain Carpal tunnel syndrome on both sides based on sx; rheum recommends no surgery Confusion 10/31/20 Resolved with decrease of Oxybutnin to QD Cubital tunnel syndrome on left based on sx; no surgery per rheum DNI (do not intubate) DNR (do not resuscitate) 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 (SEE SCANNED) POLST (Physician Orders for Life-Sustaining Treatment) Prostate cancer RA (rheumatoid arthritis) Retinal detachment multiple, bilateral Sialorrhea 10/29/14; [facility]; (SEE SCANNED) Spinal stenosis lumbar with h/o radiculopathy Surgical History History of cataract removal with insertion of prosthetic lens LEFT REMOVAL; LEFT RETINAL BUCKLE W/VITRIECTOMY; RIGHT RETINAL DETACHMENT W/VITRIECTOMY; YAG LASER TX CLOUDED LENS History of spinal surgery Lumbar 2012 Status post carpal tunnel release LEFT Status post foot surgery Status post hip replacement RIGHT Status post prostatectomy Status post total knee replacement Bilateral Status post transurethral resection of prostate Family History (Updated 12/17/20 @ 16:53 by Lilia Dukes MD) Mother , age 80 from PD Essential hypertension Parkinson disease Father , age 90 from PD and pancreatic ca Heart disease CAD Parkinson disease Pancreatic cancer Grandfather Personal history of malignant neoplasm LEUKEMIA Grandmother Parkinson disease Grandmother Essential hypertension Stroke Daughter No problems noted. Granddaughter No problems noted. Grandson No problems noted. 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 Current gender identity: male What is your relationship status?: How often do you talk on the phone with friends or family?: three or more times per week How often do you get together with friends or relatives?: three or more times per week Panel score (0-1 are the most socially isolated patients): 1 What type of physical activity do you participate in: assisted ambulation Duration: < 15 minutes/day Frequency: daily Special shauna needs: No Seatbelt use: always Do you feel safe at home: Yes Do you feel safe in your relationship?: Yes Additional Social history: Was at home with overnight caregivers until this admission. No longer safe at home. Cannot remember how to use his cell phone. Fell and could not get up. Not taking midday medications or meals. Beginning to lean toward understanding his need to go to acute rehab; he still would like to go home after rehab stay. Not sure at this time if that would be safe. He gets mad at Robina for trying to put him in a home. She is just trying to make sure he is safe. Exam Narrative Exam Narrative: Disheveled and somewhat confused. He has very quiet phonation. He is sitting in the recliner with pillows around him for comfort. He has a consistent tremor and keeps his hands folded. He hands have ulnar deviation c/w RA. His lungs sound clear bilaterally. His heart sounds show a 3/6 systolic murmur. His heart is beating irregularly with a louder murmur during the PVCs. His abdomen is overall soft and nontender to palpation. His lower extremities appear to be well perfused and warm. He has a poor sense of time; he cannot give me a history of recent events. He has the tremor, masked facies and paucity of movement consistent with his Parkinson's. He has bruising on his extremities. He grew a bit upset talking about placement; he is willing to go for rehab, not permanent placement. His daughter reminded him that when he was at [facility] in the past, he adjusted quite well pretty quickly. He seemed to recollect this. Results Last Vital Signs Temp 98.6 F 12/17/20 07:46 Pulse 76 12/17/20 07:46 Resp 18 12/17/20 07:46 BP 181/77 H 12/17/20 07:46 Pulse Ox 96 12/17/20 07:46 Labs Result diagrams: 12/17/20 06:49 12/17/20 06:49 Labs: Laboratory Results - last 24 hr 12/17/20 12/17/20 12/17/20 00:00 06:49 06:49 WBC RBC Hgb Hct MCV MCH MCHC RDW Plt Count MPV Immature Gran % Neutrophils % Lymphocytes % Monocytes % Eosinophils % Basophils % Nucleated RBC % Absolute Neutrophils Absolute Lymphocytes Absolute Monocytes Absolute Eosinophils Absolute Basophils Sodium 137 Potassium 3.9 Chloride 101 Carbon Dioxide 27.3 Anion Gap 8.7 BUN 23 H Creatinine 1.0 Estimated GFR/1.73 m2 >= 60.00 Glucose 108 H Calcium 9.2 Magnesium 1.6 L Urine Color Yellow Urine Clarity Clear Urine pH 6.0 Ur Specific Ell[place] 1.025 Urine Protein Negative Urine Ketones Trace H Urine Blood Negative Urine Nitrite Negative Urine Bilirubin Negative Urine Urobilinogen 0.2 Ur Leukocyte Esterase Negative Urine Glucose Negative 12/17/20 06:49 WBC 7.65 RBC 3.69 L Hgb 12.2 L Hct 35.3 L MCV 95.7 H D MCH 33.1 H MCHC 34.6 RDW 13.2 Plt Count 175 MPV 9.6 Immature Gran % 0.3 Neutrophils % 66.6 Lymphocytes % 22.4 Monocytes % 8.8 Eosinophils % 1.6 Basophils % 0.3 Nucleated RBC % 0 Absolute Neutrophils 5.11 Absolute Lymphocytes 1.71 Absolute Monocytes 0.67 Absolute Eosinophils 0.12 Absolute Basophils 0.02 Sodium Potassium Chloride Carbon Dioxide Anion Gap BUN Creatinine Estimated GFR/1.73 m2 Glucose Calcium Magnesium Urine Color Urine Clarity Urine pH Ur Specific Ellsworth Urine Protein Urine Ketones Urine Blood Urine Nitrite Urine Bilirubin Urine Urobilinogen Ur Leukocyte Esterase Urine Glucose
--- NOTE | 2020-12-17 18:12 | EVALE_ITS ---
Date of service: 12/17/20 Time of Service: 16:00 Speech Therapy Evaluation Referring Provider Referring Provider:: Darya Story MD Note: Speech-Language/Swallowing Pathology Clinical Dysphagia Evaluation Medical Diagnosis: Parkinson?s Disease Therapy Diagnosis: Dysphagia, Unspecified Current Level of Care: Inpatient. Subjective: Pt was reclined in his bedside chair when the [employer] ARCHITECT arrived to greet him. While he spoke in a low volume, he was verbally communicative and able to answer questions and follow simple directions for [employer] assessment today. Disfluency noted. Pt regularly closing his eyes, but able to open when asked. His caregivers had left for the day and were not available for consultation this evening. Pertinent Medical/Swallowing History & Previous Level of Function: Pt is a 80 y.o. man with h/o Parkinson?s, RA, HTN, HLD, prostate CA. His problem list is extensive and includes dysphagia. Full swallowing hx unable to be determined with no caregiver present this evening, however, dysphagia noted 11/25/[address] Fisher, Neurology. Her note describes: ?In 2015, he began developing progressive dysphonia and dysphagia. This was especially worse in 2017 at which time he was having increased drooling. He was re-started on Sinemet in October 2017 with no change in speech, swallowing, or drooling, nor with motor ability. Further increases in fall 2017 with questionable improvement and significant oral/facial dyskinesias (2x25/100mg TID). Dysphagia: mainly liquids, worse when using a straw. Saw ENT Feb 2018 and rec'd smaller sips.? He was admitted to [facility] due to increase in falls and daughter concerned about his ability to care for himself. Pt has had slow decline over the years physically and cognitively. Current Level of Function & Reason for Referral:Pt has been sundowning and with increased agitation. He has refused medications and been trying to get out of bed since admission. His family reports concerns for dysphagia. Staff have been feeding pt during his stay and deny swallow concerns, stating that he has managed a regular diet and thin liquids with very occasional cough observed. Pt does require total assistance with feeding. Clinical swallow evaluation ordered to evaluate dysphagia and assess aspiration risk. Living Environment/Support: Per case management notes, ?Wade resides in [place], [place]. He has a supportive family including his DPOA and daughter, Robina and his caregiver, Radha. He requires support with most ADLs due to Parkinsonism. Current home/community services/equipment include: Caregiver, raised toilet seat, tub seat/bench, FWW, home health aide, home health nurse. Precautions: Fall risk. Aspiration risk. Medications: Please see MAR. Allergies: Pollen, dust. Barriers to Learning: Cognitive, physical. Respiratory Function: WFL today. Supplemental Oxygen: None today, on room air during evaluation. Posture/Positioning: Adequate in chair today. Prior Diet: Regular, thin liquids. Current Diet: Regular, thin liquids. ORAL MECHANISM EXAMINATION Dentition: Upper and lower natural. Crowns present, several upper and lower teeth missing, including molars. Oral Hygiene: Pt with minimal coating on tongue. Teeth decay present. Mouth is moist. Oral Structures: Pt exhibited significant lingual dyskinesia. He was able to lateralize and lower his tongue upon request, however, he did not elevate upon command and lateral ROM and strength reduced, worse on left side. Mandibular and labial strength and ROM were considered WFL today during oral-mechanism exam. Consistencies Tested: Thin, mildly thick (nectar), minced and moist, regular. Self-Feeding/Level of Assistance: Complete assistance, no self-feeding. Oral Phase: Pt rounded lips around fork and straw, able to suck from a straw, though reduced coordination. Very poor coordination with open cup sips when being fed (unable to hold cup). Labial leakage frequently observed with straw sips. Pt is not closing his lips to keep bolus contained and instead is placing his top teeth on his bottom lip in labiodental position, including when swallowing, which is likely also displacing his tongue when swallowing. Highly suspect premature spillage. Quite audible swallows and wet/gurgly quality. Poor bolus manipulation/formation and poor A-P transit with abnormal and repetitive/non-functional chewing. No rotary chew seen. Pharyngeal Phase: Suspect residue/status. Suspect reduced airway protection. Esophageal Phase: No hx noted in acute chart. S/S Aspiration: Throat clear, coughing, water eyes, runny nose. Pt/Caregiver/Staff Education: [employer] consulted with nursing throughout examination and requested observation in order to determine changes in status. Outcomes of evaluation and significant change in status including high aspiration and choking risks reviewed with nursing. [employer] also discussed outcomes and concerns with hospitalist and recommended diet downgrade until objective instrumentation can be completed. Assessment: Pt is a 80 y.o. male who presents with severe oral and suspected pharyngeal dysphagia this evening during bedside clinical swallow evaluation, which is reported by nursing to be a significant change in status. Nursing stated that pt has managed a regular diet and thin liquids prior to this assessment. Pt exhibited overt s/s of aspiration across all presentations today, including trialing straw sips, open cup sips, thickened liquids, modified textures, and increased verbal cueing/instructions for swallowing. Pt demonstrating rounded lips around fork and straw and was able to suck from a straw, though reduced coordination seen. Very poor coordination with open cup sips when being fed (unable to hold cup). Labial leakage frequently observed with straw sips. Pt is not closing his lips to keep bolus contained and instead is placing his top teeth on his bottom lip in labiodental position, including when swallowing, which is likely also displacing his tongue when swallowing (for both liquids and solids). Highly suspect premature spillage. Quite audible swallows with wet/gurgly quality. Poor bolus manipulation/formation and poor A-P transit with abnormal and repetitive/non-functional chewing. Lack of rotary chew. Further suspect residue/status and reduced airway protection at pharyngeal level. [employer] questioning possibility of medication effects on swallowing status. Pt?s sinemet dose has recently changed and unclear current schedule/whether or not receiving prior to meals for maximum efficacy with regards to swallow skills. This was further discussed with hospitalist and neurologist today. [employer]CH[employer]ECT to follow-up with providers in the morning for further consultation. Given severity of deficits noted this evening and consultation with hospitalist, pt will be placed NPO except medications pending further diagnostic assessment. [employer] recommends a modified barium swallow study to objectively assess the structural and functional integrity of pt?s swallowing and to further determine aspiration risks and potential modifications and/or strategies that could reduce those risks. If instrumentation cannot be completed tomorrow and pt must receive oral intake, please refer to [employer] recommendations following re-assessment in the morning. Rehab Potential: TBD pending further diagnostic assessment. Short-Term Goals: Re-assess pt tomorrow. Goals of care TBD pending outcomes of re-assessment and/or further instrumentation (MBS). Long-Term Goals: TBD. Pt Goal: To go home. PLAN Planned Treatment Interventions: Re-assessment tomorrow. TBD. Frequency: TBD. Intensity: TBD. Duration: TBD. Discharge Plan: TBD. SWALLOWING RECOMMENDATIONS NPO except medications. Please refer to [employer] recommendations following re- assessment tomorrow. If pt must receive intake PO in the meantime, recommend maximum of puree solids and mildly-thick (nectar) liquids to reduce risks of aspiration and choking, though please note, these could not be eliminated today. Medication Administration: Crushed in puree/pudding. Level of Assistance/Supervision: Total feed. Recommended Referrals/Procedures: Modified barium swallow study (MBS). Charge Code: [id number] Evaluation Time In: 4:00 pm Time Out: 5:30 pm Total Time: 90 minutes Coding
[2020-12-17 18:15] VITALS: BP 167/79; PULSE 73; RESP 14; TEMP 36.6; O2SAT 98
[2020-12-17] MEDS: Carbidopa 25/Levodopa 100 TAB PO (21:05)
[2020-12-17] MEDS: QUEtiapine 25 MG TAB 50 MG PO (21:05)
[2020-12-17] MEDS: Melatonin 3 MG TAB PO (21:05)
[2020-12-18] MEDS: Normal Saline 1,000 ML 100 ML IV ×2 (00:45→12:31)
[2020-12-18] MEDS: Sertraline 25 MG TAB PO (08:28)
[2020-12-18] MEDS: Sertraline 50 MG TAB PO (08:28)
--- NOTE | 2020-12-18 08:32 | SPP_ITS ---
Date of service: 12/18/20 Time of Service: 08:32 Subjective Patient assessed in am, low volume/hypophonia + reduced intelligibility, closing eyes intermittently unless verbal cues provided; appears to be having delusions/hallucinations per conversation with clinician (reports woman next to him is watching television, but she is sleeping right now despite no other patient being present; very perseverative about his shoes belonging to someone else, paranoid re: medical staff lying to him about reason for admission, plan for once he is d/c from acute care); patient agreeable to VFSE/MBSS this afternoon, agreeable to trial of ice chips with clinician to address dry mouth Objective/Assessment/Plan Objective Treatment Techniques &Outcomes: Patient education/counseling re: rationale for VFSE/MBSS; patient verbalizes agreement with VFSE/MBSS this afternoon Patient/Caregiver/Staff Education:: Communicated VFSE/MBSS plan for this afternoon with RN and Dr Story, tentative recommendations also communicated briefly during morning meeting Patient does not demonstrate overt s.s aspiration this am with ice chip via tsp with assist, however anterior spillage was noted (likely attentional deficits vs labial strength/coordination) Following recommendations written on patient's white board and communicated with Nursing staff until VFSE/MBSS can take place today: - NPO - Ice chips throughout day for oral comfort, provided thorough oral care and assist from staff given difficulties with fine motor abilities Assessment Patient is able to answer most questions appropriately despite behavioral difficulties, deemed appropriate for VFSE/MBSS; depending on results of VFSE/MBSS this afternoon, pt is likely not an appropriate candidate for enteral feeding given observed behaviors today, likely to reduce overall quality of life vs continued po intake per patient preference and in line with recommendations per VFSE/MBSS. Highly recommend continued care team coordination + pat ient/family/counseling re: recommendations per VFSE/MBSS results. Recommendations Diet: NPO Other: Ice chips throughout day, provided thorough oral care and assist Strategies/Adaptions: Use supports to ensure upright/midline posture, Pace rate of intake and Oral care at least 2x/day Supervision: Direct supervision via of [facility] staff, assist w/feeding Additional Notes: Sita Desir MA CCC-[employer] Speech-Language Pathologist [place]#[phone] CODIN Treatment of Swallowing Dysfunction and/or Oral Function for Feeding Total Time Spent: 38 minutes Coding
--- NOTE | 2020-12-18 09:12 | PDOC.CMPRO ---
- If Service Date Differs Date of service: 12/18/20 Time of Service: 16:58 Care Management Progress Note S/O: Wade remains acute at [facility]; with medications changes and close monitoring. Scheduled seroquel started yesterday with good effect per MD. Palliative consult ordered and completed by Dr. Dukes yesterday with Robina and Wade; now DNR/DNI. Wade will have a barium swallow evaluation with the speech therapist today. Robina completed application for [facility] and submitted via email. Wade was unable to tolerate the swallow eval; discussed comfort care with Dr. Mirza; awaiting updates. also requested Dr. Dukes discuss with Robina, she reported she will connect with Robina tomorrow. [facility] requested medication changes on discharge due to high cost of Humira; this was discussed MD-MD (Dr. Mirza-Dr. Willie Hodges) with decision to discontinue Humira on discharge. SNF options: Robina chose the following SNF facilities-referrals pending unless noted otherwise. [facility]: reviewing for admission. [facility]: Not accepting referrals. [facility]: Not accepting referrals. [facility]-application submitted by Robina. 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 [facility]: reviewing for admission-possible bed later this week, early next week. [facility] referral pending-awaiting determination though concerned limited mobility may make patient ineligible for admission. A: 80 year old male admitted to [facility] 12/13/20 for frequent falls, Parkinsonism P: SNF referrals pending, as well as [facility] referral. Transportation to be determined by disposition. CM continues to follow.
--- NOTE | 2020-12-18 10:15 | W.PM.PROGNOT ---
Date of Service Date of service: 12/18/20 Time of Service: 10:15 Assessment and Plan Assessment and plan (1) Frequent falls: Status: Chronic (2) Memory loss: Status: Chronic (3) Parkinsonism: Status: Acute Assessment and plan: Mr. Lau is a 80 year-old, right-handed man who was admitted with the following: #1. Parkinsons, weakness, and falls complicated by severe OA/RA. Continue Sinemet 25/250 TID + 25/100mg HS. I see slight improvement in motor function with this. Unclear why swallowing has worsened. Due to drooling? I would consider re-initiating oxybutynin. Prior to hospitalization, many conversations with him in regards to oxybutynin in that it helps his drooling but worsens cognition. His choice was always to continue it as the drooling is so severe for him. Thus, would consider re-starting. Additionally, given what I know of him over the years and per past conversations, would resume PO intake [place] following testing, regardless of results/risks as his goals have always been geared towards QOL. Continue PT/ST. #2. Sundowning in the setting of moderate-stage dementia. Slept well with Seroquel 50mg, but more confused this am. Reduce to 37.5mg HS? 25mg HS earlier in stay did not keep him calm. Will continue to follow. Qualifiers: Parkinsonism type: Parkinson's disease Qualified Code(s): G20 - Parkinson's disease Subjective Subjective Interval history since last seen: Took Seroquel 50mg last night. Slept through the night. Arousable. Incontinent but able to go back to sleep. No agitation over night. This am more confused than usual. Nursing didn't think so much that he was sleepy, but I think maybe a little bit. Eyes closed for me. After I had him open his eyes, he started to interact more and make a little sense. Didn't know who I was initially, but then able to identify me as he became more alert. Failed swallow exam with ST miserably yesterday evening. Nursing had not noticed such significant problems prior to yesterday evening. Repeat eval this morning with rec'd Barium swallow to be performed this afternoon. Drooling has returned. Exam Narrative Exam Narrative: Physical Exam: Sinemet taken ~2hours prior Constitutional: Patient of apparent stated age, no acute distress, mild hypomima, slightly lethargic for me Neuro: MS/Language/Speech: Alert, oriented, clear language (fluency and comprehension), mild dysarthria; moderate-severe hypophonia Motor: Bilateral wrist rigidity, R>L, severe; ?cogwheeling - no obvious. Mild diffuse bradykinesia - appears improved. FMM reduced bilaterally, R=L, no pronator drift. 4+/5 L hip flexor and 3+/5 R hip flexor. 5/5 all else in LE. No resting tremor today. Bilateral hand atrophy. Minimal bilateral UE postural tremor and dysmetria. Coordination: Finger to nose performed with subtle bilateral UE dysmetria Gait: not tested Objective Last Vital Signs Temp 36.6 C 12/17/20 18:15 Pulse 73 12/17/20 18:15 Resp 14 12/17/20 18:15 BP 167/79 H 12/17/20 18:15 Pulse Ox 98 12/17/20 18:15
--- NOTE | 2020-12-18 11:53 | CHAPLAIN ---
Wade was sitting up in a chair, with a table in front of him. His phone was on the table with a try again message on it and he was making an effort to push some buttons. He had a [facility] novel on the table a book by Alisha Thorne, What Things Fall A Part. Much of what Wade said I was unable to understand as he spoke softly and mumbled. When I let him know that I couldn't understand him, he said that's okay, I didn't hear myself either. He asked for a glass of juice, when I asked if I could get him anything. I checked, and he is NPO until after a swallow test this afternoon. When I told Wade this, he said there are a lot of rules here, and that he didn't like rules. 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 He said good for you. According to Dr. Dukes's palliative care notes, she met with Wade, and his daughter Robina, who is trying to get Wade into an assisted living situation. He's been living at home with over-night care givers. Robina has applied for guardianship. She is his only child. She is looking into more long-term care,
[2020-12-18 12:51] LABS: Source Nasal/Nares
[2020-12-18 13:46] LABS: COVID-19 PCR Negative (Negative)
--- NOTE | 2020-12-18 14:26 | PTTR_ITS ---
Date of service: 12/18/20 Time of Service: 09:50 PT Notes Visit Reasons: Frequent Falls, Parkinsons Inpatient Physical Therapy Treatment Note [facility] Date: 12/18/2020 PRECAUTIONS: Fall, Parkinson's, Dementia SUBJECTIVE: Wade states that he believes that he is in a baptist today. He states I'm all done with this in p.m., following gait training. OBJECTIVE: PAIN: No c/o pain BED MOBILITY/TRANSFERS Sit-stand: Max A x2 Stand-sit: Mod A x2 in a.m.; Min A + Mod A in p.m. GAIT Assistive Device: ABRASIVES SALES REPRESENTATIVE x2 Weight bearing: Full Assist: CGA x2 Distance: 30' in a.m.; 40' in p.m. Deviation: Cueing to open eyes, counting steps improves mobility ASSESSMENT: Patient tolerated session with complaint of increased fatigue. He appears to become increasingly confused in p.m. He continues to demonstrate improved gait mechanics when steps are counted out loud. PLAN: Continue with global strengthening and conditioning for improved mobility and activity tolerance. TREATMENT CODE/TIME: Session 1: 30 minutes; 22463 x2 (09:50) Session 2: 20 minutes; 80192 (14:00)
--- NOTE | 2020-12-18 15:35 | SPP_ITS ---
Date of service: 12/18/20 Time of Service: 15:35 Subjective Patient assessed in Diagnostic Imaging prior to scheduled VFSE/MBSS, demonstrating increase in paranoid behaviors once he arrived to [facility] unit, relative to early AM when last assessed by this SCHOOL SUPERINTENDENT (eg, currently stating that 'everyone here is out to get him' and that he is 'already ', refusing to answer simple questions re: food/beverage preferences, stating 'I know better than to give out too many details, I have a good daub color mixer') Once Radiologist arrived, patient refused to be transferred to bench seat to commence VFSE/MBSS, despite calm tone/demeanor of all staff and various attempts at redirection, stating he 'would not take anything [he] was given' and that is was 'poison', despite verbal+visual education to the contrary. When asked if he'd like to talk more about reason for swallow study again or alternatives to direct swallow treatment, patient verbalized disinterest in 'any intervention whatsoever', stated he 'adamantly refuses' further treatment, repeating this multiple times. Patient was agreeable to this clinician speaking with Robina, to discuss plan moving forward. Objective/Assessment/Plan Assessment Patient unable to participate in VFSE/MBSS secondary to behavioral change(s), refusal to participate; in this clinician's opinion, patient continues to be an inappropriate candidate for enteral feeding given observed worsening behaviors today while remaining NPO and in context of progressive PD; if patient is provided direct assistance and full supervision for all po intake this evening with recommendations as listed below, he is likely to tolerate IDDSI Level 4 - pureed solids, Level 2 Mildly thickened liquids, with single ice chips after thorough oral care for oral comfort; would not recommend further upgrade in textures/consistencies until SCHOOL SUPERINTENDENT re-evaluation takes place tomorrow morning 12/19. These recommendations were reviewed with Dr. Story after patient refused VFSE/MBSS this afternoon. Highly recommend Palliative Care consult with continued care team coordination + patient/family/counseling re: recommendations for PO intake (see below) given lack of VFSE/MBSS results, verbalized patient wishes (see above), and continued re-assessment with SCHOOL SUPERINTENDENT. Plan SCHOOL SUPERINTENDENT to re-assess patient in morning during mealtime. Recommendations Diet: 4-Pureed/Extremely Thick Liquids: 2-Mildly Thick/[place] Thick Strategies/Adaptions: Upright and out of bed in a chair for all meals/snacks, Use supports to ensure upright/midline posture, Pace rate of intake, Small bites, Alternate liquids and solids, No straws, Check oral cavity frequently, Feed in low-stimulation environment (Patient responds most appropriately when door is closed/little auditory distraction is present (ie, television left on, talking in lopez, etc)) and Oral care at least 2x/day Supervision: Direct supervision via of [facility] staff, assist w/feeding and Frequent/periodic check-ins Recommendations: Patient/POA/Physician discussion regarding goals of care. May consider following options: (a) Long-term enteral feeding route (e.g., PEG) if care team decides patient should remain NPO - this option does not reduce probability of aspiration of secretions or mortality & will likely reduce QOL, including increase in adverse behaviors (eg, paranoia, agitation, confusion) (b) PO comfort feedings with use of outlined risk management, despite high likelihood (unable to confirm without objective imaging) of aspirat ion/malnutrition/dehydration risk Risk management: Control risk factors for aspiration pneumonia via oral hygiene as tolerated by patient Specialist referrals: Palliative care evaluation with consideration of bioethical concerns. Ancillary tests N/A -* May consider attempting VFSE/MBSS again if paranoid behaviors are reduced and patient verbalizes agreement Therapy: Pt is unlikely to benefit from direct swallow rehabilitation at this time. SCHOOL SUPERINTENDENT will continue to re-assess and f/u for POC discussion. Goal: Pt's family/POA will perform verbal teachback of recommendations to reduce risk for aspiration PNA, ensure maintenance of patient quality of life Additional Notes: Sita Desir MA [facility]-SCHOOL SUPERINTENDENT Speech-Language Pathologist [place]#[phone] Total Time Spent: 60 Coding
--- NOTE | 2020-12-18 17:51 | PGE_ITS ---
Date of Service Date of service: 12/18/20 Time of Service: 17:51 Assessment and Plan Assessment and plan (1) Parkinson disease: Status: Chronic Assessment and plan: The increased dose of Sinemet seems to help with his movements but may have had a detrimental effect on cognition. We will continue to monitor. (2) Frequent falls: Status: Chronic Assessment and plan: He still remains very tenuous with ambulation. The combination of advanced Parkinson's disease and his severe rheumatoid arthritis make the outlook for improved ambulation somewhat doubtful. (3) Memory loss: Status: Chronic Assessment and plan: Relatively rapid progression of his dementia. Seen by palliative care yesterday. He is now DNR/DNI. Our primary purpose at this point is to achieve comfort. (4) Salivary secretion: Status: Acute Assessment and plan: Long-term excessive salivation and swallowing difficulties. We are avoiding oxybutynin because of the effect on cognition per family request. (5) Exposure to COVID-19 virus: Status: Acute Assessment and plan: His granddaughter came to visit this past 12/15/2020. She tested positive for Covid today. A rapid Covid test was negative for the patient. He does not appear to have symptoms. (6) Discharge planning issues: Status: Acute Assessment and plan: Continue to try to obtain nursing home facility bed. His daughter mentions that the Humira has been procured through a community pharmacy program therefore making cost not an issue. She is hoping that could be considered when he is being considered for a residential bed. Subjective Subjective Interval history since last seen: Patient had a good day today. He worked with physical therapy and walked 30 feet in the morning and 40 feet in the afternoon. Speech therapy saw him and felt that his drooling and choking were a risk for aspiration. He was brought down for a modified barium swallow but refused to drink the barium. He did not want any more tests. A home caregiver, Aliya, came to see him and brought him a piece of cake. He was observed trying some water which she had some difficulty with but was able to eat cake and swallow it without any evidence of swallowing difficulty. I spoke with his daughter, Robina. She felt that we should avoid excessive testing and procedures and aim primarily for comfort at this juncture. Dr. Fisher saw the patient today and recommended cutting back the Seroquel from 50 mg to 37.5 mg. Were holding on the oxybutynin for the drooling because of the effect on his cognition. Exam Narrative Exam Narrative: On exam he is notably more bright and alert today. He was talkative and somewhat witty in his conversation. He was working his caregiver to give him a ride home. He was not completely oriented and at times was a bit confabulatory. He is somewhat rigid in his movements. He has no respiratory difficulties, his lung sounds are clear to auscultation on the right and left. Heart sounds are regular and have no murmur. Abdomen is nontender. No significant lower extremity edema. Neurologically his movements are little more free today. Objective Last Vital Signs Temp 36.6 C 12/17/20 18:15 Pulse 73 12/17/20 18:15 Resp 14 12/17/20 18:15 BP 167/79 H 12/17/20 18:15 Pulse Ox 98 12/17/20 18:15 Laboratory Results - last 24 hr 12/18/20 12:38 COVID-19 Source Nasal/Nares SARS-CoV-2 (PCR) Negative
[2020-12-18 19:30] VITALS: BP 99/58; PULSE 73; RESP 18; TEMP 37.1; O2SAT 99
[2020-12-18] MEDS: Ibuprofen 200 MG TAB PO (22:57)
[2020-12-18] MEDS: Carbidopa 25/Levodopa 100 TAB PO (22:58)
[2020-12-18] MEDS: Melatonin 3 MG TAB PO (22:58)
[2020-12-18] MEDS: Simvastatin 10 MG TAB PO (22:58)
[2020-12-19] MEDS: LORazepam 2 MG/ML VIAL 1 MG IVP (02:25)
[2020-12-19] MEDS: Normal Saline 1,000 ML 50 ML IV (02:26)
[2020-12-19 07:41] VITALS: BP 181/82; PULSE 69; RESP 12; TEMP 36.9; O2SAT 97
[2020-12-19] MEDS: Cyanocobalamin 500 MCG TAB 1000 MCG PO (09:19)
[2020-12-19] MEDS: Folic Acid 1 MG TAB PO (09:19)
[2020-12-19] MEDS: Sertraline 50 MG TAB PO (09:20)
[2020-12-19] MEDS: Omega-3 Fatty Acids 1000 MG CAP PO (09:20)
[2020-12-19] MEDS: Sertraline 25 MG TAB PO (09:20)
--- NOTE | 2020-12-19 10:30 | W.PM.PROGNOT ---
Documented by User: Akilah Rdz NP 12/19/20 13:53 Date of Service Date of service: 12/19/20 Time of Service: 10:30 Assessment and Plan Assessment and plan (1) Parkinson disease: Status: Chronic Assessment and plan: The increased dose of Sinemet seems to help with his movements but may have had a detrimental effect on cognition. We will continue to monitor. (2) Frequent falls: Status: Chronic Assessment and plan: He still remains very tenuous with ambulation. The combination of advanced Parkinson's disease and his severe rheumatoid arthritis make the outlook for improved ambulation somewhat doubtful. (3) Memory loss: Status: Chronic Assessment and plan: Relatively rapid progression of his dementia. Seen by palliative care again today. 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 He is now DNR/DNI. He would like to return home but understands he is not ready at this point. he is agreeable to a rehab stay but should it turn into LTCP he would prefer home with hospice. (4) Salivary secretion: Status: Acute Assessment and plan: Long-term excessive salivation and swallowing difficulties. We are avoiding oxybutynin because of the effect on cognition per family request. (5) Exposure to COVID-19 virus: Status: Acute Assessment and plan: His granddaughter came to visit this past 12/15/2020. She has since tested positive for Covid. A rapid Covid test was negative for the patient. He does not appear to have symptoms. will continue to monitor closely and retest in 5 days. (6) Discharge planning issues: Status: Acute Assessment and plan: Continue to try to obtain care home facility bed. His daughter mentions that the Humira has been procured through a community pharmacy program therefore making cost not an issue. She is hoping that could be considered when he is being considered for a senior living bed. discussed with DR Story Subjective Subjective Patient reports: no new complaints and afebrile Exam Const General: cooperative, no acute distress and frail appearing Nutritional Appearance: average body habitus Orientation: alert and oriented x3 HENMT Head: normocephalic and atraumatic Neck Neck: full ROM and no JVD Resp Effort & Inspection: normal respiratory effort Auscultation: clear to auscultation bilaterally Cardio Rate: regular rate Rhythm: regular rhythm Heart Sounds: S1 normal and S2 normal GI Palpation: soft Auscultation: hyperactive bowel sounds Skin General skin exam: no rashes or lesions noted Neuro General: moves all extremities Cranial Nerves: facial strength normal Cognition: normal cognition Motor: tone not normal throughout (Cog-wheel rigidity), tremor (Intentional tremor of hands.) and other (Unable to extend elbows d/t contractures. ) Extrem General: no pedal edema Psych Mood: congruent mood Objective Last Vital Signs Temp 36.9 C 12/19/20 07:41 Pulse 69 12/19/20 07:41 Resp 12 12/19/20 07:41 BP 181/82 H 12/19/20 07:41 Pulse Ox 97 12/19/20 07:41 Laboratory Results - last 24 hr 12/18/20 12:38 COVID-19 Source Nasal/Nares SARS-CoV-2 (PCR) Negative Documented by User: Darya Story MD 12/20/20 17:49
--- NOTE | 2020-12-19 10:44 | PDOC.STREC ---
Date of service: 12/19/20 Time of Service: 08:15 Speech Therapy Recommendations Report ST Recommendations: ELECTRICIAN SUPERVISOR assessed patient in director of land for breakfast meal (level 4 pureed solids, 2 mildly thickened liquids) and this clinician prepared mildly thickened liquids at bedside; patient very lethargic with eyes closed, able to maintain conversation with this clinician and then falling back to sleep; patient not appropriate for PO feeding at time of visit; communicated current diet recommendations to RN, updated diet recommendations and strategies on patient's white board, as well as ELECTRICIAN SUPERVISOR extension if SPECIAL EDUCATION INSTRUCTOR staff have any questions/concerns. Plan: Will re-assess patient during lunch meal today, provide further recommendations/guidelines to support safe po intake. Recommendations / Risk management: Diet: 4-Pureed/Extremely Thick Liquids: 2-Mildly Thick/[place] Thick, ice chips for oral comfort only after thorough oral care provided Strategies/Adaptions: Upright and out of bed in a chair for all meals/snacks, Use supports to ensure upright/midline posture, Pace rate of intake, Small bites, Alternate liquids and solids, No straws, Check oral cavity frequently, Feed in low-stimulation environment (Patient responds most appropriately when door is closed/little auditory distraction is present (ie, television left on, talking in lopez, etc) and Oral care at least 2x/day Supervision: Direct supervision via of [facility] staff, assist w/feeding and Frequent/periodic check-ins Control risk factors for aspiration pneumonia via oral hygiene as tolerated by patient Therapy: Pt is unlikely to benefit from direct swallow rehabilitation at this time. ELECTRICIAN SUPERVISOR will continue to re-assess and f/u for POC discussion. Goal: Pt's family/POA will perform verbal teachback of recommendations to reduce risk for aspiration PNA, ensure maintenance of patient quality of life Coding
--- NOTE | 2020-12-19 11:09 | CMPROGNOTE_ITS ---
Care Management Progress Note S/O: Wade remains acute at [facility]; with medications changes and close monitoring. Scheduled seroquel started yesterday with good effect per MD. Palliative consult ordered and completed by Dr. Dukes yesterday with Robina and Wade; now DNR/DNI. Wade was unable to tolerate the swallow eval; discussed comfort care with Dr. Mirza; and Dr. Dukes; limited interventions at this time. [facility] requested medication changes on discharge due to high cost of Humira; this was discussed MD-MD (Dr. Mirza-Dr. Willie Hodges) with decision to discontinue Humira on discharge. Robina reports she can supply humira from the community. SNF options: Robina chose the following SNF facilities-referrals pending unless noted otherwise. [facility]: reviewing for admission, anticipate determination on 12/26/20. [facility]: referral pending. [facility]: reviewing for admission-possible bed later this week, early next week. [facility]: Not accepting referrals. [facility]: Not accepting referrals. [facility] declined admission. [facility] declined referral. A: 80 year old male admitted to [facility] 12/13/20 for frequent falls, Parkinsonism P: SNF referrals pending. Transportation to be determined by disposition. CM continues to follow.
[2020-12-19 11:30] VITALS: BP 153/84; PULSE 67; RESP 16; TEMP 36.5; O2SAT 98
--- NOTE | 2020-12-19 14:55 | PCPN_ITS ---
Date of service: 12/19/20 Assessment and Plan Assessment and plan (1) Exposure to COVID-19 virus: Status: Acute Assessment and plan: Granddaughter visited recently; she is reported + for COVID. 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 Medically very literate. (3) Parkinson disease: Status: Chronic Assessment and plan: end-stage has all the symptoms despite appropriate medications tremor, cogwheeling, occasional Lewy Body type hallucinations, hypophonia, masked facies, resistant to change, poor self reflection skills, constipation, inability to walk, frequent falls (4) Goals of care, counseling/discussion: Status: Acute Assessment and plan: willing to go to rehab wants to return home with increased caregivers might not be possible given curren shortage of home care providers would prefer to go on hospice at home than stay at rehab long-term (5) Frequent falls: Status: Chronic Assessment and plan: has end-stage Parkison's gait, shuffling gait complicated by his years of RA, too with joint stiffness and pain, including ankles (6) Discharge planning issues: Status: Acute Assessment and plan: Daughter Robina would prefer [facility], but they currently have no openings. Looking at other places. (7) Palliative care patient: Status: Acute Assessment and plan: Will follow him once he is discharged IF he is in our cachement area. (8) Hypophonia: Status: Acute Assessment and plan: Hard to hear him. He speaks very softly and slowly and has a very circuitous way of speaking. Needs time. Cannot be rushed. (9) Hearing abnormally acute: Status: Acute Assessment and plan: Hearing is not at all impaired. Subjective Subjective Patient reports: no new complaints and feels better Interval history since last seen: I met with Wade by himself for 35 minutes. He speaks very slowly and softly. Then hospitalist Akilah Rdz NP joined us. I spoke also to Wade's daughter and JOSE Quarles by phone. I spoke to Dr Story, hospitalist, who specifically asked that I address Wade's wishes about antibiotics. I discussed this issue with both Wade and Robina. They agreed that they would want antibiotics IF antibiotics were being used to help alleviate Wade's pain--such as in a skin infection or UTI. Otherwise, they agreed not to treat with antibiotics. Wade is stabilizing, at least during the day. He is able to eat and drink with assistance. His primary nurse, Karen, said he ate 2 bowls of applesauxe and his cream of wheat and he drank his milk, water and juice. He doesn't want to have any further testing. He refused to have a barium swallow. He does not want to eat a restricted diet. He wants access to all foods, even if they put him at greater risk for aspiration. He is reluctantly agreeing to placement in a SNF. He says he would rather go home on hospice than stay in a SNF long-term. His daughter Robina is aware of the shortage of home caregivers in the community. Currently, he only has overnight care. If he were to go home, she would need to find additional caregivers to cover the daytime hours. She also explained that her father has always been very resistant to change. The home where he lives is new to him--only about 5 years in it. It has no emotional attachment. She is still thinking that going to a SNF with acute care at first, then transition to long-term care might be in his best interest. Exam Const General: cooperative, no acute distress and frail appearing Nutritional Appearance: average body habitus Orientation: alert and oriented x3 HENMT Head: normocephalic and atraumatic Neck Neck: full ROM and no JVD Resp Effort & Inspection: normal respiratory effort Auscultation: clear to auscultation bilaterally Cardio Rate: regular rate Rhythm: regular rhythm Heart Sounds: S1 normal and S2 normal GI Palpation: soft Auscultation: hyperactive bowel sounds Skin General skin exam: no rashes or lesions noted Neuro General: moves all extremities Cranial Nerves: facial strength normal Cognition: normal cognition Motor: tone not normal throughout (Cog-wheel rigidity), tremor (Intentional tremor of hands.) and other (Unable to extend elbows d/t contractures. ) Extrem General: no pedal edema Psych Mood: congruent mood Objective Last Vital Signs Temp 97.7 F 12/19/20 11:30 Pulse 67 12/19/20 11:30 Resp 16 12/19/20 11:30 BP 153/84 H 12/19/20 11:30 Pulse Ox 98 12/19/20 11:30
--- NOTE | 2020-12-19 16:13 | PGE_ITS ---
Date of Service Date of service: 12/19/20 Time of Service: 16:13 Assessment and Plan Assessment and plan (1) Frequent falls: Status: Chronic (2) Memory loss: Status: Chronic (3) Parkinsonism: Status: Acute Assessment and plan: Mr. Lau is a 80 year-old, right-handed man who was admitted with the following: #1. Parkinsons, weakness, and falls complicated by severe OA/RA. Continue Sinemet 25/250 TID + 25/100mg HS. Swallowing has improved per ST. Minimal drooling today. Oxybutynin on hold as it can worsen cognitive status. Continue PT/ST. He is awating placement. #2. Sundowning in the setting of moderate-stage dementia. Continue Seroquel 37.5mg HS. Prn lorazepam. Qualifiers: Parkinsonism type: Parkinson's disease Qualified Code(s): G20 - Parkinson's disease Subjective Subjective Interval history since last seen: Mr. Lau remains confused off/on. Fell asleep last night prior to getting Seroquel. 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 Treated with lorazepam. Exam Narrative Exam Narrative: Physical Exam: Sinemet taken ~5hours prior Constitutional: Patient of apparent stated age, no acute distress, mild hypo mik, not so lethargic Neuro: MS/Language/Speech: Alert, oriented, clear language (fluency and comprehension), mild dysarthria; moderate-severe hypophonia Motor: Bilateral wrist rigidity, R>L, severe; ?cogwheeling - no obvious. Mild diffuse bradykinesia. FMM reduced bilaterally, R=L, no pronator drift. 4+/5 L hip flexor and 3-/5 R hip flexor. 5/5 all else in LE. No resting tremor today. Bilateral hand atrophy. Minimal bilateral UE postural tremor and dysmetria. Coordination: Finger to nose performed with subtle bilateral UE dysmetria Gait: not tested Objective Last Vital Signs Temp 36.5 C 12/19/20 11:30 Pulse 67 12/19/20 11:30 Resp 16 12/19/20 11:30 BP 153/84 H 12/19/20 11:30 Pulse Ox 98 12/19/20 11:30
--- NOTE | 2020-12-19 17:34 | SPP_ITS ---
Date of service: 12/19/20 Time of Service: 16:18 Subjective Patient assessed in evening during dinner meal (4-pureed solids, 2-mildly thickened liquids, additional trials with BUILDING PERFORMANCE CONSULTANT); patient demonstrating some sundowning behaviors + paranoid thoughts during conversation with this clinician (if you pour the drink, how I am I to know there is no poison?) but overall able to be redirected to task successfully. Occasionally patient will ask to pause so he may listen to the programming, there may be important things being said about me - this doesn't sound good for my people (talking in hallway) and referencing Robina's presence in the room or asking Robina questions (Robina not present in the room). Objective/Assessment/Plan Objective Treatment Techniques &Outcomes: Communication: - Validation, Redirection during conversation - Choice of 2-3 options (to prevent overwhelm) Feeding & Swallowing: - [id number] assistance during meal to support independence (successful) - Use of straw with *mildly thickened liquid* increases independence, reduces overt s/s aspiration PO Intake: Thin Liquid: overt s/sx aspiration with cup sip Mildly Thickened Liquid: agreeable to apple juice via cup sip - neg overt s/s aspiration Pureed Solids: neg overt s/s aspiration (accepted multiple bites of mashed potatoes/gravy before asking to listen to the programming and rest) Minced & Moist: neg overt s/s aspiration Soft & Bite Sized: oral pocketing noted throughout meal time while attempting to masticate; patient appears distracted by faint auditory sounds and will continue to breath heavily through mouth with unmasticated food in oral cavity, posing increased risk of airway occlusion, aggitation occurs if clinician suggests he swallow food in his mouth or follow with liquid wash Assessment Patient demonstrates improvements with overall oral-motor abilities to support safe po intake relative to previous few days, however rotary chew is not consistently observed during PO trials of upgraded textures to date (ie soft and bite sized); patient is likely able to tolerate minced&moist as well as transitional solids for oral gratification, but currently advise against soft&bite-sized textures, as these pose a particular risk in evening given changes in behavior(s) and observed increase in distractedness during PO intake, oral pocketing. Plan Continue outlined plan of care with recommendations below (including diet change to Level 5-Minced&Moist with 2-Mildly thickened liquids) with allowance of ice chips or teaspoon-sized sips of water only after thorough oral care to support overall patient quality of life. May consider trial of Provale cup (5-10cc) once d/c to assistive care setting to support independence. Recommendations Diet: 5-Minced & Moist (Mechancially Altered/Ground) (and transitional solids) Liquids: 2-Mildly Thick/[place] Thick Other: allowance of ice chips or teaspoon-sized sips of water only after thorough oral care Strategies/Adaptions: Upright and out of bed in a chair for all meals/snacks, Pace rate of intake, Small bites, Small sips, Alternate liquids and solids, Ensure complete mastication & swallow before next bite, Check oral cavity frequently, Feed in low-stimulation environment and Oral care at least 2x/day Supervision: Direct supervision via of [facility] staff, assist w/feeding and Frequent/periodic check-ins Additional Notes: Sita Desir MA CCC-BUILDING PERFORMANCE CONSULTANT Speech-Language Pathologist [place]#[phone] Codin treatment of swallowing dysfunction and/or oral function for feeding Total Time Spent: 55 minutes Coding
[2020-12-19] MEDS: QUEtiapine 25 MG TAB 37.5 MG PO (18:31)
[2020-12-19] MEDS: Melatonin 3 MG TAB PO (20:18)
[2020-12-19] MEDS: Carbidopa 25/Levodopa 100 TAB PO (20:18)
[2020-12-19] MEDS: Ibuprofen 200 MG TAB PO (20:18)
[2020-12-19] MEDS: Simvastatin 10 MG TAB PO (20:18)
[2020-12-20 07:27] VITALS: BP 170/79; PULSE 65; RESP 18; TEMP 36.8; O2SAT 97
[2020-12-20] MEDS: Cyanocobalamin 500 MCG TAB 1000 MCG PO (08:53)
[2020-12-20] MEDS: Sertraline 50 MG TAB PO (08:53)
[2020-12-20] MEDS: Sertraline 25 MG TAB PO (08:53)
[2020-12-20] MEDS: Folic Acid 1 MG TAB PO (08:53)
[2020-12-20] MEDS: Omega-3 Fatty Acids 1000 MG CAP PO (08:53)
[2020-12-20] MEDS: Zinc Sulfate 220 MG TAB PO (11:18)
--- NOTE | 2020-12-20 15:23 | PDOC.CMPRO ---
Care Management Progress Note S/O: Wade remains acute at [facility]; with medications changes and close monitoring. Scheduled seroquel started yesterday with good effect per MD. Palliative consult ordered and completed by Dr. Dukes yesterday with Robina and Wade; now DNR/DNI. Wade was unable to tolerate the swallow eval; discussed comfort care with Dr. Mirza; and Dr. Dukes; limited interventions at this time. [facility] requested medication changes on discharge due to high cost of Humira; this was discussed MD-MD (Dr. Mirza-Dr. Willie Hodges) with decision to discontinue Humira on discharge. Robina reports she can supply humira from the community. Robina called at [phone] to share concerns re: medications. CM coordinated MD discussion with Robina. SNF options: Robina chose the following SNF facilities-referrals pending unless noted otherwise. [facility]: referral pending, facility reports they would be unable to admit until after 14 days from exposure; 12/29/20. Covid re-test 12/22/20. [facility]: reviewing for admission-unable to accept today, will re-connect after the holiday weekend on Wednesday. Referrals faxed to [facility] ([facility]) and [facility] today. [facility], currently reviewing the referral. Possible pairing with [facility]: voicemail for [facility]: Admissions at [facility] regarding the referral. email [email or web address] provided to Robina to request additional info. [facility]: referral pending. [facility] in [place] offered as option. [facility]: Not accepting referrals. [facility]: Not accepting referrals. [facility] declined admission. [facility] declined referral. A: 80 year old male admitted to [facility] 12/13/20 for frequent falls, Parkinsonism P: SNF referrals pending. Transportation to be determined by disposition. CM continues to follow. Anticipate Wade will remain at [facility] until placement can be coordinated, he may require SWB1 while awaiting disposition.
[2020-12-20 15:37] VITALS: BP 109/66; PULSE 64; RESP 17; TEMP 36; O2SAT 97
--- NOTE | 2020-12-20 15:46 | PTTR_ITS ---
Date of service: 12/20/20 Time of Service: 10:05 PT Notes Visit Reasons: Frequent Falls, Parkinsons Inpatient Physical Therapy Treatment Note [facility] Date: 12/19/2020 PRECAUTIONS: Fall, Parkinson's, Dementia SUBJECTIVE: Wade believes he saw Zully standing in front of the T today. OBJECTIVE: PAIN: No c/o pain BED MOBILITY/TRANSFERS Sit-stand: Max A x2 Stand-sit: Min A + Mod A in a.m.; Max A x2 in p.m. GAIT Assistive Device: CLINICAL EDUCATION SPECIALIST x2 Weight bearing: Full Assist: CGA x2 Distance: 40' Deviation: Counting steps improves mobility, Several standing rests THEREX: Patient was instructed in an UE and LE strengthening program, completed in a seated position, as per flow sheet. TOILETING: Patient requires Max A x2 for toileting utilizing handheld urinal and due to incontinence. ASSESSMENT: Patient tolerated session with complaint of increased fatigue. He continues to demonstrate confusion, although not as significant as previous days. He continues to demonstrate improved gait mechanics when steps are counted out loud. PLAN: Continue with global strengthening and conditioning for improved mobility and activity tolerance. TREATMENT CODE/TIME: Session 1: 30 minutes; [id number], [id number] (10:05) Session 2: 20 minutes; [id number] (15:00)
[2020-12-20] MEDS: Acetaminophen 325 MG TAB 650 MG PO (15:56)
--- NOTE | 2020-12-20 17:51 | W.PM.PROGNOT ---
Date of Service Date of service: 12/20/20 Time of Service: 16:00 Assessment and Plan Assessment and plan (1) Parkinsonism: Status: Acute Assessment and plan: Continue sinemet as adjusted by Dr Will. Continue seroquel 37.5 mg at 7 pm as seemed to have prevented agitation last night. Discussed care with daughter Robina. Qualifiers: Parkinsonism type: Parkinson's disease Qualified Code(s): G20 - Parkinson's disease (2) Frequent falls: Status: Chronic Assessment and plan: Multifactoral (Parkinsonism, orthostasis, RA, OA). MRI brain negative PT feels that the patient is not progressing. Continue fall precautions. Will likely benefit from SNF placement on discharge. (3) Dysphagia: Status: Chronic Assessment and plan: Chose not to pursue MBS. Continue modified diet unless family decides to go with comfort foods. Should the patient have an aspiration pneumonia, do not treat with antibiotics unless it hurts, per family conversation with Dr Dukes. (4) Exposure to COVID-19 virus: Status: Acute Assessment and plan: Recheck PCR on 12/23/20. (5) DVT prophylaxis: Status: Acute Assessment and plan: TEDS/SCDS Avoid chemical DVT ppx due to h/o intraocular hemorrhage. (6) Discharge planning issues: Status: Acute Assessment and plan: DNR/DNI. On modified comfort measures (no abx unless it hurts). PT consulted. Will require SNF placement Subjective Subjective Interval history since last seen: Mr Lau states that his right hip hurts. Denies injury to it. Agrees to accept tylenol. Denies dizziness, chest pain, shortness of breath, nausea. Was very compliant last night after receiving his seroquel dose at 7 pm Exam Narrative Exam Narrative: General: Anxious frail male who is napping in a chair, A&Ox1 when wakes up, speaks very softly HEENT: EOMI, MMM Heart: RRR, no m/r/g Lungs: CTAB Abdomen: soft, nontender, nondistended Extremities: trace BLE edema, symmetric Objective Last Vital Signs Temp 36.0 C L 12/20/20 15:37 Pulse 64 12/20/20 15:37 Resp 17 12/20/20 15:37 BP 109/66 12/20/20 15:37 Pulse Ox 97 12/20/20 15:37
[2020-12-20] MEDS: QUEtiapine 25 MG TAB 37.5 MG PO (18:21)
[2020-12-20] MEDS: Ibuprofen 200 MG TAB PO (21:11)
[2020-12-20] MEDS: Carbidopa 25/Levodopa 100 TAB PO (21:11)
[2020-12-20] MEDS: Melatonin 3 MG TAB PO (21:11)
[2020-12-20] MEDS: Normal Saline Flush 10 ML SYR IVP (21:11)
[2020-12-20] MEDS: Simvastatin 10 MG TAB PO (21:11)
--- NOTE | 2020-12-21 | DI.RAD_ITS ---
Exam(s) XR HIP PELVIS ADULT BL EXAM: XR HIP PELVIS ADULT BL CLINICAL HISTORY: s/p falls; complaints of hip pain. TECHNIQUE: 2D digital imaging was performed. COMPARISON: CR RT HIP COMPLETE AP PELVIS from 09/11/2014 FINDINGS: BONES: No acute fracture is present. No bony destructive lesion is seen. Stable appearance right tota l hip prosthesis. JOINTS: No dislocation present. Mild degenerative changes of the left hip. SOFT TISSUE: Surgical clips in the region of the bladder. Vascular calcifications. IMPRESSION: No acute abnormality. DATA REPOSITORY: RADIATION DOSE DELIVERED:
[2020-12-21] MEDS: Acetaminophen 325 MG TAB 650 MG PO ×2 (04:56→12:09)
[2020-12-21] MEDS: Normal Saline Flush 10 ML SYR IVP (04:56)
[2020-12-21 05:13] VITALS: BP 163/81; PULSE 72; RESP 18; TEMP 36.7; O2SAT 100
[2020-12-21 07:37] VITALS: BP 181/75; PULSE 69; RESP 17; TEMP 36.5; O2SAT 99
[2020-12-21] MEDS: Cyanocobalamin 500 MCG TAB 1000 MCG PO (08:50)
[2020-12-21] MEDS: Folic Acid 1 MG TAB PO (08:50)
[2020-12-21] MEDS: Sertraline 25 MG TAB PO (08:50)
[2020-12-21] MEDS: Omega-3 Fatty Acids 1000 MG CAP PO (08:50)
[2020-12-21] MEDS: Sertraline 50 MG TAB PO (08:51)
--- NOTE | 2020-12-21 10:26 | PTTR_ITS ---
Date of service: 12/21/20 Time of Service: 10:03 PT Notes Visit Reasons: Frequent Falls, Parkinsons Inpatient Physical Therapy Treatment Note [facility] Date: 12/21/2020 PRECAUTIONS: Fall, Parkinson's, Dementia SUBJECTIVE: Wade remains confused, stating that he believes someone is attempting to access his Facebook account to get his information. He states that he feels taking a walk will tire him out and help him get some rest. He is pleasant and agreeable to participating in PT. OBJECTIVE: PAIN: No c/o pain BED MOBILITY/TRANSFERS Sit-supine: Max A x2 with HOB flat Sit-stand: Max A x2 Stand-sit: Max A x2 GAIT Assistive Device: BROADCAST FIELD SUPERVISOR x2 Weight bearing: Full Assist: CGA x2 Distance: 25' Deviation: Counting steps improves mobility, several standing rests THEREX: Patient refused ther ex. ASSESSMENT: Patient tolerated session with complaint of increased fatigue. He continues to demonstrate confusion. He continues to demonstrate improved gait mechanics when steps are counted out loud. PLAN: Continue with global strengthening and conditioning for improved mobility and activity tolerance. TREATMENT CODE/TIME: 10 minutes; [id number] (10:03)
[2020-12-21] MEDS: traMADol 50 MG TAB PO ×2 (14:55→23:40)
--- NOTE | 2020-12-21 17:01 | PGE_ITS ---
Date of Service Date of service: 12/21/20 Time of Service: 17:01 Assessment and Plan Assessment and plan (1) Parkinsonism: Status: Acute Assessment and plan: Continue sinemet as adjusted by Dr Will. Continue seroquel 37.5 mg at 7 pm as seemed to have prevented agitation last night. Qualifiers: Parkinsonism type: Parkinson's disease Qualified Code(s): G20 - Parkinson's disease (2) Frequent falls: Status: Chronic Assessment and plan: Multifactoral (Parkinsonism, orthostasis, RA, OA). MRI brain negative as December 16 PT feels that the patient is not progressing. Continue fall precautions. Will likely benefit from SNF placement on discharge. Check x-ray of the pelvis and both hips to rule out occult fracture. However given his comorbidities it is unlikely that his family would want him to undergo surgery. If occult fracture is found we will need to discuss further with his family as to how they want us to treat. (3) Dysphagia: Status: Chronic Assessment and plan: Chose not to pursue MBS. Continue modified diet unless family decides to go with comfort foods. Should the patient have an aspiration pneumonia, do not treat with antibiotics unless it hurts, per family conversation with Dr Dukes. Qualifiers: Dysphagia type: unspecified Qualified Code(s): R13.10 - Dysphagia, unspecified (4) Exposure to COVID-19 virus: Status: Acute Assessment and plan: Recheck PCR on 12/23/20. Per information gained from the staff patient was exposed to his granddaughter who had COVID-19.Patient's had two - COVID-19 test. First 17 November 20262020 seconds December 18, 2020. (5) DVT prophylaxis: Status: Acute Assessment and plan: TEDS/SCDS Avoid chemical DVT ppx due to h/o intraocular hemorrhage and frequent falls (6) Discharge planning issues: Status: Acute Assessment and plan: DNR/DNI. On modified comfort measures (no abx unless it hurts). PT consulted. Will require SNF placement Subjective Subjective Interval history since last seen: 80-year-old male with a history of parkinsonism, rheumatoid arthritis, hypertension, prostate cancer, essential hypertension who was admitted yesterday after sustaining frequent falls at home. He has been unable to care for himself. CT of his head showed mild generalized cerebral atrophy no cerebral bleed. There is some questionable mild decreased attenuation left occipital lobe compared to the right possible left occipital infarct indeterminate age. MRI has been ordered but will not be completed till next week. Patient was ambulate today with physical therapy.Patient tolerated session with some increased fatigue. He required maximal assistance x2 with bed mobilities and transfers. He required an assistive device to get him out of bed and to ambulate him. He went about 25 feet. However nursing notes that he has had increased complaints of right hip pain with grimacing when they reposition him and with activity. There is no x-rays were obtained on admission of his pelvis or hips. I will order an x-ray of his pelvis and both hips to rule out occult fracture. Exam Narrative Exam Narrative: Patient is calm relaxed lying in bed with his eyes closed. When I awaken him, he muttered incoherent words. Examination of both hips revealed no bruising and no palpable displacement of his femur. There appears to be no foreshortening of his legs. He has scars over both knees consistent with previous total knee replacements. Upon internal and external rotation of both hips I cannot elicit any pain. His lungs are clear to auscultation his heart is regular with no appreciable murmur rub. Abdomen is soft scaphoid nontender. B owel sounds are present. Objective Last Vital Signs Temp 36.5 C 12/21/20 07:37 Pulse 69 12/21/20 07:37 Resp 17 12/21/20 07:37 BP 181/75 H 12/21/20 07:37 Pulse Ox 99 12/21/20 07:37
[2020-12-21] MEDS: QUEtiapine 25 MG TAB 37.5 MG PO (18:17)
--- NOTE | 2020-12-21 18:31 | DI.VRAD_ITS ---
PROCEDURE INFORMATION: Exam: XR Right Hip Exam date and time: 12/21/2020 5:11 PM Age: 80 years old Clinical indication: Injury or trauma; Fall; Blunt trauma (contusions or hematomas); Bilateral; Hip TECHNIQUE: Imaging protocol: XR Right hip. Views: 2 or 3 views hip with pelvis when performed. COMPARISON: CT ABDOMEN PELVIS WO/W 01/14/2020 1:35 PM FINDINGS: Bones/joints: Right hip prosthesis in place. Soft tissues: Unremarkable. Organs: Status post prostatectomy. Vasculature: Mild atherosclerotic change noted in the vasculature. IMPRESSION: No evidence for acute posttraumatic abnormality. Dictated and Authenticated by: Rajani Huerta MD. Ordering:[facility] Bria Marroquin MD
[2020-12-21] MEDS: Ibuprofen 200 MG TAB PO (20:34)
[2020-12-21] MEDS: Simvastatin 10 MG TAB PO (20:34)
[2020-12-21] MEDS: Melatonin 3 MG TAB PO (20:34)
[2020-12-21] MEDS: Carbidopa 25/Levodopa 100 TAB PO (20:34)
[2020-12-21 23:10] VITALS: BP 143/63; PULSE 77; RESP 17; TEMP 37; O2SAT 97
[2020-12-22] MEDS: Omega-3 Fatty Acids 1000 MG CAP PO (08:41)
[2020-12-22] MEDS: Sertraline 25 MG TAB PO (08:41)
[2020-12-22] MEDS: Folic Acid 1 MG TAB PO (08:41)
[2020-12-22] MEDS: Cyanocobalamin 500 MCG TAB 1000 MCG PO (08:41)
[2020-12-22] MEDS: Sertraline 50 MG TAB PO (08:41)
[2020-12-22] MEDS: traMADol 50 MG TAB PO ×2 (08:54→17:02)
[2020-12-22 09:36] VITALS: BP 127/77; PULSE 71; RESP 16; TEMP 36.6; O2SAT 98
[2020-12-22 10:59] LABS: Source Nasal/Nares
--- NOTE | 2020-12-22 12:26 | PT.INTREAT ---
Date of service: 12/22/20 Time of Service: 09:56 PT Notes Visit Reasons: Frequent Falls, Parkinsons Inpatient Physical Therapy Treatment Note [facility] Date: 12/22/2020 PRECAUTIONS: Fall, Parkinson's, Dementia SUBJECTIVE: Wade is pleasant and agreeable to participating in PT. OBJECTIVE: PAIN: No c/o pain BED MOBILITY/TRANSFERS Supine-sit: Max A x2 Sit-stand: Max A x2 Stand-sit: Max A x2 GAIT Assistive Device: SENIOR INTEGRATION ARCHITECT x2 FWW Weight bearing: Full Assist: Min A x2 Distance: 15' with SENIOR INTEGRATION ARCHITECT x2 10' with FWW Deviation: Counting steps improves mobility, several standing rests THEREX: Patient was instructed in an UE and LE strengthening program, completed in a seated position, as per flow sheet. ASSESSMENT: Patient tolerated session with complaint of increased fatigue. He continues to demonstrate improved gait mechanics when steps are counted out loud, as well as with HHAx2 versus FWW. PLAN: Continue with global strengthening and conditioning for improved mobility and activity tolerance. TREATMENT CODE/TIME: 27 minutes; [id number], [id number] (09:56)
[2020-12-22 12:58] LABS: COVID-19 PCR Negative (Negative)
[2020-12-22 15:43] VITALS: BP 112/66; PULSE 57; RESP 14; TEMP 36.5; O2SAT 97
--- NOTE | 2020-12-22 17:14 | PGE_ITS ---
Date of Service Date of service: 12/22/20 Time of Service: 17:15 Assessment and Plan Assessment and plan (1) Parkinsonism: Status: Acute Assessment and plan: Continue sinemet as adjusted by Dr Will. Continue seroquel 37.5 mg at 7 pm to treat his behaviorial issues which seem better controlled. Qualifiers: Parkinsonism type: Parkinson's disease Qualified Code(s): G20 - Parkinson's disease (2) Frequent falls: Status: Chronic Assessment and plan: Multifactoral (Parkinsonism, orthostasis, RA, OA). MRI brain negative as December 16 PT feels that the patient is not progressing. Continue fall precautions. Will likely benefit from SNF placement on discharge. xray of his pelvis and both hips was negative for frx last night. cont prn tramadol for his pains which are diffuse, probably musculoskeletal but do not seem to be any particular injury. Today Brad said that he seemed to have pain w/ even light touch of his shins but was better after the tramadol. (3) Dysphagia: Status: Chronic Assessment and plan: Chose not to pursue MBS. Continue modified diet unless family decides to go with comfort foods. Should the patient have an aspiration pneumonia, do not treat with antibiotics unless it hurts, per family conversation with Dr Dukes. Qualifiers: Dysphagia type: unspecified Qualified Code(s): R13.10 - Dysphagia, unspecified (4) Exposure to COVID-19 virus: Status: Acute Assessment and plan: Repeat Covid-19 PCR was negative today. Per information gained from the staff patient was exposed to his granddaughter who had COVID-19.Patient's had two - COVID-19 test. First 17 November [id number] seconds December 18, 2020. (5) DVT prophylaxis: Status: Acute Assessment and plan: TEDS/SCDS Avoid chemical DVT ppx due to h/o intraocular hemorrhage and frequent falls (6) Discharge planning issues: Status: Acute Assessment and plan: DNR/DNI. On modified comfort measures (no abx unless it hurts). PT consulted. Will require SNF placement. Per Racquel, multiple referrals have been made to area SNF facilities. See CM notes Subjective Subjective Interval history since last seen: Per his nurse, Brad, patient ate all of his dinner tonight. No coughing or choking spells. He tolerates po meds w/ crushing them and mixing w/ pudding. Exam Narrative Exam Narrative: Elderly male who is non verbal d/t his Parkinsonims, he will attempt conversation but make unintelligible soft sounds that are not dis cernible Lungs: decreased breath sounds both bases; no rhonchi or wheezing Heart: RRR Abdomen: soft, nondistended, nontender Extremities: no edema or ulcers and no cyanois. No deformities. No pain w/ ROM of his legs. Objective Last Vital Signs Temp 36.5 C 12/22/20 15:43 Pulse 57 L 12/22/20 15:43 Resp 14 12/22/20 15:43 BP 112/66 12/22/20 15:43 Pulse Ox 97 12/22/20 15:43 Laboratory Results - last 24 hr 12/22/20 10:50 COVID-19 Source Nasal/Nares SARS-CoV-2 (PCR) Negative
[2020-12-22] MEDS: QUEtiapine 25 MG TAB 37.5 MG PO (18:09)
[2020-12-22 20:55] VITALS: BP 99/59; RESP 18; TEMP 36.9; O2SAT 94
[2020-12-22] MEDS: Carbidopa 25/Levodopa 100 TAB PO (21:00)
[2020-12-22] MEDS: Ibuprofen 200 MG TAB PO (21:00)
[2020-12-22] MEDS: Melatonin 3 MG TAB PO (21:00)
[2020-12-22] MEDS: Simvastatin 10 MG TAB PO (21:00)
[2020-12-23 08:46] VITALS: BP 150/76; PULSE 65; RESP 16; TEMP 36.4; O2SAT 97
[2020-12-23] MEDS: Omega-3 Fatty Acids 1000 MG CAP PO (08:49)
[2020-12-23] MEDS: Senna TAB 1 TAB PO (08:50)
[2020-12-23] MEDS: Sertraline 50 MG TAB PO (08:50)
[2020-12-23] MEDS: Bisacodyl 5 MG TABEC PO (08:50)
[2020-12-23] MEDS: Cyanocobalamin 500 MCG TAB 1000 MCG PO (08:50)
[2020-12-23] MEDS: Sertraline 25 MG TAB PO (08:50)
[2020-12-23] MEDS: traMADol 50 MG TAB PO ×2 (08:50→15:05)
[2020-12-23] MEDS: Folic Acid 1 MG TAB PO (08:50)
[2020-12-23] MEDS: Zinc Sulfate 220 MG TAB PO (08:53)
--- NOTE | 2020-12-23 10:43 | PT.INTREAT ---
PT Notes Visit Reasons: Frequent Falls, Parkinsons Inpatient Physical Therapy Treatment Note [facility] Date: 12/23/20 PRECAUTIONS:FAll, PD, Dementia SUBJECTIVE: Pt complains of back pain. OBJECTIVE: Sit-stand: Max 2 Stand-sit: Max x2 GAIT Assistive Device: HHAx2 Weight bearing: Full Assist: [] Distance: Pt refused walking once in standing due to complaints of back discomfort. THEREX: I attempted assisting pt with UE and LE strengthening ther ex but he was more resistive and c/o back discomfort. We were not able to accomplish much do to this. ASSESSMENT: Pt did not tolerate today's session well due to c/o back discomfort. PLAN: Cont as per PT POC. TREATMENT CODE/TIME: 10-10:10 (10) TA
[2020-12-23] MEDS: Acetaminophen 325 MG TAB 650 MG PO (12:05)
--- NOTE | 2020-12-23 14:05 | W.PM.PROGNOT ---
Date of Service Date of service: 12/23/20 Time of Service: 14:05 Assessment and Plan Assessment and plan (1) Parkinsonism: Status: Acute Assessment and plan: Sinemet adjusted last per Dr. Fisher Seroquel 37.5 mg started last week and given qpm for agitation and seems to have improved his nocturnal behavior issues Qualifiers: Parkinsonism type: Parkinson's disease Qualified Code(s): G20 - Parkinson's disease (2) Frequent falls: Status: Chronic Assessment and plan: multifactorial including RA, dementia, Parkinsonism. Patient refused P.T. today d/t low back pains and would not even participate in bedside strengthening exercises. Yesterday he walked w/ FWW 10 ft x 1 then 15 ft x 1 but requires a lot of assistance (3) Dysphagia: Status: Chronic Assessment and plan: Chose not to pursue MBS. Continue modified diet unless family decides to go with comfort foods. Should the patient have an aspiration pneumonia, do not treat with antibiotics unless it hurts, per family conversation with Dr Dukes. Per his nurse, patient seems to be tolerating his diet and noticeable choking spells Qualifiers: Dysphagia type: unspecified Qualified Code(s): R13.10 - Dysphagia, unspecified (4) Exposure to COVID-19 virus: Status: Acute Assessment and plan: multiple repeat COVID-19 tests have been negative including yesterday. (5) DVT prophylaxis: Status: Acute Assessment and plan: TEDS/SCDS Avoid chemical DVT ppx due to h/o intraocular hemorrhage and frequent falls (6) Discharge planning issues: Status: Acute Assessment and plan: DNR/DNI. On modified comfort measures (no abx unless it hurts). has placed multiple referrals to SNF facilities. Awaiting responses. Some have already turned him down Subjective Subjective Interval history since last seen: Patient seen w/ his primary nurse, Brad and also while his daughter Robina was present. Robina expressed several concerns including Wade having excessive coughing and secretions. She also is concerned over his rapid decline in his congition and worsening tremors. I explained to her that his Parkinsonism is being addressed by neurology w/ recent adjustment in his Sinemet. Oxybutynin was stopped d/t worsening congition but this has not seemed to have helped. He has been started on prn Tramadol for pain from his RA. This seems to help but does cause intermittent sedation. He seems to be coughing more and bringing up thick stringy mucous. I told her that I would try an antisialogogue to see if this helps. He is able to mobilize his mucous but has paroysms. Exam Narrative Exam Narrative: Elderly male sitting up in his chair. He is alert and this is the most animated I have seen him this weekend. He is listening to his daughter read him a [employer] book. HEENT: I examined his oropharynx right after one of his paroxysms. There was no residual mucous and no food particles. Lungs w/ diminished breath sounds over the bases; no rhonchi Heart: RRR Abdomen; soft, nondistended Objective Last Vital Signs Temp 36.4 C L 12/23/20 08:46 Pulse 65 12/23/20 08:46 Resp 16 12/23/20 08:46 BP 150/76 H 12/23/20 08:46 Pulse Ox 97 12/23/20 08:46
[2020-12-23] MEDS: Glycopyrrolate 1 MG TAB PO (15:05)
[2020-12-23 15:40] VITALS: BP 165/74; PULSE 66; RESP 16; TEMP 36.6; O2SAT 95
[2020-12-23] MEDS: QUEtiapine 25 MG TAB 37.5 MG PO (18:10)
[2020-12-23] MEDS: Simvastatin 10 MG TAB PO (19:47)
[2020-12-23] MEDS: Ibuprofen 200 MG TAB PO (22:02)
[2020-12-23] MEDS: Carbidopa 25/Levodopa 100 TAB PO (22:02)
[2020-12-23] MEDS: Melatonin 3 MG TAB PO (22:02)
[2020-12-24 09:02] VITALS: BP 138/68; PULSE 64; RESP 18; TEMP 36.7; O2SAT 98
[2020-12-24] MEDS: Cyanocobalamin 500 MCG TAB 1000 MCG PO (09:12)
[2020-12-24] MEDS: Omega-3 Fatty Acids 1000 MG CAP PO (09:12)
[2020-12-24] MEDS: Bisacodyl 5 MG TABEC PO (09:12)
[2020-12-24] MEDS: Polyethylene Glycol 3350 17 GM PACKET PO (09:12)
[2020-12-24] MEDS: Sertraline 50 MG TAB PO (09:12)
[2020-12-24] MEDS: Folic Acid 1 MG TAB PO (09:12)
[2020-12-24] MEDS: Senna TAB 1 TAB PO ×2 (09:12→19:37)
[2020-12-24] MEDS: Docusate Sodium 100 MG CAP PO ×2 (09:12→19:37)
[2020-12-24] MEDS: Sertraline 25 MG TAB PO (09:12)
[2020-12-24] MEDS: traMADol 50 MG TAB PO (09:21)
[2020-12-24] MEDS: Magnesium Citrate 300 ML BTL PO (10:01)
--- NOTE | 2020-12-24 15:28 | CMPROGNOTE_ITS ---
Care Management Progress Note S/O: Placement efforts continue. Wade continues to be closely monitored and treated, his daughter and guardian Robina connects well with providers re: medical inquiries and concerns. CM continues to follow. Alvaro-updated clinicals faxed today, left voicemail. No admission prior to 12/29. Covid test is negative. [facility] F#[phone] is a Level 3, they do have beds and are currently reviewing the referral. Awaiting call back, left message again to day-directed to call early tomorrow. (Hospice pairing available).? Leticia in [place]: voicemail again today for [facility]. [facility]: referral pending. [facility]: updated clinicals faxed today. Left VM for Magaly. CM reviewed the above with Robina, via email. A: 80 year old male admitted to [facility] 12/13/20 for frequent falls, Parkinsonism P: SNF referrals pending. Transportation to be determined by disposition. CM continues to follow. Anticipate Wade will remain at [facility] until placement can be coordinated, he may require SWB1 while awaiting disposition.
--- NOTE | 2020-12-24 15:28 | PDOC.CMPRO ---
Care Management Progress Note S/O: Placement efforts continue. Wade continues to be closely monitored and treated, his daughter and guardian Robina connects well with providers re: medical inquiries and concerns. CM continues to follow. Alvaro-updated clinicals faxed today, left voicemail. No admission prior to 12/29. Covid test is negative. [facility] F#[phone] is a Level 3, they do have beds and are currently reviewing the referral. Awaiting call back, left message again today-directed to call early tomorrow. (Hospice pairing available).? Leticia in [place]: voicemail again today for [facility]. [facility]: referral pending. [facility]: updated clinicals faxed today. Left VM for Magaly. CM reviewed the above with Rboina, via email. A: 80 year old male admitted to [facility] 12/13/20 for frequent falls, Parkinsonism P: SNF referrals pending. Transportation to be determined by disposition. CM continues to follow. Anticipate Wade will remain at [facility] until placement can be coordinated, he may require SWB1 while awaiting disposition.
--- NOTE | 2020-12-24 15:29 | W.PM.PROGNOT ---
Date of Service Date of service: 12/24/20 Time of Service: 15:29 Assessment and Plan Assessment and plan (1) Parkinsonism: Status: Acute Assessment and plan: Sinemet adjusted last per Dr. Fisher Seroquel 37.5 mg started last week and given qpm for agitation and seems to have improved his nocturnal behavior issues Qualifiers: Parkinsonism type: Parkinson's disease Qualified Code(s): G20 - Parkinson's disease (2) Frequent falls: Status: Chronic Assessment and plan: multifactorial including RA, dementia, Parkinsonism. Patient discharged from P.T. (3) Dysphagia: Status: Chronic Assessment and plan: modified barium swallow was declined by patient/family. We are allowing him to eat whatever he tolerates w/ the understanding that he is at risk of aspiration. So far he has been tolerating his diet Qualifiers: Dysphagia type: unspecified Qualified Code(s): R13.10 - Dysphagia, unspecified (4) Exposure to COVID-19 virus: Status: Acute Assessment and plan: multiple repeat COVID-19 tests have been negative including latest from 12/22 (5) DVT prophylaxis: Status: Acute Assessment and plan: TEDS/SCDS Avoid chemical DVT ppx due to h/o intraocular hemorrhage and frequent falls (6) Discharge planning issues: Status: Acute Assessment and plan: DNR/DNI. On modified comfort measures (no abx unless it hurts). has placed multiple referrals to SNF facilities. Awaiting responses. Some have already turned him down Subjective Subjective Interval history since last seen: Patient is still awaiting SNF referrals. .. informed me that they are dismissing him as he has plateaued and not making any gains. I saw the patient while his daughter was here and answered her questions. Patient did not eat as well today, only 25% for breakfast and lunch. However no choking spells. 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 Daughter inquired about having Dr. Willingham see the patient for follow up. I explained to her that Dr. Fisher usually rounds at the end of the office day. Exam Narrative Exam Narrative: awake, alert but oriented only to person speech is slow w/ stuttering/hesitating pattern lungs are clear; no coughing spells even after his daughter gave him a drink of water heart: rrr, sysolic murmur over apex abdomen: soft, nontender, nondistended motor: some tremulousness but not as bad as over the weekend, some rigidity in movement of his arms but better (Brad, his nurse indicated that part of problem w/ ambulation is they get him up w/ the steady lift williams and when he is standing patient does not want to initiate his steps, I told Brad that this is typical in Parkinsonism). Objective Last Vital Signs Temp 36.7 C 12/24/20 09:02 Pulse 64 12/24/20 09:02 Resp 18 12/24/20 09:02 BP 138/68 12/24/20 09:02 Pulse Ox 98 12/24/20 09:02
--- NOTE | 2020-12-24 16:57 | PHA.REVIEW ---
Pharmacy Admission Review - Admission Clinical Review (Last Updated 12/19/20 @ 17:53 by Lilia Dukes MD) Hearing abnormally acute (Acute) Hypophonia (Acute) Exposure to COVID-19 virus (Acute) DNI (do not intubate) (Acute) DNR (do not resuscitate) (Acute) POLST (Physician Orders for Life-Sustaining Treatment) (Acute) Palliative care patient (Acute) Goals of care, counseling/discussion (Acute) Hypotension (Acute) Discharge planning issues (Acute) DVT prophylaxis (Acute) Salivary secretion (Acute) Constipation (Acute) Parkinsonism (Acute) Dysphagia (Acute) Rheumatoid arthritis (Acute 10/01/14) POLLEN Allergy (Unknown, Uncoded 12/13/20 12:47) dust Adverse Reaction (Unknown, Uncoded 12/13/20 12:47) PND, RUNNY NOSE Resuscitation Status DNR/DNI Height 5 ft 6 in Weight 61 kg - Renal Dosing Renal Dosing: BUN 23 mg/dL (7-18) H 12/17/20 06:49 Creatinine 1.0 mg/dL (0.70-1.30) 12/17/20 06:49 Medications needing adjustments: Reviewed List of meds needing interventions: eCrCl 52 ml/min - Anticoagulation Anticoagulation: Hgb 12.2 g/dL (13.5-17.5) L 12/17/20 06:49 Hct 35.3 % (40.0-50.0) L 12/17/20 06:49 Plt Count 175 10^3/uL (130-400) 12/17/20 06:49 Creatinine 1.0 mg/dL (0.70-1.30) 12/17/20 06:49 DVT Prophylaxis: N/A Therapeutic Anticoagulation: N/A - Opiate Usage Evaluate Pain Scale/Pains Meds: N/A - Relevant Labs Sodium 137 mmol/L (136-145) 12/17/20 06:49 Potassium 3.9 mmol/L (3.5-5.1) 12/17/20 06:49 Chloride 101 mmol/L (98-107) 12/17/20 06:49 Magnesium 1.6 mg/dL (1.8-2.4) L 12/17/20 06:49 Electrolytes, C-Reactive P, ESR: Reviewed - DM Control DM Control: Glucose 108 mg/dL (74-106) H 12/17/20 06:49 Insulin Dosing: N/A - Heart Failure/NE Heart Failure/NE: Troponin I < 0.05 ng/mL (<0.06) 12/16/20 14:43 EF%, COCO's, B-Blockers, Diuretics: Reviewed - BP Control BP Control: Blood Pressure 138/68 If elevated: Reviewed - Qtc Review If Elevated: N/A - IV to PO Switch IV Medications: Reviewed - Home Meds Relevent Home Meds Not ordered & why?: humira (non-form), oxybutynin, cetirizine, amitriptyline - Current meds Current Medication Order Review: Reviewed (DDI between sinimet and quetiapine -- dopamine agonist vs. dopamine blocking activity of atypical antipsychotic: MD is aware and our neurologist recommended using quetiapine in this situation, does have better data then other atypicals in this situation)
--- NOTE | 2020-12-24 17:33 | W.PM.PROGNOT ---
Date of Service Date of service: 12/24/20 Time of Service: 17:33 Assessment and Plan Assessment and plan (1) Frequent falls: Status: Chronic (2) Memory loss: Status: Chronic (3) Parkinsonism: Status: Acute Assessment and plan: Mr. Lau is a 80 year-old, right-handed man who was admitted with the following: #1. Parkinsons, weakness, and falls complicated by severe OA/RA. Continue Sinemet 25/250 TID + 25/100mg HS. Swallowing/speech seem improved. No drooling today. He is awaiting placement. #2. Sundowning in the setting of moderate-stage dementia. Continue Seroquel 37.5mg HS. Prn lorazepam. Qualifiers: Parkinsonism type: Parkinson's disease Qualified Code(s): G20 - Parkinson's disease Subjective Subjective Interval history since last seen: Wade remains confused. Sleeping well on Seroquel. 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 Speech is pretty good today. No significant secretions. No drooling. Inpatient PT has been stopped due to lack of improvement. Awaiting placement. Exam Narrative Exam Narrative: Physical Exam: Sinemet taken ~5hours prior Constitutional: Patient of apparent stated age, no acute distress, mild hypomima Neuro: MS/Language/Speech: Alert, oriented, clear language (fluency and comprehension), mild dysarthria; moderate hypophonia Motor: Bilateral wrist rigidity, R>L, severe; ?cogwheeling - none obvious. Mild diffuse bradykinesia. FMM reduced bilaterally, R=L, no pronator drift. 4+++/5 L hip flexor and 3-/5 R hip flexor. 5/5 all else in LE. No resting tremor today. Bilateral hand atrophy. Minimal bilateral UE postural tremor and dysmetria. Coordination: Finger to nose performed with subtle bilateral UE dysmetria Gait: not tested Objective Last Vital Signs Temp 36.7 C 12/24/20 09:02 Pulse 64 12/24/20 09:02 Resp 18 12/24/20 09:02 BP 138/68 12/24/20 09:02 Pulse Ox 98 12/24/20 09:02
[2020-12-24] MEDS: QUEtiapine 25 MG TAB 37.5 MG PO (18:06)
[2020-12-24 19:00] VITALS: BP 131/71; PULSE 73; RESP 18; TEMP 35.7; O2SAT 96
[2020-12-24] MEDS: Simvastatin 10 MG TAB PO (19:37)
[2020-12-24] MEDS: Ibuprofen 200 MG TAB PO (21:29)
[2020-12-24] MEDS: Melatonin 3 MG TAB PO (21:29)
[2020-12-24] MEDS: Carbidopa 25/Levodopa 100 TAB PO (21:31)
--- NOTE | 2020-12-25 | DI.RAD_ITS ---
Exam(s) XR HIP PELVIS ADULT BL EXAM: XR HIP PELVIS ADULT BL CLINICAL HISTORY: s/p fall. TECHNIQUE: 2D digital imaging was performed. COMPARISON: CR,XR XR HIP PELVIS ADULT BL from 12/21/2020 FINDINGS: There is no obvious pelvic or hip fracture. Right hip prosthesis is noted and is not dislocated nor evidence of loosening. Mild degenerative changes in the opposite-left hip are noted. SI joints appe ar age-appropriate. IMPRESSION: No fracture evident. DATA REPOSITORY: RADIATION DOSE DELIVERED:
--- NOTE | 2020-12-25 | DI.RAD_ITS ---
Exam(s) XR KNEE LT 3V AP,LAT,JOSUE EXAM: XR KNEE LT 3V AP,LAT,JOSUE CLINICAL HISTORY: s/p fall; knee pain. TECHNIQUE: 2D digital imaging was performed. COMPARISON: CR,XR XR KNEE RT 3V AP,LAT,JOSUE from 12/25/2020 FINDINGS: Satisfactory position alignment of the components of the left knee prosthesis. No fracture or obviou s loosening evident. Vascular calcification in the popliteal artery and calf runoff vessels noted. IMPRESSION: No acute fracture DATA REPOSITORY: RADIATION DOSE DELIVERED:
--- NOTE | 2020-12-25 | DI.RAD_ITS ---
Exam(s) XR WRIST RT COMPLETE EXAM: XR WRIST RT COMPLETE CLINICAL HISTORY: traumatic fall; wrist pain. TECHNIQUE: 2D digital imaging was performed. COMPARISON: No exams were available for comparison FINDINGS: No evidence of acute fracture. Severe advanced narrowing of the radiocarpal joint is noted as is sev ere narrowing of all the inter carpal articulations, also including the intercarpal and carpometacarp al joints. No osseous lesions.. IMPRESSION: Severe multilevel degenerative changes. Osteopenia. No acute fracture evident DATA REPOSITORY: RADIATION DOSE DELIVERED:
--- NOTE | 2020-12-25 | DI.RAD_ITS ---
Exam(s) XR KNEE RT 3V AP,LAT,JOSUE EXAM: XR KNEE RT 3V AP,LAT,JOSUE CLINICAL HISTORY: s/p fall; knee pain. TECHNIQUE: 2D digital imaging was performed. COMPARISON: CR LEFT KNEE 3 VIEW COMPLETE from 09/13/2010 FINDINGS: Satisfactory position alignment of the components of the prosthesis. No obvious fracture or loosenin g. Vascular calcification noted. IMPRESSION: Arthroplasty. No fracture evident DATA REPOSITORY: RADIATION DOSE DELIVERED:
--- NOTE | 2020-12-25 | DI.CT_ITS ---
Exam(s) CT ORBITS WO EXAM: CT ORBITS WO CLINICAL HISTORY: s/p trauma. TECHNIQUE: Imaging Protocol: Axial computed tomography images with coronal and sagittal reformatted images were created and reviewed. No IV contrast COMPARISON: CT CT HEAD CERVICAL SPINE WO from 12/25/2020 FINDINGS: MAXILLOFACIAL CT SCAN: There is evidence of scleral banding both orbits. There is an asymmetric density in the left orbit c ontiguous with the posterior aspect of the globe and deviating the optic nerve slightly medially. Th is measures 1.1 cm wide by 0.6 cm AP. There does not appear to be a contiguous mass within the globe itself. There is fracture of the roof of the right orbit and the subtle fracture of the roof of the left orbi t. The right orbital roof fracture exhibits mild displacement. Left orbital roof fracture exhibits no significant displacement. There is no evidence of orbital floor fracture. No fractures lateral w alls. No evidence of fluid levels within the maxillary sinuses. Mild amount of fluid noted in the s phenoid sinuses. IMPRESSION: There fractures of both orbital roofs, slightly more evident on the right side. No fractures the orb ital floors. There is an exophytic mass off the posterior aspect of the left orbital globe which measures 11 x 6 m illimeters and is not associated with an obvious contiguous mass within the ipsilateral globe. This mass is immediately adjacent to the optic nerve and slightly deviates the optic nerve medially. No o ther findings in the retro conal fat. I note that there has been scleral banding of the ipsilateral orbit. There is also some overlying soft tissue swelling. Study 1st read by [facility] Final report called by myself to ER physician 12/26/2020 at 9:15 a.m. RADIATION DOSE DELIVERED: 289.12mGy.cm Total DLP DATA REPOSITORY: All CT scans at this facility are submitted to the National Radiology Data Registry (NRDR) Dose Index Registry (DIR) with the [employer] ([employer]). RADIATION OPTIMIZATION: All CT scans at this facility use at least one of these dose optimization te chniques: automated exposure control; mA and/or kV adjustment per patient size (includes targeted exa ms where dose is matched to clinical indication); or iterative reconstruction.
--- NOTE | 2020-12-25 | DI.CT_ITS ---
Exam(s) CT HEAD CERVICAL SPINE WO EXAM: CT HEAD CERVICAL SPINE WO CLINICAL HISTORY: trauma. TECHNIQUE: Imaging Protocol: Axial computed tomography images with coronal and sagittal reformatted images were created and reviewed COMPARISON: CT CT HEAD WO from 12/13/2020 FINDINGS: BRAIN: There is subtle orbital fractures (see separate CT maxillofacial report). There is pre orbital swell ing on the left side, this being the side of prior scleral banding and there is also a [address] well-defined mass contiguous with the posterior aspect of the left orbital globe extending into t he retro conal fat with the well-defined border and deviating the ipsilateral optic nerve slightly me dially. Similar findings not seen in the opposite-right orbit. There is no evidence of intracranial hemorrhage, mass effect, or shift of midline structures. There are no extra-axial fluid collections. The ventricles are not enlarged or shifted and there is no blo od within the ventricular system nor within the basal cisterns. No pneumothorax cephalad as. There is some periventricular hypodensity consistent with chronic small vessel disease. Motion artifact in the posterior fossa CERVICAL SPINE: No evidence of acute fracture. Multilevel chronic degenerative disc disease with disc space narrowin g at each level. Also mild degenerative anterolisthesis of C3 upon C4, approximately 3 millimeters a nd related to degenerative facet arthropathy. There is calcification posterior to the spinous process is lower cervical spine, within the supraspin ous ligament. There does not appear to be an actual fracture of the spinous process. No facet malal ignment. IMPRESSION: No acute intracranial findings on this noninfused CT scan of the brain.Orbital fractures and left orb ital masses described above. Further discussed on the maxillofacial CT scan. See that separate repo rt. Multilevel degenerative changes. Mild degenerative anterolisthesis of C3 upon C4, related to facet a rthrosis. Calcification in the supraspinous ligament noted. RADIATION DOSE DELIVERED: 1,530.78mGy.cm Total DLP DATA REPOSITORY: All CT scans at this facility are submitted to the National Radiology Data Registry (NRDR) Dose Index Registry (DIR) with the [employer] (ACR). RADIATION OPTIMIZATION: All CT scans at this facility use at least one of these dose optimization te chniques: automated exposure control; mA and/or kV adjustment per patient size (includes targeted exa ms where dose is matched to clinical indication); or iterative reconstruction.
--- NOTE | 2020-12-25 09:10 | PDOC.CMPRO ---
- If Service Date Differs Date of service: 12/25/20 Time of Service: 09:20 Care Management Progress Note S/O: Placement efforts continue. Wade continues to be closely monitored and treated, his daughter and guardian Robina connects well with providers re: medical inquiries and concerns. CM continues to follow. [facility] offered for 12/30/20. Admissions will call tomorrow to inform of [facility] needs, CM to provide offer to Robina. [facility] F#[phone] is a Level 3, they do have beds and are currently reviewing the referral. Awaiting call back, left message again today-directed to call early tomorrow. (Hospice pairing available).? [facility] in [place]: voicemail again today for [facility]: referral pending. [facility]: declined referral today. CM reviewed the above with Robina, via email. A: 80 year old male admitted to [facility] 12/13/20 for frequent falls, Parkinsonism P: SNF referrals pending. Transportation to be determined by disposition. CM continues to follow. Anticipate Wade will remain at [facility] until placement can be coordinated, he may require SWB1 while awaiting disposition.
[2020-12-25] MEDS: Docusate Sodium 100 MG CAP PO (09:26)
[2020-12-25] MEDS: Cyanocobalamin 500 MCG TAB 1000 MCG PO (09:27)
[2020-12-25] MEDS: Senna TAB 1 TAB PO (09:27)
[2020-12-25] MEDS: Sertraline 50 MG TAB PO (09:27)
[2020-12-25] MEDS: Sertraline 25 MG TAB PO (09:27)
[2020-12-25] MEDS: Omega-3 Fatty Acids 1000 MG CAP PO (09:29)
[2020-12-25] MEDS: Folic Acid 1 MG TAB PO (09:30)
[2020-12-25] MEDS: Zinc Sulfate 220 MG TAB PO (09:35)
[2020-12-25 10:09] VITALS: BP 130/68; PULSE 70; RESP 19; TEMP 36.6; O2SAT 96
[2020-12-25] MEDS: Acetaminophen 325 MG TAB 650 MG PO (12:10)
[2020-12-25] MEDS: traMADol 50 MG TAB PO ×3 (13:46→22:01)
[2020-12-25 15:47] VITALS: BP 208/101
--- NOTE | 2020-12-25 16:41 | W.PM.PROGNOT ---
Date of Service Date of service: 12/25/20 Time of Service: 16:41 Assessment and Plan Assessment and plan (1) Closed head injury: Status: Acute Assessment and plan: keep in rigid cervical collar until cleared by negative CT scan of neck; also needs CT head and orbits to rule out orbital fracture Qualifiers: Encounter type: initial encounter Qualified Code(s): S09.90XA - Unspecified injury of head, initial encounter (2) Facial laceration: Status: Acute Assessment and plan: I have asked Dr. Hinton to see him tonight to perform closure of his wound. His tetanus should be updated in not current. He is currently getting multiple images of his head and neck as well as pelvis and hips and right wrist Qualifiers: Encounter type: initial encounter Qualified Code(s): S01.81XA - Laceration without foreign body of other part of head, initial encounter (3) Parkinsonism: Status: Acute Assessment and plan: continue current Sinemet dosing as prescribed by neurology Qualifiers: Parkinsonism type: Parkinson's disease Qualified Code(s): G20 - Parkinson's disease (4) Rheumatoid arthritis: Status: Acute Qualifiers: Rheumatoid factor presence: unspecified presence Laterality: unspecified laterality Subjective Subjective Interval history since last seen: Called to see patient urgently d/t patient fell off his chair. Chair alarm was in place but apparently patient face planted off the chair. He was found face down in a pool of blood. He was alert and responsive. He is complaining of bilateral knee pain and right wrist pain as well Exam Narrative Exam Narrative: patient found face down in his room, awake, alert, lying in pool of blood under his face c-spine nontender right wrist arthritic but not swollen hips nontender thoracic spine and lumbar spine nontender to palpation Patient was kept immobile until we got a rigid [place] collar around his c-spine and he was log rolled onto a rigid backboard brought up from the ER. Face was then examined and he has swollen left eye (eyelid is ecchymotic and swollen shut), large laceration (approximately 5 cm in length) w/ clotting blood over this Patient sent to xray for C-spine and head CT and orbits as well as xrays of hips, pelvis, both knees and right wrist Objective Last Vital Signs Temp 36.6 C 12/25/20 10:09 Pulse 70 09/08/21 10:09 Resp 19 12/25/20 10:09 BP 130/68 12/25/20 10:09 Pulse Ox 96 12/25/20 10:09
--- NOTE | 2020-12-25 17:08 | CHAPLAIN ---
Wade was sitting in his chair with his phone on his lap with various dog emojis on the screen. He he was struggling to get beyond that screen and said he was looking for Robina's (his daugher) phone number. He accepted help when I offered it. After the dog emojis, the next screen was contact information for Dr. Casas, and he recognized her name and told me she is a physician of his. We found Robina's number, although then he didn't want to call her. He asked me to shut the phone down. When I got to his screen saver, of mountains and the milky way he asked what photo that was. Wade spoke about going some where and was surprised that he couldn't go to some places. (Care Management is working with Robina, who is Wade's guardian, to find a placement for Wade.) I couldn't understand all that he said as he speaks soft and low a times. I will continue to visit.
[2020-12-25 17:15] VITALS: BP 97/58; PULSE 59; RESP 17; TEMP 36.4; O2SAT 99
--- NOTE | 2020-12-25 17:16 | DI.VRAD_ITS ---
PROCEDURE INFORMATION: Exam: CT Orbits Without Contrast Exam date and time: 12/25/2020 4:27 PM Age: 80 years old Clinical indication: Other: Trauma, fall TECHNIQUE: Imaging protocol: Computed tomography images of the orbits without contrast. COMPARISON: CT HEAD CERVICAL SPINE WO 12/25/2020 4:39 PM FINDINGS: Orbital cavity: Scleral banding procedure on the left. Paranasal sinuses: Normal. No air-fluid levels. Bones/joints: Acute fracture of the roof of bilateral orbits. Soft tissues: Periorbital bilateral edema. Laceration in the left frontal scalp. IMPRESSION: Acute fractures of the roof of bilateral orbits. Dictated and Authenticated by: Mynor Camargo MD. [facility]ing[facility] Bria Marroquin MD
--- NOTE | 2020-12-25 17:24 | DI.VRAD_ITS ---
Addendum created by Mynor Camargo DO on 12/25/2020 5:36:09 PM EDT: THIS REPORT CONTAINS FINDINGS THAT MAY BE CRITICAL TO PATIENT CARE. The findings were verbally communicated via telephone conference with Lopez Fraser at 5:35 PM EDT on 12/25/2020. The findings were acknowledged and understood. Initial report created on 12/25/2020 5:23:56 PM EDT: PROCEDURE INFORMATION: Exam: CT Head Without Contrast Exam date and time: 12/25/2020 4:30 PM Age: 80 years old Clinical indication: Other: Trauma TECHNIQUE: Imaging protocol: Computed tomography of the head without contrast. Radiation optimization: All CT scans at this facility use at least one of these dose optimization techniques: automated exposure control; mA and/or kV adjustment per patient size (includes targeted exams where dose is matched to clinical indication); or iterative reconstruction. COMPARISON: MR BRAIN WO 12/16/2020 10:32 AM FINDINGS: Brain: There are moderate periventricular and subcortical lucencies consistent with chronic microvascular ischemic changes. The issa-white differentiation is maintained. No hemorrhage. No edema. Cerebral ventricles: No ventriculomegaly. Paranasal sinuses: Visualized sinuses are unremarkable. No fluid levels. Mastoid air cells: Visualized mastoid air cells are well aerated. Bones/joints: Acute fractures of the roof of bilateral orbits. Please refer to CT orbits of the same date for details. Soft tissues: Laceration in the left frontal scalp. IMPRESSION: Acute fractures of bilateral orbits. Please refer to CT orbits of the same date for details. No acute intracranial abnormality. PROCEDURE INFORMATION: Exam: CT Cervical Spine Without Contrast Exam date and time: 12/25/2020 4:30 PM Age: 80 years old Clinical indication: Other: Trauma TECHNIQUE: Imaging protocol: Computed tomography images of the cervical spine without contrast. Radiation optimization: All CT scans at this facility use at least one of these dose optimization techniques: automated exposure control; mA and/or kV adjustment per patient size (includes targeted exams where dose is matched to clinical indication); or iterative reconstruction. COMPARISON: MR BRAIN WO 12/16/2020 10:32 AM FINDINGS: Bones/joints: Grade 1 anterolisthesis of C3 over C4. No acute fracture. Discs/Spinal canal/Neural foramina: Multilevel degenerative disc disease. There is multilevel uncovertebral and facet hypertrophy with neural foramina narrowing. Lungs: Lung apices are normal. Soft tissues: Unremarkable. IMPRESSION: No acute intracranial abnormality. Dictated and Authenticated by: Mynor Camargo MD. Ordering:[facility] Bria Marroquin MD
--- NOTE | 2020-12-25 17:37 | DI.VRAD_ITS ---
PROCEDURE INFORMATION: Exam: XR Left Knee Exam date and time: 12/25/2020 4:33 PM Age: 80 years old Clinical indication: Injury or trauma; Fall; Blunt trauma; Knee; Bilateral; Injury date: 12/25/20; Prior surgery TECHNIQUE: Imaging protocol: XR Left knee. Views: 3 views. COMPARISON: CR LEFT KNEE 3 VIEW COMPLETE 08/26/2017 1:53 PM FINDINGS: Bones/joints: Status post total knee arthroplasty. No acute fracture. No hardware loosening. Soft tissues: Normal. Vasculature: Vascular calcifications. IMPRESSION: No acute abnormality. Dictated and Authenticated by: Mynor Camargo MD. Ordering:[facility] Bria Marroquin MD
--- NOTE | 2020-12-25 17:39 | DI.VRAD_ITS ---
PROCEDURE INFORMATION: Exam: XR Right Knee Exam date and time: 12/25/2020 4:33 PM Age: 80 years old Clinical indication: Injury or trauma; Fall; Blunt trauma; Knee; Right; Injury date: 12/25/20; Prior surgery TECHNIQUE: Imaging protocol: XR Right knee. Views: 3 views. COMPARISON: NM WHOLE BODY BONE SCAN 03/17/2018 1:55 PM FINDINGS: Bones/joints: Status post total knee arthroplasty. No evidence for hardware loosening or fracture. Soft tissues: Normal. Vasculature: Vascular calcifications. IMPRESSION: No acute abnormality. Dictated and Authenticated by: Mynor Camargo MD. Ordering:[facility] Bria Marroquin MD
--- NOTE | 2020-12-25 17:41 | DI.VRAD_ITS ---
PROCEDURE INFORMATION: Exam: XR Right Wrist Exam date and time: 12/25/2020 4:33 PM Age: 80 years old Clinical indication: Injury or trauma; Fall; Blunt trauma (contusions or hematomas); Wrist; Right; Injury date: 12/25/20 TECHNIQUE: Imaging protocol: XR Right wrist. Views: 3 or more views. COMPARISON: TX WHOLE BODY BONE SCAN 03/17/2018 1:55 PM FINDINGS: Bones/joints: Diffuse demineralization of the bones. Severe degenerative changes of the radiocarpal, intercarpal and carpometacarpal joints. No acute fracture. Soft tissues: Normal. IMPRESSION: Severe degenerative changes of the wrist joint. Dictated and Authenticated by: Mynor Camargo MD. [facility] Bria Marroquin MD
--- NOTE | 2020-12-25 17:44 | DI.VRAD_ITS ---
PROCEDURE INFORMATION: Exam: XR Right Hip Exam date and time: 12/25/2020 4:26 PM Age: 80 years old Clinical indication: Injury or trauma; Fall; Blunt trauma (contusions or hematomas); Bilateral; Hip; Injury date: 12/25/20; Prior surgery TECHNIQUE: Imaging protocol: XR Right hip. Views: 2 or 3 views hip with pelvis when performed. COMPARISON: CR XR HIP PELVIS ADULT BL 12/21/2020 5:55 PM FINDINGS: Bones/joints: Total right hip arthroplasty. Diffuse demineralization of the bones. Severe degenerative changes of the left hip joint. No acute fracture. New lie no dislocation. Soft tissues: Unremarkable. IMPRESSION: No acute abnormality. Dictated and Authenticated by: Mynor Camargo MD. [facility] Bria Marroquin MD
--- NOTE | 2020-12-25 18:35 | SCONE_ITS ---
Assessment and Plan Assessment and plan (1) Facial laceration: Status: Acute Assessment and plan: laceration closed in a single layer at the bedside Qualifiers: Encounter type: initial encounter Qualified Code(s): S01.81XA - Lac eration without foreign body of other part of head, initial encounter History of Present Illness Narrative: Mr. Lau is a 80 year old male with Parkinsons who was admitted for failure to thrive. He attempted to get up out of the chair, tripped and fell hitting his head. His CT scan showed periorbital fractures. He also has a 4 cm laceration over his left eyebrow. I was asked to see the patient to close his laceration. Consent was obtained from his daughter Robina. Pre-op Dx: laceration over the left eyebrow Post-op Dx: same Surgeon: Cristiano Hinton MD Anesthesia: 10 cc of 1% Lidocaine with epi Blood loss: 10 cc Specimen: none Complications: no immediate complications Procedure: After informed consent was obtained the patient was placed in a supine position. The skin was cleaned with betadine and infiltrated with the above local anesthetic. The skin was then prepped and draped in a sterile surgical fashion. The skin edges were approximated with 6-0 proline single interrupted sutures. Skin was cleaned and dried . The patient tolerated the procedure well and there were no immediate complications. Needle counts were correct at the end of the case. 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 Goals of care, counseling/discussion Health care proxy on file daughter Robina Lau Hearing abnormally acute NO HEARING LOSS Hyperlipidemia Hypertension Hypophonia Insomnia Ocular hemorrhage Osteoarthritis of knee (10/01/14) Overactive bladder Palliative care patient Parkinson disease advanced Parkinsonism 10/29/14; [facility] (SEE SCANNED) POLST (Physician Orders for Life-Sustaining Treatment) Prostate cancer RA (rheumatoid arthritis) Retinal detachment multiple, bilateral Sialorrhea 10/29/14; [facility]; (SEE SCANNED) Spinal stenosis lumbar with h/o radiculopathy Surgical History History of cataract removal with insertion of prosthetic lens LEFT REMOVAL; LEFT RETINAL BUCKLE W/VITRIECTOMY; RIGHT RETINAL DETACHMENT W/VITRIECTOMY; YAG LASER TX CLOUDED LENS History of spinal surgery Lumbar 2013 Status post carpal tunnel release LEFT Status post foot surgery Status post hip replacement RIGHT Status post prostatectomy Status post total knee replacement Bilateral Status post transurethral resection of prostate Family History (Updated 12/17/20 @ 16:53 by Lilia Dukes MD) Mother , age 80 from PD Essential hypertension Parkinson disease Father , age 90 from PD and pancreatic ca Heart disease CAD Parkinson disease Pancreatic cancer Grandfather Personal history of malignant neoplasm LEUKEMIA Grandmother Parkinson disease Grandmother Essential hypertension Stroke Daughter No problems noted. Granddaughter No problems noted. Grandson No problems noted. 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 Current gender identity: male What is your relationship status?: How often do you talk on the phone with friends or family?: three or more times per week How often do you get together with friends or relatives?: three or more times per week Panel score (0-1 are the most socially isolated patients): 1 What type of physical activity do you participate in: assisted ambulation Duration: < 15 minutes/day Frequency: daily Special shauna needs: No Seatbelt use: always Do you feel safe at home: Yes Do you feel safe in your relationship?: Yes Additional Social history: Was at home with overnight caregivers until this admission. No longer safe at home. Cannot remember how to use his cell phone. Fell and could not get up. Not taking midday medications or meals. Beginning to lean toward understanding his need to go to acute rehab; he still would like to go home after rehab stay. Not sure at this time if that would be safe. He gets mad at Robina for trying to put him in a home. She is just trying to make sure he is safe. Results Last Vital Signs Temp 97.5 F L 12/25/20 17:15 Pulse 59 L 12/25/20 17:15 Resp 17 12/25/20 17:15 BP 97/58 L 12/25/20 17:15 Pulse Ox 99 12/25/20 17:15 Labs Result diagrams: 12/17/20 06:49 12/17/20 06:49 Procedures Laceration Laceration 1: Site: scalp Side (if applicable): left Size (cm): 4 Description: irregular Depth: simple, single layer Anesthetic used: with epi Anesthesia technique: local infiltration Amount (ml): 10 Pre-repair: irrigated extensively Skin layer closed with: other (proline) Size (cm): 6-0 Number of sutures: 10 Technique: simple, interrupted
--- NOTE | 2020-12-25 18:52 | NUR.NOTE ---
Nursing Note:patient came back from xray at 1746 patient still has neck brace on and still on the hard board. Patient is alert to name and talking to family friend in the room Patient vitals will be taken per protocol 4x4 over Laceration above left eyebrow with no active bleeding and surgeon has been called for suturing
[2020-12-25 19:01] VITALS: BP 183/86; PULSE 73; RESP 17; TEMP 36.9; O2SAT 100
[2020-12-25] MEDS: QUEtiapine 25 MG TAB 37.5 MG PO (19:03)
--- NOTE | 2020-12-25 19:26 | NUR.NOTE ---
Nursing Note: patient left above the eyebrow laceration was sutured by MD Patient tolerated procedure well patient is resting in bed and family just left Sutures are intact and laceration is well approximated and there is no active bleeding
[2020-12-25] MEDS: Melatonin 3 MG TAB PO (22:02)
[2020-12-25] MEDS: Ibuprofen 200 MG TAB PO (22:02)
[2020-12-26] MEDS: fentaNYL 12 MCG PATCH TD (01:42)
[2020-12-26] MEDS: traMADol 50 MG TAB PO ×5 (06:27→20:51)
[2020-12-26] MEDS: Acetaminophen 500 MG TAB 1000 MG PO ×3 (09:56→18:33)
[2020-12-26] MEDS: Sertraline 50 MG TAB PO (09:57)
[2020-12-26] MEDS: Omega-3 Fatty Acids 1000 MG CAP PO (09:57)
[2020-12-26] MEDS: Docusate Sodium 100 MG CAP PO ×2 (09:57→20:52)
[2020-12-26] MEDS: Sertraline 25 MG TAB PO (09:57)
[2020-12-26] MEDS: Folic Acid 1 MG TAB PO (09:58)
[2020-12-26] MEDS: Cyanocobalamin 500 MCG TAB 1000 MCG PO (09:58)
[2020-12-26] MEDS: Senna TAB 1 TAB PO ×2 (09:58→20:52)
--- NOTE | 2020-12-26 12:22 | CMPROGNOTE_ITS ---
Care Management Progress Note S/O: Wade had a fall yesterday, resulting in a head injury. His daughter and guardian, Robina met with Palliative Care and made the decision to transition Wade's care to comfort measures. Robina met with Dr. Dukes today, and advocated for Wade to go to [facility] hosp[facility] care upon discharge. CM to support coordination when Bill returns from vacation. CM continues to follow. A: 80 year old male admitted to [facility] 12/13/20 for frequent falls, Parkinsons P: Anticipate Wade will remain at [facility] until he is able to discharge to [facility], he may need to enter [facility] prior to discharge as Bill is on vacation this week. Anticipate he will transport via EMS. CM continues to follow.
--- NOTE | 2020-12-26 12:22 | PDOC.CMPRO ---
Care Management Progress Note S/O: Wade had a fall yesterday, resulting in a head injury. His daughter and guardian, Robina met with Palliative Care and made the decision to transition Wade's care to comfort measures. Robina met with Dr. Dukes today, and advocated for Wade to go to [facility] private hosp[facility] care upon discharge. CM to support coordination when Bill returns from vacation. CM continues to follow. A: 80 year old male admitted to [facility] 12/13/20 for frequent falls, Parkinsons P: Anticipate Wade will remain at [facility] until he is able to discharge to [facility], he may need to enter [facility] prior to discharge as Bill is on vacation this week. Anticipate he will transport via EMS. CM continues to follow.
--- NOTE | 2020-12-26 14:02 | PGE_ITS ---
Date of Service Date of service: 12/26/20 Time of Service: 14:02 Assessment and Plan Assessment and plan (1) Closed head injury: Status: Acute Qualifiers: Encounter type: initial encounter Qualified Code(s): S09.90XA - Unspecified injury of head, initial encounter (2) Facial laceration: Status: Acute Assessment and plan: will re-eval at your request Qualifiers: Encounter type: initial encounter Qualified Code(s): S01.81XA - Laceration without foreign body of other part of head, initial encounter (3) Dysphagia: Status: Chronic Qualifiers: Dysphagia type: unspecified Qualified Code(s): R13.10 - Dysphagia, unspecified (4) Parkinson disease: Status: Chronic (5) Palliative care patient: Status: Acute (6) Memory loss: Status: Chronic (7) Frequent falls: Status: Chronic Subjective Subjective Interval history since last seen: pt is not a reliable historian cannot lift his right leg off the bed. able to move feet/wiggle toes b/l. ate soft diet states he can see out of left eye incision c/d/i. pt has been made comfort care only and will be transferring to care center in [place]. will forego xrays care per hosp service Objective Last Vital Signs Temp 36.9 C 12/25/20 19:01 Pulse 73 12/25/20 19:01 Resp 17 12/25/20 19:01 BP 183/86 H 12/25/20 19:01 Pulse Ox 100 12/25/20 19:01
--- NOTE | 2020-12-26 15:01 | W.PM.PROGNOT ---
Date of Service Date of service: 12/26/20 Time of Service: 15:01 Assessment and Plan Assessment and plan (1) Frequent falls: Status: Chronic (2) Memory loss: Status: Chronic (3) Parkinsonism: Status: Acute Assessment and plan: Mr. Lau is a 80 year-old, right-handed man who was admitted with the following: #1. Parkinsons, weakness, and falls complicated by severe OA/RA. Continue Sinemet 25/250 TID + 25/100mg HS. Swallowing/speech seem improved. No drooling today. He is awaiting placement. #2. owning in the setting of moderate-stage dementia. Continue Seroquel 37.5mg HS. Prn lorazepam. Restraints vs sitter??? Bed alarm on, but he is still trying to get up on his own.... Qualifiers: Parkinsonism type: Parkinson's disease Qualified Code(s): G20 - Parkinson's disease Subjective Subjective Interval history since last seen: He had a terrible fall yesterday out of the recliner landing on his face. Suffered a lac and bilateral orbital roof fractures. Seems in good spirits today and less confused per daughter despite all this. Family is moving towards comfort measures. Hoping for placement in home care environment. Exam Narrative Exam Narrative: Physical Exam: Sinemet taken ~2.5hours prior Constitutional: Patient of apparent stated age, no acute distress, mild hypomima, occasional oral/chewing movements Neuro: MS/Language/Speech: Alert, oriented, clear language (fluency and comprehension), mild dysarthria; moderate hypophonia Motor: No resting tremor today. Coordination: Finger to nose performed with subtle bilateral UE dysmetria Gait: not tested Objective Last Vital Signs Temp 36.9 C 12/25/20 19:01 Pulse 73 12/25/20 19:01 Resp 17 12/25/20 19:01 BP 183/86 H 12/25/20 19:01 Pulse Ox 100 12/25/20 19:01
--- NOTE | 2020-12-26 16:57 | W.PALPGNOTE ---
Date of service: 12/26/20 Time of Service: 11:30 Assessment and Plan Assessment and plan (1) Closed head injury: Status: Acute Assessment and plan: Fell on face. Suffered lac, repaired by Dr Hinton. + orbital fractures. Family and Wade opted against prophylactic antibiotics. Day prior to this fall, Wade and Robina agreed he would get abx for comfort, but not for prophylaxis. Qualifiers: Encounter type: initial encounter Qualified Code(s): S09.90XA - Unspecified injury of head, initial encounter (2) Facial laceration: Status: Acute Assessment and plan: Repaired by Dr Hinton, surgeon. Will need sutures out prior to discharge to [facility] planned for next week if all goes well. Qualifiers: Encounter type: initial encounter Qualified Code(s): S01.81XA - Laceration without foreign body of other part of head, initial encounter (3) Dysphagia: Status: Chronic Assessment and plan: Chronic. Coughs with every sip. Qualifiers: Dysphagia type: unspecified Qualified Code(s): R13.10 - Dysphagia, unspecified (4) Hypophonia: Status: Acute Assessment and plan: Due to his Parkinson's disease. Hard to communicate with him due to this. (5) Parkinson disease: Status: Chronic Assessment and plan: End-stage. High risk of further falls. Very weak. Impulsivity of Lewy Body dementia (associated with PD) makes it hard to prevent. Family understands. (6) POLST (Physician Orders for Life-Sustaining Treatment): Status: Acute Assessment and plan: Very clear that he does not want any interventions to prolong his life, unless they make him comfortable. (7) Encounter for hospice care discussion: Status: Acute Assessment and plan: Shanice agree that going to [facility] after this admission would fit his goals of care most closely; he does NOT want to go to a SNF and he would not be able to be Rehabbed so his stay would be out of pocket and expensive. (8) Frequent falls: Status: Chronic Assessment and plan: Cannot use a walker or cane. Should be bedbound. (9) Hallucination, visual: Status: Acute Assessment and plan: Part of his PD. NOt actively hallucinating on day of my visit. (10) Lewy body dementia with behavioral disturbance: Status: Acute Assessment and plan: Advancing. Will need to receive care at discharge; not safe at home alone any more. Subjective Subjective Patient reports: still having pain and pain is less; denies feels better, tolerating liquids well and tolerating a regular diet Interval history since last seen: Wade fell and fractured both orbits by landing on his face. He gets agitated in the evenings; he has end-stage PD and is very unsteady. He has PD-associated dementia, too, making his judgment very poor and his behavior impulsive. His left eye and orbit is more black-and blue and swollen than his right. He looks pale and very weak. His wihqyb-ne-ckd Yessenia and his daughter Robina were sitting with him during my visit. He has severe hypophonia, and is very hard to hear. He seems even more quiet than he had been. Exam Narrative Exam Narrative: Wade is sitting in bed with side rails up, trying to sip on water but choking as he does so. He has large ecchymoses over his face and left eye but now at least he can open his eye. laceration is well approximated d/t sutures placed by Dr. Hinton Lungs clear Heart RRR Abdomen: soft and nontender Ext: with extensive joint enlargement and deformity due to his RA. Muscular atrophy. Psych: appears tired, less agitated. Nursing staff reports that he still gets agitated in the evening. Some of it due to pain and some due to his PD-dementia. Family wondering if different medications might help settle him . Skin: echymoses on right arm, left face and elsewhere Neuro: oriented to place and self. Not time. Objective Last Vital Signs Temp 98.4 F 12/25/20 19:01 Pulse 73 12/25/20 19:01 Resp 17 12/25/20 19:01 BP 183/86 H 12/25/20 19:01 Pulse Ox 100 12/25/20 19:01
--- NOTE | 2020-12-26 18:19 | W.PM.PROGNOT ---
Date of Service Date of service: 12/26/20 Time of Service: 16:15 Assessment and Plan Assessment and plan (1) Closed head injury: Status: Acute Assessment and plan: CT scan last night showed no cervical fracture but orbital views demonstrated retroorbital fracture bilaterally. family chose not to pursue treatment. Patient now on comfort measures status. Dr. Dukes met w/ Wade today and is ordering his pain medications and antianxiety meds. Qualifiers: Encounter type: initial encounter Qualified Code(s): S09.90XA - Unspecified injury of head, initial encounter (2) Facial laceration: Status: Acute Assessment and plan: s/p primary closure by surgical suturing. wound looks closed and clean Qualifiers: Encounter type: initial encounter Qualified Code(s): S01.81XA - Laceration without foreign body of other part of head, initial encounter (3) Parkinsonism: Status: Acute Assessment and plan: patient is still receiving his Parkinsonian meds and his seroquel. 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 He offers no complaints. Exam Narrative Exam Narrative: Wade has large ecchymoses over his face and left eye but now at least he can open his eye. laceration is well approximated d/t sutures placed by Dr. Hinton Lungs clear Heart RRR Abdomen: soft and nontender Objective Last Vital Signs Temp 36.9 C 12/25/20 19:01 Pulse 73 12/25/20 19:01 Resp 17 12/25/20 19:01 BP 183/86 H 12/25/20 19:01 Pulse Ox 100 12/25/20 19:01
[2020-12-26] MEDS: QUEtiapine 25 MG TAB 37.5 MG PO (18:32)
[2020-12-26] MEDS: Ibuprofen 200 MG TAB PO (20:51)
[2020-12-26] MEDS: Carbidopa 25/Levodopa 100 TAB PO (20:52)
[2020-12-26] MEDS: Melatonin 3 MG TAB PO (20:52)
[2020-12-26] MEDS: Simvastatin 10 MG TAB PO (20:52)
[2020-12-26] MEDS: LORazepam 1 MG TAB PO (23:59)
--- NOTE | 2020-12-27 14:38 | PGE_ITS ---
Date of Service Date of service: 12/27/20 Time of Service: 08:30 Assessment and Plan Assessment and plan (1) Comfort measures only status: Start date: 12/27/20 Start time: 11:00 Status: Acute Assessment and plan: Patient comfortable, arouses easily. Non labored breathing. dcd any noncomfort medications. Periorbital fx that led family to decide on CM being followed by Dr. Dukes. On long acting morphine with break through morphine liquid for pain (2) Facial laceration: Start date: 12/27/20 Start time: 11:00 Status: Acute Assessment and plan: Repaired by Dr Hinton, surgeon. Will need sutures out prior to discharge to [facility]'s, planned for next week if all goes well. Qualifiers: Encounter type: initial encounter Qualified Code(s): S01.81XA - Laceration without foreign body of other part of head, initial encounter (3) Lewy body dementia with behavioral disturbance: Start date: 12/27/20 Start time: 11:00 Status: Acute Assessment and plan: No on comfort measures. discussed with Dr. Fraser Subjective Subjective Patient reports: other Interval history since last seen: Patient sleeping, wakes easily. On DIRECTOR OF VALUATION. All meds not for comfort discontinued. He had a fall that led to preorbital fracture, family decided to pursue DIRECTOR OF VALUATION. He was placed on comfort measures. Exam Narrative Exam Narrative: Sleepy elderly male that wakes easily. Appears comfortable. sutures intact. breathing nonlabored. RRR. Continue to monitor. Objective Last Vital Signs Temp 36.9 C 12/25/20 19:01 Pulse 73 12/25/20 19:01 Resp 17 12/25/20 19:01 BP 183/86 H 12/25/20 19:01 Pulse Ox 100 12/25/20 19:01
--- NOTE | 2020-12-27 17:30 | INDS_ITS ---
Date of service: 12/27/20 PT Notes Visit Reasons: Frequent Falls, Parkinsons Physical Therapy Inpatient Discharge summary Date: 12/27/2020 Dates of Service: 12/14/2020 through 12/23/2020 This is a clinical summary of care provided for the duration of dates listed above. No charge was made in the completion of this documentation. Referring Doctor: Lauryn Sutton PT Orders: PT CONSULT: Frequent falls, fall safety assessment Precautions: Fall risk, standard Patient Profile/Admitting Diagnosis: 80-year-old male with multiple comorbidities of PD, RA, and OA presenting to ER with his daughter on December 13, 2020 to the recommendation of his PCP due to increased falling and lower extremity weakness and immobility, for medical work-up. Differential diagnosis at this point suggesting UTI, patient currently undergoing work-up. 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 Hyperlipidemia Hypertension Insomnia Ocular hemorrhage Osteoarthritis of knee (10/01/14) Overactive bladder Parkinsonism 10/29/14; [facility] (SEE SCANNED) Prostate cancer RA (rheumatoid arthritis) Retinal detachment multiple, bilateral Sialorrhea 10/29/14; [facility]; (SEE SCANNED) Spinal stenosis lumbar with h/o radiculopathy with syndrome Surgical History sugar intake this morning to below theHistory of cataract removal with insertion of prosthetic lens LEFT REMOVAL; LEFT RETINAL BUCKLE W/VITRIECTOMY; RIGHT RETINAL DETACHMENT W/VITRIECTOMY; YAG LASER TX CLOUDED LENS History of spinal surgery Lumbar 2012 Status post carpal tunnel release LEFT Status post foot surgery Status post hip replacement RIGHT Status post prostatectomy Status post total knee replacement Bilateral Status post transurethral resection of prostate Social History/Home Situation: Patient reports to me that he lives alone in an apartment or mobile home, is unclear on which one. He states that he has caregivers that come in daily to provide food, clean, and visit with him. He is alone from 10 AM to 7 PM. He generally ambulates around his home with his walker, and states that he can get in and out of his home with a ramp or 2 small steps with his walker. This is per his subjective report, not sure how accurate this is. Current Functional Limitations: Patient is currently requiring assistance with sit to stand and stand to sit transfers, all ambulation activities with use of walker, and needed assistance with toileting today Equipment Owned/DME: Walker, WC Subjective: NT. See most recent SAPPHIRE STYLUS GRINDER notes. I went over my Objective: General Observation: NT. See most recent SAPPHIRE STYLUS GRINDER notes. Mental Status: NT. See most recent SAPPHIRE STYLUS GRINDER notes. Pain: NT. See most recent SAPPHIRE STYLUS GRINDER notes. Vital Signs: Still ROM: Right Upper Extremity: Active shoulder flexion 80, scapular plane 70, passive shoulder flexion 145, passive shoulder abduction 90, elbow WNL, wrist limited 20 degrees flexion extension due to arthritis Left Upper Extremity: Active shoulder flexion 90, scapular plane 60, passive shoulder flexion 120, passive shoulder abduction 90, elbow WNL, wrist limited 20 degrees flexion and extension due to arthritis Right Lower Extremity: Right hip limited 90 degrees flexion in the seated position, 5 to 100 degrees knee mobility, assessed in sitting. Ankle within functional limits Left Lower Extremity: Right hip limited to 120 degrees flexion in the seated position, 5 to 100 degrees knee mobility assessed in sitting. Ankle within functional limits Strength: Right Upper Extremity: Grossly 3+/5 all planes of right shoulder, elbow 4+/5, wrist 3/5 Left Upper Extremity: Grossly 4/5 all planes left shoulder with crepitus, elbow 4+/5, wrist 3/5 Right Lower Extremity: Hip flexion 3/5, knee extension 4/5, knee flexion 5/5, ankle dorsiflexion 4/5, plantarflexion 4/5 Left Lower Extremity: Hip flexion 4 -/5, knee extension 4/5, knee flexion 5/5, ankle dorsiflexion plantarflexion 4/5 Sensation: Intact Bed Mobility/Transfers: Requires verbal cues throughout for proper hand placement for safety Sit to stand, max assist x1 at RW Stand to sit, max assist x1 to slow descent of RW Pivot transfer, mod assist x1 to limit falls, and assist with movement of RW Bed mobility not assessed today, can completely visits. Chair mobility requires min assist to transfer to the edge of the seat. Standing at RW, requires min assist x1 to maintain balance while utilizing urinal Gait: CG x1, min assist x1 for mobilization of RW, verbal cues for encouragement of advancement of lower extremities. Tolerates only 4-5 steps, shuffling pattern, bradykinesia observed. Requires verbal cues throughout for proper hand placement on walker Balance: Static Sitting: Fair Dynamic Sitting: Poor Static Standing: Poor Assessment: Patient is a 80 year old male referred to physical therapy services with the diagnosis of increased falls and lower extremity weakness, in the setting of PD, RA, and OA. Patient is now at highest functional level requiring assist of 2 for all transfers and in-room ambulation. He really 0 is no longer appropriate for skilled PT services to home. Goals: Goals X1 week 1. Supine-Sit independent NOT MET 2. Sit-Supine independent NOT MET 3. Sit-Stand CG x1 NOT MET 4. Stand-Sit CG x1 NOT MET 5. Bed-Chair CG x1 NOT MET Feet. Chair-Bed CG x1 NOT MET 7. Gait 20 feet with RW, CG x1 NOT MET 8. Stairs 2, with rail, min assist x1 NOT MET 9. Independent with home exercise program NOT MET 10. Balance fair with contact-guard with ambulation activities and dynamic transfers NOT MET DISCHARGE RECOMMENDATIONS: Swing bed or SNF TREATMENT CODE/TIME: UT Thank you for the opportunity to participate in the care of this patient. Ryanne Camejo PT, DPT, CLT [facility] [place], [place]
--- NOTE | 2020-12-27 18:51 | NUR.NOTE ---
Nursing Note: This afternoon patients daughter was in to visit (Audrey) and she voiced concerns about her father being over sedated and this was brought to charge nurse James. Audrey was verbalizing that she wanted to make sure her dad was comfortable but wanted a happy medium where he would not be so sedated. I explained that the medications that he would be given would cause sedation. Audrey called nurse stating that her father was waking up and she thought he was in pain and wanted us to give him something. When I came in patient was sleeping and no none verbal signs of distress noted. I explained to Audrey that he appeared to be comfortable and if I was to give him the morphine that it would sedate him even more and that it would be better to wait until he wakes up and is alert enough to swallow medication. Audrey still having concerns the MD went into talk to here and medications where adjusted.
--- NOTE | 2020-12-27 19:42 | CMPROGNOTE_ITS ---
- If Service Date Differs Date of service: 12/27/20 Time of Service: 19:42 Care Management Progress Note S/O: Wade was resting in bed when CM met with him. His daughter, Robina was by his side. Robina expressed concern regarding her father's reaction to medication that was administered last night due to agitation. CM informed the provider of her concern, who met with Robina and Dr. Dukes (phone) to discuss medication management. Wade has been accepted at [facility] home, [facility], but cannot be admitted until 01/01/21. Wade will remain at [facility] until this transfer. CM will continue to follow. A: Wade is a 80 year old male admitted to [facility] 12/13/20 for frequent falls, Parkinsons P: Anticipate Wade will remain at [facility] until he is able to discharge to [facility], he may need to enter [facility] prior to discharge as [facility] is on vacation this week. Anticipate he will transport via EMS. CM continues to follow.
--- NOTE | 2020-12-27 19:42 | PDOC.CMPRO ---
- If Service Date Differs Date of service: 12/27/20 Time of Service: 19:42 Care Management Progress Note S/O: Wade was resting in bed when CM met with him. His daughter, Robina was by his side. Robina expressed concern regarding her father's reaction to medication that was administered last night due to agitation. CM informed the provider of her concern, who met with Robina and Dr. Dukes (phone) to discuss medication management. Wade has been accepted at [facility] home, [facility], but cannot be admitted until 01/01/21. Wade will remain at [facility] until this transfer. CM will continue to follow. A: Wade is a 80 year old male admitted to [facility] 12/13/20 for frequent falls, Parkinsons P: Anticipate Wade will remain at [facility] until he is able to discharge to [facility], he may need to enter [facility] prior to discharge as [facility] is on vacation this week. Anticipate he will transport via EMS. CM continues to follow.
[2020-12-27] MEDS: Acetaminophen 500 MG TAB 1000 MG PO (20:04)
[2020-12-27] MEDS: Senna TAB 1 TAB PO (20:05)
[2020-12-27] MEDS: Docusate Sodium 100 MG CAP PO (20:05)
[2020-12-27] MEDS: risperiDONE 0.5 MG TAB PO (20:05)
--- NOTE | 2020-12-27 20:53 | NUR.NOTE ---
Nursing Note: Wade is alert and conversing with family at bedside. Wade did report pain at a 7 with HS medication pass. Wade was able to tolerate medications in applesauce. Wade is verbal at this time and his speech is clear. The content of his speech is confused Wade is unable to tell me his location or that he is aware of date and time.
[2020-12-27] MEDS: Melatonin 3 MG TAB PO (21:10)
[2020-12-27] MEDS: Ibuprofen 200 MG TAB PO (21:10)
[2020-12-28] MEDS: Docusate Sodium 100 MG CAP PO ×2 (09:01→21:12)
[2020-12-28] MEDS: risperiDONE 0.5 MG TAB PO ×2 (09:02→21:13)
[2020-12-28] MEDS: Folic Acid 1 MG TAB PO (09:02)
[2020-12-28] MEDS: Acetaminophen 500 MG TAB 1000 MG PO ×3 (09:02→21:11)
[2020-12-28] MEDS: Senna TAB 1 TAB PO ×2 (09:03→21:13)
--- NOTE | 2020-12-28 10:25 | W.PM.PROGNOT ---
Date of Service Date of service: 12/28/20 Time of Service: 10:25 Assessment and Plan Assessment and plan (1) Comfort measures only status: Status: Acute Assessment and plan: Patient awakes and alert, confused, appears comfortable. Risperadol BID for behavior No behavioral issues overnight Did not require ativan, he denies pain when asked. Continue current regimen of long acting morphine with short acting PRN Plan for placement possibly wed. (2) Facial laceration: Start date: 12/28/20 Start time: 10:31 Status: Acute Assessment and plan: Sutures Intact. will need to be removed prior to discharge Qualifiers: Encounter type: initial encounter Qualified Code(s): S01.81XA - Laceration without foreign body of other part of head, initial encounter (3) Lewy body dementia with behavioral disturbance: Status: Acute Assessment and plan: Now on comfort measures. discussed with Dr. Wells Subjective Subjective Patient reports: no new complaints Interval history since last seen: Alert, appears comfortable, alert, no behavioral issues overnight. Continue regimen. Plan for placement on Wednesday Exam Narrative Exam Narrative: Alert elderly male with bruising to his forehead and perioribtal areas. Appears comfortable. sutures intact. breathing nonlabored. RRR. Continue to monitor. Objective Last Vital Signs Temp 36.9 C 12/25/20 19:01 Pulse 73 12/25/20 19:01 Resp 17 12/25/20 19:01 BP 183/86 H 12/25/20 19:01 Pulse Ox 100 12/25/20 19:01
[2020-12-28] MEDS: Melatonin 3 MG TAB PO (21:11)
[2020-12-28] MEDS: Ibuprofen 200 MG TAB PO (21:12)
[2020-12-28] MEDS: LORazepam 1 MG TAB 0.5 MG PO (23:06)
[2020-12-29] MEDS: Docusate Sodium 100 MG CAP PO (08:28)
[2020-12-29] MEDS: Acetaminophen 500 MG TAB 1000 MG PO ×2 (08:28→13:11)
[2020-12-29] MEDS: Folic Acid 1 MG TAB PO (08:28)
[2020-12-29] MEDS: Senna TAB 1 TAB PO (08:29)
[2020-12-29] MEDS: risperiDONE 0.5 MG TAB PO (08:29)
--- NOTE | 2020-12-29 09:24 | W.PM.PROGNOT ---
Date of Service Date of service: 12/29/20 Time of Service: 09:24 Assessment and Plan Assessment and plan (1) Comfort measures only status: Status: Acute Assessment and plan: remains on SKEIN WINDING OPERATOR adjust medications as directed (2) Discharge planning issues: Status: Acute Assessment and plan: care management following, possible plan to discharge to a intermediate this week. discussed with DR Wells Subjective Subjective Patient reports: no new complaints Interval history since last seen: resting comfortably. Exam Const General: cooperative, no acute distress and frail appearing Nutritional Appearance: average body habitus Orientation: alert HENMT Head: normocephalic and atraumatic Neck Neck: full ROM Resp Effort & Inspection: normal respiratory effort Cardio Rate: regular rate Rhythm: regular rhythm GI Palpation: soft Skin General skin exam: no rashes or lesions noted Neuro General: moves all extremities Objective Last Vital Signs Temp 36.9 C 12/25/20 19:01 Pulse 73 12/25/20 19:01 Resp 17 12/25/20 19:01 BP 183/86 H 12/25/20 19:01 Pulse Ox 100 12/25/20 19:01
[2020-12-29] MEDS: Normal Saline Flush 10 ML SYR IVP (23:49)
[2020-12-29] MEDS: MORPHine 4 MG/ML SYR IVP (23:49)
[2020-12-29] MEDS: Scopolamine 1 MG/3 DAYS PATCH TD (23:49)
[2020-12-30] MEDS: Normal Saline Flush 10 ML SYR IVP ×3 (05:40→16:59)
[2020-12-30] MEDS: MORPHine 4 MG/ML SYR IVP ×4 (05:40→17:00)
--- NOTE | 2020-12-30 09:05 | PGE_ITS ---
Date of Service Date of service: 12/30/20 Time of Service: 09:05 Assessment and Plan Assessment and plan (1) Comfort measures only status: Start date: 12/30/20 Start time: 09:38 Status: Acute Assessment and plan: Patient sleeping appears comfortable. Risperadol BID for behavior No behavioral issues overnight Did not require ativan, Continue current regimen of long acting morphine with short acting PRN Plan for placement possibly wed. (2) Facial laceration: Start date: 12/30/20 Start time: :38 Status: Acute Assessment and plan: Sutures Intact. will need to be removed prior to discharge Qualifiers: Encounter type: initial encounter Qualified Code(s): S01.81XA - Laceration without foreign body of other part of head, initial encounter (3) Lewy body dementia with behavioral disturbance: Start date: 12/30/20 Start time: 09:38 Status: Acute Assessment and plan: Now on comfort measures. discussed with Dr. Wells Subjective Subjective Patient reports: no new complaints Interval history since last seen: sleeping, not very wakeful. will let rest, appears comfortable Exam Narrative Exam Narrative: sleeping elderly male with bruising to his forehead and per ioribtal areas. Appears comfortable. sutures intact. breathing nonlabored. RRR. Continue to monitor. Objective Last Vital Signs Temp 36.9 C 12/25/20 19:01 Pulse 73 12/25/20 19:01 Resp 17 12/25/20 19:01 BP 183/86 H 12/25/20 19:01 Pulse Ox 100 12/25/20 19:01
[2020-12-30] MEDS: MORPHine 1,000 MG in CADD PUMP CASSETTE 1 EACH, Normal Saline 80 ML 0.2 MG SC INF (18:08)
--- NOTE | 2020-12-30 18:15 | PCPN_ITS ---
Date of service: 12/30/20 Assessment and Plan Assessment and plan (1) Dying care: Status: Acute Assessment and plan: Wade and his family hope to transfer [facility] to [facility] care so entire family can gather around him. He is on morphine SC pump as of this time. Goal is to keep him comfortable. HIs RA pain and his acute pain from is orbital fractures are keeping him from being at peace, unless medicated. (2) Comfort measures only status: Status: Acute Assessment and plan: All care is focussed on keeping Wade comfortable and with his family. (3) Encounter for hospice care discussion: Status: Acute Assessment and plan: Will be admitted to hospice once he gets to [facility]'s [facility]. He will be transferred there by ambulance tomorrow. (4) Closed head injury: Status: Acute Assessment and plan: Fell at [facility] and fractured both orbits. Has laceration over left eye that will need sutures removed later this week, if he survives. Qualifiers: Encounter type: initial encounter Qualified Code(s): S09.90XA - Unspecified injury of head, initial encounter (5) Facial laceration: Status: Acute Qualifiers: Encounter type: initial encounter Qualified Code(s): S01.81XA - Laceration without foreign body of other part of head, initial encounter (6) Dysphagia: Status: Chronic Assessment and plan: Due to his end-stage Parkinsons Disease. Chokes on all his drinks/foods. Given his terminal status, may have what he wishes. Family accepts risk of aspiration pneumonia. Qualifiers: Dysphagia type: unspecified Qualified Code(s): R13.10 - Dysphagia, unspecified (7) Hypophonia: Status: Acute Assessment and plan: Very hard to hear Wade, especially as he grows weaker. (8) Parkinson disease: Status: Chronic Assessment and plan: End stage. This will be the cause of his , when his time comes. Subjective Subjective Patient reports: still having pain and shortness of breath Interval history since last seen: Wade continues to decline by the day. His daughter Robina and [id number] Yessenia are with him. He is having pain. His morphine was ordered by the hospitalist q 4 hrs, but he is not able to last between doses. I discussed changing him to a pump, with continuous dosing. His IV site was not working well; we changed to SC pump in anticipation of his going to [facility] for End of Life care. Plan is for Wade to be transferred by ambulance to [facility] tomorrow (12/31). Wade's life expectancy is measured in hours to days, no more than a week at this point. He is less and less responsive. His brow is furrowed. He is grimacing through most of my visit. Exam Const General: uncomfortable, frail appearing and ill appearing Nutritional Appearance: thin Orientation: oriented to person [facility] Head: abnormal to inspection, signs of trauma and periorbital ecchymosis Ears: hearing grossly normal bilaterally General nose exam: external nose normal Face and sinus: ecchymosis and dry mucous membranes Eyes Periorbital: periorbital findings abnormal Conjunctivae: conjunctival abnormality bilaterally Neck Neck: no lymphadenopathy Chest Chest: normal inspection of the chest Resp Effort & Inspection: cough, no grunting and not labored Auscultation: diminished lung sounds Cardio Rate: regular rate Rhythm: regular rhythm GI Inspection: scaphoid Palpation: soft Skin General skin exam: ecchymosis and pallor Trauma: laceration (sutures in place in large S-shaped laceration over left eye) Hair: male pattern alopecia Neuro General: not alert, patient awake, not oriented x3 and moves all extremities Cognition: abnormal cognition Speech: abnormal speech Extrem General: no joint enlargement noted and muscle atrophy Psych Appearance: disheveled Speech and Movement: delayed speech and restless Mood: anxious mood Affect: anxious affect Attitude: avoids eye contact Thought Process: impoverished Insight: limited Judgment: limited Other: Wade appears to be transitioning to actively dying. He looked uncomfortable. HOspitalist ordered SC pump at 2 mg/hr with 1 mg bolus q 15 at my request. Objective Last Vital Signs Temp 98.4 F 12/25/20 19:01 Pulse 73 12/25/20 19:01 Resp 17 12/25/20 19:01 BP 183/86 H 12/25/20 19:01 Pulse Ox 100 12/25/20 19:01
--- NOTE | 2020-12-30 19:26 | CMPROGNOTE_ITS ---
- If Service Date Differs Date of service: 12/30/20 Time of Service: 19:26 Care Management Progress Note S/O: Wade was sitting up in bed taking small bites of food, being fed to him by his sister today. She asked MAGGI to make sure his RN knows that he had not had his scheduled medication yet this afternoon. She reported that she is happy with his care at [facility], but she wants to make sure his needs are met in a timely manner. MAGGI relayed this information to the RN coordinator, as his RN was in another pt room at that time. Later, Dr. Dukes visited Wade and together with the family it was decided that he would be started on a morphine pump in order to have continuous medication to keep him comfortable. A conversation was had regarding his discharge plan, specifically that he may return home with hospice support on Wednesday vs [facility] on Wednesday. CM will continue to follow. A: Wade is a 80 year old male admitted to [facility] 12/13/20 for frequent falls, Parkinsons P: Anticipate Wade will remain at [facility] until he is able to discharge to [facility] on Wednesday vs home with hospice support on Wednesday. Anticipate he will transport via EMS. CM continues to follow.
[2020-12-31] MEDS: Normal Saline Flush 10 ML SYR IVP (01:49)
[2020-12-31] MEDS: Glycopyrrolate 0.2 MG/1 ML VIAL 0.1 MG IVP (01:49)
--- NOTE | 2020-12-31 09:10 | PGE_ITS ---
Date of Service Date of service: 12/31/20 Time of Service: 09:10 Assessment and Plan Assessment and plan (1) Comfort measures only status: Status: Acute Assessment and plan: Patient sleeping appears comfortable. not taking po meds Continue current regimen, adjust as needed. Plan for placement possibly wed. (2) Discharge planning issues: Status: Acute Assessment and plan: care management following, possible plan to discharge to a skilled nursing this week. discussed with DR Wells Subjective Subjective Patient reports: no new complaints Interval history since last seen: resting comfortably on morphine drip Exam Const General: cooperative, no acute distress and frail appearing Nutritional Appearance: average body habitus Orientation: alert HENMT Head: normocephalic and atraumatic Neck Neck: full ROM Resp Effort & Inspection: normal respiratory effort Auscultation: clear to auscultation bilaterally Cardio Rate: regular rate Rhythm: regular rhythm Heart Sounds: S1 normal and S2 normal GI Palpation: soft Auscultation: hyperactive bowel sounds Skin General skin exam: no rashes or lesions noted Neuro General: moves all extremities Cranial Nerves: facial strength normal Cognition: normal cognition Motor: tone not normal throughout (Cog-wheel rigidity), tremor (Intentional tremor of hands.) and other (Unable to extend elbows d/t contractures. ) Extrem General: no pedal edema Psych Mood: congruent mood Objective Last Vital Signs Temp 36.9 C 12/25/20 19:01 Pulse 73 12/25/20 19:01 Resp 17 12/25/20 19:01 BP 183/86 H 12/25/20 19:01 Pulse Ox 100 12/25/20 19:01
--- NOTE | 2020-12-31 10:37 | W.PM.DS.N ---
Date of service: 12/31/20 Time of Service: 10:38 DS: Diagnosis Discharge Diagnosis (1) Comfort measures only status: Status: Acute (2) Lewy body dementia with behavioral disturbance: Status: Acute Discharge Plan Disposition Patient Disposition: HOME W/HOME HEALTH SERVICE Condition: Deteriorating Discharge Details Reason For Visit: Frequent Falls, Parkinsons Admit Date/Time: 12/13/20 14:22 Admit Provider: Lalit Wells Attending Provider: Lalit Wells Primary Care Provider: Willie Hodges Hospital Course Hospital Course: This is a 80 yo male with a history of parkinson's, rheumatoid arthritis, hypertension, hyperlipidemia, prostate cancer who presented to the ED accompanied by his daughter who endorsed that he has been noted to be falling more frequently and concerns about his ability to care for himself. Covid in the ED was negative. CT head was questionable a left occipital infarct and an MRI obtained showed no evidence of acute infarct, and chronic microvascular ischemic disease. He was admitted to med/surg unit. hospital course complicated with acute delirium, dysphagia and a family covid exposure. Dr Fisher evaluated and medication adjustments attempted with no improvement in his symptoms. His covid testing remained negative. He underwent a palliative care consult with DR Dukes and eventually transitioned to comfort care. case management following and plan is to discharge to a shelter on hospice. they are available to admit him today and arrangement have been made. he has been comfortable on morphine cadd pump at 8 mg/hr. further medication management per hospice. discharge discussed with DR Wells. Home Meds and New Rx's Prescriptions: New morphine 50 mg/mL solution 8 mg subcut .hourly Qty: 50 RF: 0 No Action cyanocobalamin (vitamin B-12) 1,000 mcg tablet 1,000 mcg PO DAILY RF: 0 omega-3 fatty acids [Fish Oil Concentrate] 1,000 mg capsule 1,000 mg PO DAILY RF: 0 loperamide [Anti-Diarrheal (loperamide)] 2 mg capsule 2 mg PO DAILY PRN RF: 0 amoxicillin 500 mg capsule 2 gm PO ONCE PRN (Reason: TAKE 1 HOUR PRIOR TO DENTAL WORK) RF: 0 folic acid 1 mg tablet 1 mg PO DAILY RF: 0 ascorbic acid (vitamin C) 500 mg tablet 500 mg PO .4 DAYS A WEEK RF: 0 zinc 50 mg tablet 50 mg PO .3 DAYS A WEEK RF: 0 Humira 40 mg/0.8 mL syringe kit See Rx Instructions subcut .COMPLEX RF: 0 psyllium husk [Metamucil] 0.4 gram capsule 0.4 gm PO PRN PRNRF: 0 econazole 1 % cream 1 applic TP BID RF: 0 cetirizine 10 mg tablet 5 mg PO DAILY PRNRF: 0 sertraline 50 mg tablet 50 mg PO DAILY Qty: 90 RF: 3 sertraline 25 mg tablet 25 mg PO DAILY Qty: 90 RF: 3 simvastatin 10 mg tablet 10 mg PO QPM Qty: 90 RF: 3 fluocinonide 120 GM cream 120 gm Topical PRN RF: 0 Benedict-Mag 1 EACH tablet,chewable 1 ea PO DAILY RF: 0 cholecalciferol (vitamin D3) [Vitamin D3] 2,000 UNIT capsule 1,000 unit PO DAILY RF: 0 ibuprofen 200 mg capsule 200 mg PO HS RF: 0 amitriptyline 25 mg tablet 25 mg PO QHS Qty: 90 RF: 3 Hold Instructions: Home Medication placed on hold at Doctor's office methotrexate sodium 2.5 mg tablet 5 mg PO QWEEK Qty: 24 RF: 3 oxybutynin chloride 5 mg tablet 5 mg PO QHS PRN (Reason: urge incontinence) Qty: 90 RF: 1 carbidopa-levodopa 25-250 mg tablet 1 tab PO TID Qty: 90 RF: 5 carbidopa-levodopa 25-100 mg tablet 1 tab PO QHS Qty: 90 RF: 3 Discharge Instructions Instructions: Hospice Care (GEN) Additional Instructions: care to be directed by hospice services Stand Alone Forms: Nursing Discharge Form Activity:: comfort care Equipment/Supplies:: No Equipment Needed Diet:: As Tolerated Discharge Orders Discharge Orders: Discharge Order (Routine); Ordered 12/31/20 Ordered By: Akilah Rdz DS: Summary Time Spent with Patient providing and/or coordinating discharge services: Greater than 30 minutes Status at Discharge Functional status at discharge: bed bound Overall status at discharge: other (terminally ill) Mental Status: other (obtunded) Speech and Movement: other Mood: other Affect: other Exam Const General: frail appearing and ill appearing Nutritional Appearance: thin Orientation: obtunded Resp Effort & Inspection: normal respiratory effort (respirations even and unlabored. ) Psych Speech and Movement: other Affect: other DS: Data Vitals/I&O Vitals and I&O: Vital Signs Temperature 36.9 C 12/25/20 19:01 Temperature Source Skin 12/25/20 19:01 Pulse 73 12/25/20 19:01 Pulse Rhythm Regular 12/25/20 08:00 Respiratory Rate 17 12/25/20 19:01 Respiratory Effort Non-Labored 12/25/20 08:00 Respiratory Depth Normal 12/25/20 08:00 Respiratory Pattern Normal 12/25/20 08:00 Blood Pressure 183/86 H 12/25/20 19:01 Blood Pressure Position Supine 12/13/20 12:43 Pulse Oximetry 100 12/25/20 19:01 Oxygen Delivery Method Room Air 12/25/20 19:01 Oxygen Flow Rate 0 12/25/20 19:01 Pain Level 4 12/29/20 23:49 Comment 12/18/20 08:40 Intake & Output 12/30/20 12/30/20 12/31/20 11:59 23:59 11:59 Intake Total 0.973 / 0.973 2.94 / 2.94 Output Total 550 / 550 Balance 0.973 / 0.973 -547.06 / -547.06 Intake: IV 0.973 / 0.973 2.94 / 2.94 Output: Urine 550 / 550 Other: Urine Color Dark Eladia Yellow Light Eladia Urine Appearance Cloudy Clear Clear Urine Odor Normal Normal Comment pt incontinently voided in diaper fully soaked Voiding Methods Diaper Diaper Incontinent Incontinent [facility] Medical History (Updated 12/27/20 @ 15:31 by Katey Millan NP) Bilateral chronic knee pain Carpal tunnel syndrome on both sides based on sx; rheum recommends no surgery Confusion 10/31/20 Resolved with decrease of Oxybutnin to QD Cubital tunnel syndrome on left based on sx; no surgery per rheum DNI (do not intubate) DNR (do not resuscitate) 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 Encounter for hospice care discussion Goals of care, counseling/discussion Health care proxy on file daughter Robina Lau Hearing abnormally acute NO HEARING LOSS Hyperlipidemia Hypertension Hypophonia Insomnia Lewy body dementia with behavioral disturbance Ocular hemorrhage Osteoarthritis of knee (10/01/14) Overactive bladder Palliative care patient Parkinson disease advanced Parkinsonism 10/29/14; LR (SEE SCANNED) POLST (Physician Orders for Life-Sustaining Treatment) Prostate cancer RA (rheumatoid arthritis) Retinal detachment multiple, bilateral Sialorrhea 10/29/14; [facility]; (SEE SCANNED) Spinal stenosis lumbar with h/o radiculopathy Surgical History History of cataract removal with insertion of prosthetic lens LEFT REMOVAL; LEFT RETINAL BUCKLE W/VITRIECTOMY; RIGHT RETINAL DETACHMENT W/VITRIECTOMY; YAG LASER TX CLOUDED LENS History of spinal surgery Lumbar 2013 Status post carpal tunnel release LEFT Status post foot surgery Status post hip replacement RIGHT Status post prostatectomy Status post total knee replacement Bilateral Status post transurethral resection of prostate Family History (Updated 12/17/20 @ 16:53 by Lilia Dukes MD) Mother , age 80 from PD Essential hypertension Parkinson disease Father , age 90 from PD and pancreatic ca Heart disease CAD Parkinson disease Pancreatic cancer Grandfather Personal history of malignant neoplasm LEUKEMIA Grandmother Parkinson disease Grandmother Essential hypertension Stroke Daughter No problems noted. Granddaughter No problems noted. Grandson No problems noted. 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 Current gender identity: male What is your relationship status?: How often do you talk on the phone with friends or family?: three or more times per week How often do you get together with friends or relatives?: three or more times per week Panel score (0-1 are the most socially isolated patients): 1 What type of physical activity do you participate in: assisted ambulation Duration: < 15 minutes/day Frequency: daily Special shauna needs: No Seatbelt use: always Do you feel safe at home: Yes Do you feel safe in your relationship?: Yes Additional Social history: Was at home with overnight caregivers until this admission. No longer safe at home. Cannot remember how to use his cell phone. Fell and could not get up. Not taking midday medications or meals. Beginning to lean toward understanding his need to go to acute rehab; he still would like to go home after rehab stay. Not sure at this time if that would be safe. He gets mad at Robina for trying to put him in a home. She is just trying to make sure he is safe.
--- NOTE | 2020-12-31 11:28 | CHAPLAIN ---
Wade will be moved to [facility] later today. His daughter Robina is with him now, and believes that he is comfortable and relaxed. He is unresponsive now. A day or so ago he gave his resignation, Robina said. Wade said he was turning in his resignation whether anyone was going going to accept it or not, she said. Robina seems comfortable with Wade's care and said she has heard good thinks about [facility] and believes it will be a good place for Wade to be.
--- NOTE | 2020-12-31 12:23 | PDOC.CMDIS ---
- If Service Date Differs Date of service: 12/31/20 Time of Service: 12:23 LACE Index Scoring Tool - Questions: Length of Stay (in days): 14 or more Acuity (Admit via E.D.?): Yes Comorbidities: Any Tumor, Dementia E.D. Visits: 2 - Answers: Total Score: 17 Risk of Readmission: High Risk Care Management Discharge Reason for Hospitalization: Frequent falls, Parkinson's Discharge Plan: Wade will go to [facility] today, coordinated by CM and Hospice, with support from Wade's daughter. He is on comfort measures and appears comfortable with a morphine drip. CM coordinated EMS transport to the facility, and his daughter, Robina, will follow. He will have his end of life care at [facility], and the family is happy with this decision. Patient/Family Education Needs: Review discharge instructions regarding medications with [facility], family, and Hospice. Services Needed at Discharge: Home Health Care Services (Hospice), Transportation (EMS, [facility])
== END 2020-12-31 14:50 | disposition home health service (06) | DRG 57 ==
LOC: ER 14:41 → MS 15:12
PROVIDERS: Family Medicine; Internal Medicine; Admitting Provider Family Medicine; Emergency Provider Registered Nurse Emergency; PCP Family Medicine; Visit Provider Family Medicine
DX: G20 Parkinson's disease (principal); S02.122A Fracture of orbital roof, left side, initial encounter for closed fracture; S02.121A Fracture of orbital roof, right side, initial encounter for closed fracture; F02.81 Dementia in other diseases classified elsewhere, unspecified severity, with behavioral disturbance; R29.6 Repeated falls; M06.9 Rheumatoid arthritis, unspecified; I10 Essential (primary) hypertension; E78.5 Hyperlipidemia, unspecified; C61 Malignant neoplasm of prostate; K59.00 Constipation, unspecified; F02.80 Dementia in other diseases classified elsewhere, unspecified severity, without behavioral disturbance, psychotic disturbance, mood disturbance, and anxiety; R44.1 Visual hallucinations; Z51.5 Encounter for palliative care; G56.03 Carpal tunnel syndrome, bilateral upper limbs; G24.01 Drug induced subacute dyskinesia; G47.00 Insomnia, unspecified; N32.81 Overactive bladder; M48.062 Spinal stenosis, lumbar region with neurogenic claudication; Z20.822 Contact with and (suspected) exposure to COVID-19; R60.0 Localized edema; I95.1 Orthostatic hypotension; R41.3 Other amnesia; T42.8X5A Adverse effect of antiparkinsonism drugs and other central muscle-tone depressants, initial encounter; K11.7 Disturbances of salivary secretion; Z96.653 Presence of artificial knee joint, bilateral; Z96.641 Presence of right artificial hip joint; Z66 Do not resuscitate; R13.10 Dysphagia, unspecified; W07.XXXA Fall from chair, initial encounter; Z91.81 History of falling; Y92.239 Unspecified place in hospital as the place of occurrence of the external cause; S01.112A Laceration without foreign body of left eyelid and periocular area, initial encounter; S09.90XA Unspecified injury of head, initial encounter
CPT/HCPCS: 12013; 36415; 73521; 73562; 80048; 80053; 84145; 87635; 92526; 92610; 93306; 97110; 97161; 97530; 99222; 99231; 99232; 99285; 70450; 70480; 70551; 71046; 72125; 73110; 81003; 83605; 83735; 84484; 85025; 87086; 93970; 99233; 99239; 99284; J2060; J2270; J8610

== ENCOUNTER → 2020-12-16 07:22 | Outpatient (BNVA) | payer MEDICARE, BC, SELFPAY | PROVIDERS: PCP Family Medicine; Referring Provider Family Medicine; Visit Provider Psychiatry & Neurology Neurology | DX: R69 Illness, unspecified (principal) ==